=== PATIENT | female | born 1955 | race Caucasian/White ===

== ENCOUNTER → 2017-06-19 14:56 | Outpatient (CLI) | payer MEDICARE, SELFPAY ==
--- NOTE | 2017-06-19 15:16 | US_ITS ---
US thyroid HISTORY: Follow-up thyroid nodule. ITS.REASON: LEFT THYROIID NODULES ORDERING PHYSICIAN: Christiano Mendieta MD PATIENT AGE: 61 years COMPARISON: 05/06/2012, more recent studies have been performed at another institution not available for comparison FINDINGS: Right lobe: Status post right thyroidectomy Left lobe: 4.7 x 1.7 x 1.9 cm. Solid appearing isoechoic nodule upper pole 1.3 x 1.2 cm. Unchanged 5 mm area of calcification with posterior acoustical shadowing mid polar region 5 mm hypoechoic nodule mid polar region 10 x 6 mm isoechoic solid-appearing nodule lower pole probably unchanged given the difference in technique. IMPRESSION: 1. Right thyroidectomy. 2. Multiple left thyroid nodules overall not significantly changed
[2017-06-19 18:34] LABS: Thyroid Stimulating Hormone 0.72 uIU/ml (0.358-3.740)
[2017-06-20 14:37] LABS: Free T4 (Free Thyroxine) 1.44 ng/dl (0.76-1.46)
== END ==
PROVIDERS: Family Provider Family Medicine; PCP Family Medicine; Visit Provider Otolaryngology
DX: E03.0 Congenital hypothyroidism with diffuse goiter (principal)
CPT/HCPCS: 36415; 76536; 84439; 84443; 84481

== ENCOUNTER → 2017-09-12 08:34 | Outpatient (CLI) | payer MEDICARE, SELFPAY ==
--- NOTE | 2017-09-12 08:38 | MR_ITS ---
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 Neck pain. Tingling and numbness in left hand. Pain in rt hand. Symptoms x1 month ITS.REASON: neck pain ORDERING PHYSICIAN: Can Hays PATIENT AGE: 61 years COMPARISON: None TECHNIQUE: Standard multiplanar multiecho sequences are performed without contrast. 3-D MIP and myelographic images are also rendered and reviewed FINDINGS: There is normal alignment. There is exaggeration of the cervical lordosis. The craniocervical junction has an unremarkable appearance. C2-C3: Unremarkable. C3-C4: Mild right-sided uncovertebral and facet hypertrophy with mild right foraminal narrowing. C4-C5: Right-sided uncovertebral and facet hypertrophy with moderate right-sided foraminal narrowing C5-C6: Severe degenerative disc disease with endplate osteophytes bulging disc/osteophyte complex posteriorly with facet and uncovertebral hypertrophy with severe right-sided foraminal narrowing and mild left foraminal narrowing. There is canal stenosis with mild impingement upon the anterior aspect of the cord and minimal cord flattening. C6-C7: Moderate degenerative disc disease with bulging disc with bilateral uncovertebral hypertrophy and moderate to severe bilateral foraminal narrowing with canal stenosis of 9 mm. The cord does not appear flattened or imaged upon at this level. C7-T1: Degenerative disc disease. T1-T2: Degenerative disc disease with minimal central disc protrusion/bulging of the disc as seen on the sagittal images. IMPRESSION: 1. Abnormal MRI of the cervical spine with degenerative disc disease and bulging discs/disc osteophyte complexes along with facet and uncovertebral hypertrophy/arthritic change with multilevel cervical spondylosis as described above. Please see above for detailed description at each level. 2 .Severe degenerative disc disease at C5-C6 with endplate osteophytes bulging disc/osteophyte complex posteriorly with facet and uncovertebral hypertrophy with severe right-sided foraminal narrowing and mild left foraminal narrowing. There is canal stenosis with mild impingement upon the anterior aspect of the cord and minimal cord flattening. 3. C6-C7: Moderate degenerative disc disease with bulging disc with bilateral uncovertebral hypertrophy and moderate to severe bilateral foraminal narrowing with canal stenosis of 9 mm. The cord does not appear flattened or imaged upon at this level.
== END ==
PROVIDERS: Family Provider Family Medicine; PCP Family Medicine; Visit Provider Nurse Practitioner Family
DX: M54.2 Cervicalgia (principal); G62.9 Polyneuropathy, unspecified; M79.641 Pain in right hand; M79.642 Pain in left hand
CPT/HCPCS: 72141; 76376

== ENCOUNTER → 2017-10-01 10:00 | Outpatient (POV) | payer MEDICARE, SELFPAY ==
[2017-10-01 11:43] LABS: Basophils % 0.5 % (0.1-2.0); Eosinophils # 0.2 K/mm3 (0.0-0.4); Eosinophils % 2.3 % (0.1-12.0); Hematocrit 47.2 % (37.0-47.0); Hemoglobin 15.3 g/dL (12.2-16.2); Lymphocytes # 1.8 K/mm3 (0.7-4.5); Mean Corpuscular HGB Conc 32.4 g/dL (31.8-35.4); Mean Corpuscular Hemoglobin 28.4 pg (27.0-31.2); Mean Corpuscular Volume 87.4 fl (81-99); Monocytes # 0.3 K/mm3 (0.1-1.0); Neutrophils # 4.3 K/mm3 (1.8-7.8); Neutrophils % 65.2 % (37.0-80.0); Platelet Count 204 K/mm3 (142-424); Red Cell Distribution Width 12.8 % (11.5-17.5); White Blood Count 6.6 K/mm3 (4.8-10.8)
[2017-10-01 13:44] LABS: Alanine Aminotransferase 39 U/L (12-78); Albumin/Globulin Ratio 1.4 (1.1-1.8); Alkaline Phosphatase 65 U/L (46-116); Anion Gap 13.1 mEq/L (5-15); Aspartate Amino Transferase 20 U/L (15-37); Bilirubin,Total 0.3 mg/dL (0.2-1.0); Blood Urea Nitrogen 16 mg/dL (7-18); Carbon Dioxide 28 mmol/L (21.0-32.0); Chloride 105 mmol/L (98-107); Creatinine,Serum 0.91 mg/dL (0.55-1.02); Estimated Glomerular Filt Rate 63 ml/min (>60); GFR (African American) 76 ML/MIN (>60); Globulin 2.9 gm/dl (1.3-3.2); Glucose 126 mg/dL (74-106); Potassium 4.1 mmoL/L (3.5-5.1); Sodium 142 mmol/L (136-145); Total Protein,Serum 6.9 gm/dL (6.4-8.2)
[2017-10-03 06:43] LABS: Vitamin B12 363 pg/mL (232-1245); Vitamin D 25 Hydroxy 20.8 ng/mL (30.0-100.0)
== END ==
PROVIDERS: Nurse Practitioner Family; Family Provider Family Medicine; PCP Family Medicine; Visit Provider Specialist
DX: M54.2 Cervicalgia (principal); M79.641 Pain in right hand; M79.642 Pain in left hand; G62.9 Polyneuropathy, unspecified
CPT/HCPCS: 36415; 80053; 82607; 82652; 85025; 95886; 95909

== ENCOUNTER → 2017-11-01 14:13 | Outpatient (POV) | payer MEDICARE, SELFPAY | PROVIDERS: Family Provider Family Medicine; PCP Family Medicine; Visit Provider Neurological Surgery | DX: Z00.00 Encounter for general adult medical examination without abnormal findings (principal) ==

== ENCOUNTER 2017-11-02 11:00 | Outpatient (RCR) | payer MEDICARE, SELFPAY ==
--- NOTE | 2017-10-12 11:33 | HMH.PTOPEV ---
Rehab Outpatient Evaluation Rehab OP Evaluation Start: 10/12/17 11:22 Freq: Status: Active Protocol: Document 10/12/17 11:22 ED (Rec: 10/12/17 11:31 ALFONSOERNESTOSOWMYA [id number]) Electronically Signed By Kyree Randolph, PT 10/12/17 11:22 Outpatient Therapy Subjective History Subjective History Patient is a 61 year old female presenting to outpatient PT with reports of chronic neck pain. Most recent diagnostics indicate cervical spine DDD/OA. Hx of thoracolumbar scoliosis with Mendez rosalee placement approximately 22 years ago. She is currently being treated in OT for L CTS. No reports of RUE radiculopathy. Chief Complaint Pain Stiff Symptom Type Ache Sharp Symptoms Relieved By Rest/Positioning Symptoms Aggravated By Physical Activity Prior Functional Limitations None Current Functional Limitations Reaching Lifting Housework Dressing Driving Sleeping Recreation Activity Walking Symptom Description Constant but Variable Level of pain today (0-10) 3 Pain scale - at its best (0-10) 7 Pain scale - at its worst (0-10) 2 Cervical Eval Palpation Cervical Muscles R Cervical Paraspinal Flexibility Deficits Upper Trapezius Muscle Length (R) Moderate Tightness (L) Moderate Tightness Pectoralis Minor Muscle Length (R) Moderate Tightness (L) Moderate Tightness Passive Joint Mobility Cervical PIVM Dec: R OA L OA R AA L AA R C2/3 L C2/3 R C3/4 L C3/4 R C4/5 L C4/5 R C5/6 L C5/6 R C6/7 L C6/7 R C7/T1 L C7/T1 AROM Cervical Spine E
--- NOTE | 2017-10-12 11:57 | HMH.PTOPEV ---
Rehab Outpatient Evaluation Rehab OP Evaluation Start: 10/12/17 11:22 Freq: Status: Active Protocol: Document 10/12/17 11:28 RMARSHALL (Rec: 10/12/17 11:56 [id number] Electronically Signed By Gary Dunaway OT 10/12/17 11:28 Outpatient Therapy Subjective History Subjective History Pt is a 61 year old female who reports to therapy for initial evaluation to bilateral hands. Pt reports her pain in the left thumb started ~6-7 months ago and her right thumb just started hurting her as well. Pt had a nerve conduction test resulting in bilateral carpal tunnel. However, all of her pain is at bilateral thumb bases. She does not have any symptoms in the hand. Pt also test positive for Nilda test in both thumbs; indicative of de Quervains. Pt's AROM/Strength in bilateral wrist is WNL. Both thumbs are declined in AROM and strength. Devops Developer strength is affect as well. Right hand is dominant. Pt will continue to be seen in order to address these deficits. Chief Complaint Pain Stiff Swelling Weakness Decreased Devops Developer Strength Decreased Coordination Symptom Type Ache Throb Sharp Dull Stabbing Shooting Symptoms Relieved By Nothing Symptoms Aggravated By Physical Activity Twisting Lifting Prior Functional Limitations None Current Functional Limitations Reaching Lifting Housework Dressing Desk Work/Reading Driving Sleeping Recreation Activity Symptom Description Constant but Variab
== END 2017-11-02 11:01 | disposition home or self-care (01) ==
LOC: PT 11:00
PROVIDERS: Family Provider Family Medicine; PCP Family Medicine; Visit Provider Specialist
DX: M50.30 Other cervical disc degeneration, unspecified cervical region; G62.9 Polyneuropathy, unspecified; G56.01 Carpal tunnel syndrome, right upper limb; G56.02 Carpal tunnel syndrome, left upper limb
CPT/HCPCS: 97010; 97012; 97014; 97033; 97035; 97110; 97140; 97163; 97166; G0283

== ENCOUNTER 2018-05-24 14:30 | Outpatient (RCR) | payer MEDICARE, SELFPAY ==
--- NOTE | 2018-04-30 09:32 | HMH.PTOPEV ---
PT Outpatient Evaluation Rehab PT Outpatient Evaluation Start: 04/30/18 09:21 Freq: Status: Active Protocol: Document 04/30/18 09:22 TIBURCIO (Rec: 04/30/18 09:32 TIBURCIO [id number]) Electronically Signed By Shawn Rojas, PT 04/30/18 09:22 Outpatient Therapy Subjective History Subjective History Pt reports h/o chronic back pain for ~40 yrs. Pt reports multiple spine sx's, loyola rods for scoliosis, and fusions of all lumbar levels. Pt reports exacerbation of back pain over the last ~2 months, L sided lumbar mm pain and sacral area pain as well, insidious onset . Chief Complaint Pain Stiff Symptom Type Ache Sharp Dull Symptoms Relieved By Heat Ice Symptoms Aggravated By Sitting Standing Physical Activity Prior Functional Limitations Driving Standing Sitting Current Functional Limitations Driving Standing Sitting Symptom Description Constant but Variable Level of pain today (0-10) 8 Pain scale - at its best (0-10) 7 Pain scale - at its worst (0-10) 8 Lumbopelvic Eval Posture Thoracic Spine Posture Standing Position Flattened Lumbar Spine Posture Standing Position Flattened Assistive device Assistive Devices None / NA Gait Observation General Gait Pattern Observation Antalgic Gait Palapation tenderness left paraspinal tenderness Yes: 3/4 buttock tenderness Yes: 3/4 Lumbar/Sacral Palpation Findings Tenderness Accessory Movement L-spine Vertebrae Accessory Movements Left P/A Kerens that Elicit Symptoms S1 left bilateral Range of Motion Lumbar Spine Active Flexion Range of 0-50 Motion (degrees) Lumbar Spine Active Extension Range of 0-5 Motion (degrees) Left Lumbar Spine Lateral Flexion Active 0-10 Range of Motion (degrees) Right Lumbar Spine Lateral Flexion 0-10 Active Range of Motion (degrees) Lumbar Spine ROM Limitations Bony Restriction Pain Manual Muscle Test Bilateral Knee Extension Strength Grade 5 Normal Knee Flexion Strength Grade 5 Normal
== END 2018-05-24 14:35 | disposition home or self-care (01) ==
LOC: PT 14:30
PROVIDERS: Visit Provider Family Medicine
DX: M54.5 Low back pain (principal); M54.9 Dorsalgia, unspecified
CPT/HCPCS: 97010; 97014; 97035; 97110; 97163; G0283

== ENCOUNTER → 2018-06-19 12:59 | Outpatient (CLI) | payer MEDICARE, SELFPAY | PROVIDERS: PCP Family Medicine; Visit Provider Family Medicine | DX: M54.5 Low back pain (principal) ==

== ENCOUNTER → 2018-06-26 08:21 | Outpatient (CLI) | payer MEDICARE, SELFPAY | PROVIDERS: PCP Family Medicine; Visit Provider Family Medicine | DX: M54.42 Lumbago with sciatica, left side (principal); M54.41 Lumbago with sciatica, right side ==

== ENCOUNTER → 2018-08-14 09:58 | Outpatient (CLI) | payer MEDICARE, SELFPAY ==
--- NOTE | 2018-08-14 10:07 | MM_ITS ---
MM Dig screening mamm BI w/CAD CAD Screening COMPARISON: Digital mammograms with CAD 02/23/2011, INDICATION: There is a history of breast cancer in patient's mother diagnosed at age 50 TECHNIQUE: Standard CC and MLO images were obtained. R2 CAD reviewed. FINDINGS: Scattered fibroglandular densities are seen throughout both breast. There is an asymmetric density near the axillary tail of the left breast seen on the MLO view which was seen on the previous study and is actually slightly smaller than noted previously. This likely is a summation shadow as it is not definitely seen on the cc view and exaggerated cc views. There is no suspicious lesion and there are no suspicious microcalcifications. There are couple of benign-appearing microcalcifications right breast. IMPRESSION: Fibrofatty parenchyma no suspicious lesion seen BI-RADS Category: 2 Benign Finding(s) RECOMMENDED FOLLOW-UP: 1YR - 1 YEAR FOLLOW-UP (A letter has been sent to the patient regarding results of the study.)
--- NOTE | 2018-08-14 10:08 | XR_ITS ---
XR DEXA axial skeleton HISTORY: ITS.REASON: POST MENOPAUSAL ORDERING PHYSICIAN: Ghassan Johansen MD PATIENT AGE: 62 years COMPARISON: None FINDINGS: The BMD measured at the Left femoral neck is 1.084 g/cm squared with a T score of 0.3. This is considered Normal according to the World Health Organization criteria. Fracture risk is Low. IMPRESSION: Normal bone density with low fracture risk. Suggest follow-up exam July 2020
== END ==
PROVIDERS: PCP Family Medicine; Visit Provider Family Medicine
DX: Z12.31 Encounter for screening mammogram for malignant neoplasm of breast (principal); Z78.0 Asymptomatic menopausal state
CPT/HCPCS: 77067; 77080

== ENCOUNTER → 2018-09-05 14:34 | Outpatient (CLI) | payer MEDICARE, SELFPAY ==
--- NOTE | 2018-09-05 | CA_ITS ---
PROCEDURE: 2-D M-mode and color Doppler study INDICATIONS FOR THE TEST: Chest pain COPD Heart Murmur Tobacco Smoking Palpitations Fatigue Syncope Edema Hypertension+Diabetes Mellitus+ Rheumatic Fever SOB [place] Obesity Hyperlipidemia+ Family History HD Additional History PT STATES BAV ACCORDING TO HEART CATH PATIENT INFORMATION HEIGHT: 67 WEIGHT:197 GENDER: Female B/P:138/64 2-D/M-MODE INTERPRETATION: 2-D MEASUREMENTS OBSERVED VALUES IN CMS Right Ventricular Dimension (RVDd) 1.6 Interventricular Septum (Thickness)(IVsd) 1.3 Left Ventricular Internal Dimensions(LVIDd) 5.0 Left Ventricular Posterior Wall (Thickness)(LVPWd) 0.8 Aortic Root 2.9 Aortic Cusp Separation 1.7 Left Atrial Dimensions (LAD) 3.3 2D 1. Left atrium is mildly enlarged, left ventricle is normal size, mild concentric left ventricular hypertrophy, visually estimated ejection fraction of 55% with no regional wall motion abnormality. 2. The right atrium and right ventricle are normal size and contractility. 3. The aortic valve is trileaflet, its minimally thickened and calcified. 4. The mitral and tricuspid valvular grossly normal. 5. The pulmonic valve is poorly visualized. 6. No significant pericardial effusion noted. DOPPLER INTERROGATION: Doppler interrogation of the aortic, mitral and tricuspid valve reveals presence of moderate aortic, mild mitral and tricuspid regurgitation, tricuspid regurgitation jet velocity is inadequate for calculation of the right ventricular systolic pressure, grade 1 diastolic dysfunction seen with tissue Doppler evidence of raised left atrial pressure. Inferior vena cava is not well visualized CONCLUSION: 1. Mildly enlarged left atrium, normal left ventricular size, mild concentric left ventricular hypertrophy, visually estimated ejection fraction 55% with no regional wall motion abnormality, grade 1 diastolic dysfunction seen with tissue Doppler evidence of raised left atrial pressure. 2. Thickened and calcified aortic valve, aortic valve is trileaflet, there is no aortic stenosis, there is moderate aortic insufficiency. 3. Mild mitral and tricuspid regurgitation 4. No significant pericardial effusion noted.
== END ==
PROVIDERS: PCP Physician Assistant; Visit Provider Physician Assistant
DX: R01.1 Cardiac murmur, unspecified (principal)
CPT/HCPCS: 93306

== ENCOUNTER 2018-09-13 03:00 | Inpatient (IN) ==
[2018-09-13 03:40] LABS: Microscopic, Urine URINE MICROSCOPIC (MICROSCOPIC)
[2018-09-13 03:41] LABS: Basophils # 0.1 K/mm3 (0-0.2); Basophils % 0.5 % (0.1-2.0); Eosinophils # 0.1 K/mm3 (0.0-0.4); Eosinophils % 1.1 % (0.1-12.0); Hematocrit 46.4 % (37.0-47.0); Hemoglobin 15.5 g/dL (12.2-16.2); Lymphocytes # 2.7 K/mm3 (0.7-4.5); Lymphocytes % 22.3 % (10-50); Mean Corpuscular HGB Conc 33.5 g/dL (31.8-35.4); Mean Corpuscular Hemoglobin 28.2 pg (27.0-31.2); Mean Corpuscular Volume 84.1 fl (81-99); Mean Platelet Volume 7.7 fl (7.4-10.4); Monocytes # 0.7 K/mm3 (0.1-1.0); Monocytes % 6.1 % (1.7-9.3); Neutrophils # 8.3 K/mm3 (1.8-7.8); Neutrophils % 69.9 % (37.0-80.0); Platelet Count 258 K/mm3 (142-424); Red Blood Count 5.51 M/mm3 (4.20-5.40); Red Cell Distribution Width 13.3 % (11.5-17.5); White Blood Count 11.9 K/mm3 (4.8-10.8)
[2018-09-13 03:44] LABS: Appearance,Urine CLEAR (Clear); Bilirubin,Urine Negative (Negative); Blood, Urine Negative (Negative); Color,Urine YELLOW (Yellow); Glucose,Urine (UA) Negative (Negative); Ketones,Urine Negative (Negative); Leukocyte Esterase,Urine 1+ (Negative); Protein,Urine Negative (Negative)
[2018-09-13 03:54] LABS: Albumin Level 4.1 gm/dL (3.4-5.0); Albumin/Globulin Ratio 1.1 (1.1-1.8); Bilirubin,Total 0.5 mg/dL (0.2-1.0); C-Reactive Protein 1.7 mg/L (0.0-0.9); Calcium 9.8 mg/dL (8.5-10.1); Globulin 3.9 gm/dl (1.3-3.2)
[2018-09-13 03:57] LABS: Bacteria,Urine 1+ /lpf
[2018-09-13 04:27] LABS: Erythrocyte Sedimentation Rate 8 mm/hr (0-30)
--- NOTE | 2018-09-13 05:36 | Emergency Department Note ---
ED Disposition Clinical Impression: Diverticulitis, Renal insufficiency Disposition: Admitted As Inpatient Condition on Discharge: Good Referrals: Ghassan Johansen MD [Primary Care Provider] - - Critical Care Critical Care Time: No Attestation: On 09/13/18, the high probability of a clinically significant, sudden or life threatening deterioration of the following system(s) required my full and direct attention, intervention and personal management. The time I documented below is in addition to time spent performing reported procedures but includes the following listed in this critical care notation. Medical Decision Making - Medical Records Medical records reviewed: Yes: I reviewed the patient's medical records. - Bob Inquiry Pt receiving controlled substance: No Vital Signs: 09/13/18 03:01 Temperature 98.3 F Temperature Source Oral Pulse Rate [Right Radial] 77 Respiratory Rate 18 Blood Pressure [Right Arm] 155/71 H Blood Pressure Mean [Right Arm] 99 Blood Pressure Source [Right Arm] Automatic Cuff Blood Pressure Position [Right Arm] Sitting 02 Sat by Pulse Oximetry 91 L - Lab Data Lab results reviewed: Yes: I reviewed the patient's lab results. Lab Results 09/13/18 03:30: Urine Color Yellow, Urine Appearance Clear, Urine pH 6.0, Ur Specific Joes 1.020, Urine Protein Negative, Urine Glucose (UA) Negative, Urine Ketones Negative, Urine Blood Negative, Urine Nitrate Negative, Urine Bilirubin Negative, Urine Urobilinogen 1.0, Ur Leukocyte Esterase 1+ A, Urine WBC 5-10, Ur Squamous Epith Cells 3-5, Urine Bacteria 1+ 09/13/18 03:30: WBC 11.9 H, RBC 5.51 H, Hgb 15.5, Hct 46.4, MCV 84.1, MCH 28.2, MCHC 33.5, RDW 13.3, Plt Count 258, MPV 7.7, Neut % (Auto) 69.9, Lymph % (Auto) 22.3, Williamson % (Auto) 6.1, Eos % (Auto) 1.1, Baso % (Auto) 0.5, Neut # (Auto) 8.3 H, Lymph # (Auto) 2.7, Williamson # (Auto) 0.7, Eos # (Auto) 0.1, Baso # (Auto) 0.1, ESR 8 09/13/18 03:30: Sodium 139, Potassium 4.0, Chloride 99, Carbon Dioxide 30, Anion Gap 14.0, BUN 27 H, Creatinine 1.07 H, Estimated Creat Clear 78, Estimated GFR 52 L, Est GFR ( Amer) 63, Glucose 182 H, Calcium 9.8, Total Bilirubin 0.5, AST 17, ALT 35, Alkaline Phosphatase 81, C-Reactive Protein 1.7 H, Total Protein 8.0, Albumin 4.1, Globulin 3.9 H, Albumin/Globulin Ratio 1.1, Amylase 64, Lipase 456 H Result diagrams: 09/13/18 03:30 09/13/18 03:30 Orders (Tests/Meds): ED MEDICATIONS Generic Name Dose Route Start Last Admin Trade Name Freq PRN Reason Stop Dose Admin Sodium Chloride 1,000 mls @ 999 mls/hr 09/13/18 03:30 09/13/18 03:36 Sod Chlor 0.9% 1000ml Bag IV 09/13/18 04:30 999 mls/hr .Q1H1M RADHA Administration Discontinued Medications Generic Name Dose Route Start Last Admin Trade Name Freq PRN Reason Stop Dose Admin Hydromorphone HCl 0.5 mg 09/13/18 03:28 09/13/18 03:35 Dilaudid 2mg/Ml Syringe IV 09/13/18 03:29 0.5 mg ONCE ONE Administration Ioversol 75 ml 09/13/18 04:50 09/13/18 04:51 Rad-Optiray 350 100ml Vial IV 09/13/18 04:51 75 ml ONCE ONE Administration Protocol Ketorolac Tromethamine 30 mg 09/13/18 03:28 09/13/18 03:39 Toradol 30mg/Ml Vial IV 09/13/18 03:29 30 mg ONCE ONE Administration Ondansetron HCl 4 mg 09/13/18 03:28 09/13/18 03:39 Zofran 4mg/2ml Vial IV 09/13/18 03:29 4 mg ONCE ONE Administration Sodium Chloride 10 ml 09/13/18 04:50 09/13/18 04:51 Rad-Saline Flush 10ml Syringe IV 09/13/18 04:51 10 ml ONCE ONE Administration ORDERS Category Date Time Status Urine Culture Stat Micro 09/13/18 03:30 Received - CT Data CT Scan: Abdomen, Pelvis Time Received: 05:[address] Reviewed: Yes: I have viewed the radiologist's interpretation Preliminary Findings: Abnormal (diverticulitis) - Physician Consults Physician Consulted: mary grace Reason -: Admission Nausea/Vomiting/Diarrhea HPI - General Chief complaint: Abdominal Pain Stated complaint: pain in lft groin area Time Seen by Provider: 09/13/18 04:00 Mode of Arrival: Ambulatory Source of Information: Patient, Spouse, Medical Record Limitations: No Limitations Description of Symptoms (Recalled from ER Triage Doc. by RN): c/o lower lt to mid abd pain. started james. says she has an appointment with Mirta of in the am but couldnt stand it any longer. - History of Present Illness HPI Narrative: pt with 2 day hx of lt lower abd pain with nausea complaint: nausea, vomiting, abdominal pain Onset (ago): day(s) Associated Abdominal Pain: Yes Location of pain: LLQ Severity: moderate Associated symptoms: denies other symptoms - Related Data Home Medications Medication Instructions Recorded Confirmed duloxetine 60 mg capsule,delayed 60 mg PO DAILY 30 Days #30 09/05/17 09/13/18 release fenofibric acid (choline) 135 mg 135 mg PO DAILY 30 Days #30 09/05/17 09/13/18 capsule,delayed release levothyroxine 88 mcg tablet 88 mcg PO DAILY 90 Days #90 09/05/17 09/13/18 losartan 100 1 tab PO DAILY 90 Days #90 09/05/17 09/13/18 mg-hydrochlorothiazide 12.5 mg tablet sitagliptin 50 mg-metformin ER 1 tab PO DAILY 30 Days #60 09/05/17 09/13/18 1,000 mg tablet,extended release 24h mp Carvedilol [Carvedilol 6.25mg Tab] 6.25 mg PO BID 09/13/18 09/13/18 Furosemide [Furosemide 20mg Tab] 20 mg PO DAILY 09/13/18 09/13/18 Allergies Allergy/AdvReac Type Severity Reaction Status Date / Time morphine [MORPHINE] Allergy Unknown GI UPSET Verified 09/13/18 03:04 Sulfa (Sulfonamide Allergy Unknown SWELLING Verified 09/13/18 03:04 Antibiotics) [SULFA (SULFONAMIDE ANTIBIOTICS)] sulfamethoxazole Allergy Unknown SWELLING Verified 09/13/18 03:04 [From BACTRIM] trimethoprim [From BACTRIM] Allergy Unknown SWELLING Verified 09/13/18 03:04 [facility] History - Hepatitis A Screen Drug use history?: No High risk sexual behaviors?: No History of sexually transmitted infection?: No Currently employed?: No Childcare worker?: No Do you have indoor plumbing?: Yes Do you have electricity?: Yes Attestation statement:: This patient has been screened for Hepatitis A risk factors. I have reviewed the patient's past medical history: Yes Medical History: Reports:: Depression, Diabetes Mellitus Type 2, Hyperlipidemia, Hypertension, Kidney Stones Other Medical History: Reports: Arthritis, Thyroid Disease Laterality Cases: Bilateral: Tonsillectomy Other Surgeries: Yes: Cholecystectomy, Hysterectomy-Total, Thyroidectomy, Tubal Ligation, Other Comment: back - Social History Smoking Status: Never smoker Alcohol Intake: never Alcohol Intake Frequency:: other Substance Use Type: denies use Occupational Status: retired Housing: house Household Members: family - Psychiatric History Expresses thoughts of harming self/others: None Suicide Plan Description: No Plan Pschychiatric History:: Reports:: Depression Family Hx:: Cancer ROS Obtained: Yes All systems reviewed & no additional complaints - Constitutional Constitutional: Denies fever(s) - Eyes Eyes: Denies change in vision - ENT Ears, Nose, Mouth, and Throat: Denies sore throat - Cardiovascular Cardiovascular: Denies chest pain - Respiratory Respiratory: No cough - Gastrointestinal Gastrointestingal: Reports: abdominal pain, nausea, vomiting. Denies: diarrhea - Genitourinary Female Genitourinary: Denies hematuria - Musculoskeletal Musculoskeletal: Denies limited range of motion, Denies neck pain - Integumentary/Breasts Skin/Breast: Denies rash - Neurologic Neurologic: Denies seizure-like activity Physical Exam - General General appearance: alert - Head Head exam: normocephalic - Eye Eye exam: Present: PERRL, EOMI - ENT ENT exam: Present: mucous membranes moist - Neck Neck exam: Present: trachea midline - Respiratory Respiratory exam: Present: normal lung sounds bilaterally - Cardiovascular Cardiovascular exam: Present: regular rate, systolic murmur - Abdominal Exam Abdominal exam: Present: soft, tenderness Abdominal tenderness: Present: LLQ, moderate - Extremities Exam Extremities exam: Present: full ROM - Neurological Exam Neurological exam: Present: alert, oriented X3, CN II-XII intact - Psychiatric Psychiatric exam: Present: normal affect - Skin Skin exam: Absent: rash
--- NOTE | 2018-09-13 07:50 | Pharmacy Consult Notes ---
[facility] Pharmacy VTE Monitoring - Patient Demographics Admission date: 09/13/18 Report Date: 09/13/18 Time: 07:50 Allergies/Adverse Reactions: Patient Allergies morphine [MORPHINE] Allergy (Unknown, Verified 09/13/18 03:04) GI UPSET Sulfa (Sulfonamide Antibiotics) [SULFA (SULFONAMIDE ANTIBIOTICS)] Allergy (Unknown, Verified 09/13/18 03:04) SWELLING sulfamethoxazole [From BACTRIM] Allergy (Unknown, Verified 09/13/18 03:04) SWELLING trimethoprim [From BACTRIM] Allergy (Unknown, Verified 09/13/18 03:04) SWELLING Height: 1.7 m Weight: 92.164 kg Patient Problems: Current Active Problems Diverticulitis (Acute) Renal insufficiency (Acute) - VTE Risk Labs: VTE Related Lab Results Hgb 15.5 g/dL (12.2-16.2) 09/13/18 03:30 Hct 46.4 % (37.0-47.0) 09/13/18 03:30 Plt Count 258 K/mm3 (142-424) 09/13/18 03:30 BUN 27 mg/dL (7-18) H 09/13/18 03:30 Creatinine 1.07 mg/dL (0.55-1.02) H 09/13/18 03:30 Estimated Creat Clear 78 mL/min (50-200) 09/13/18 03:30 Was VTE Risk Assessment Performed: Yes VTE Score: 5 VTE Risk Level: Low Risk Clinical Trial Participant: No - Prophylaxis VTE Prophylaxis Ordered?: Yes Types of VTE Prophylaxis: TEDS Knee High
--- NOTE | 2018-09-13 08:32 | History & Physical Report ---
*Admission Date: 09/13/18 *Chief complaint: LLQ pain *History of present illness: Ms. Cano is a 62-year-old female with a history of diabetes, hypertension, hyperlipidemia, and history of diverticulosis with an episode of diverticulitis approximately 6 years ago. She states on Sunday she began having left lower quadrant pain and felt constipated. The pain continued to worsen, thus she presented to the emergency room for evaluation. She was found to have a diverticulitis on CT scan and was admitted for pain management and IV antibiotics. [facility] History Medical History: Reports:: Congestive Heart Failure, Depression, Diabetes Mellitus Type 2, Hyperlipidemia, Hypertension, Kidney Stones Denies:: Cancer, Diabetes Mellitus Type 1, MRSA *Have you ever received a pneumonia vaccine?: Yes *Have you received a flu vaccine this season?: No Other Medical History: Reports: Arthritis, Thyroid Disease, Other (Diverticulosis/Diverticulitis) Laterality Cases: Bilateral: Tonsillectomy Other Surgeries: Yes: Appendectomy, Cardiac Catheterization, Cholecystectomy, Colonoscopy, EGD, Hysterectomy-Total, Thyroidectomy, Tubal Ligation, Other (Back surgery) Amputation: No Fractures: No - *Social History Educational Level: Completed High School Smoking Status: Never smoker Alcohol Intake: never Alcohol Intake Frequency:: other Substance Use Type: denies use *Occupational Status:: retired Housing: house Household Members: spouse *Travel in the last 8 weeks: None - Psychiatric History Expresses thoughts of harming self/others: None Suicide Plan Description: No Plan Pschychiatric History:: Reports:: Depression Family Hx:: Cancer, Diabetes, Hyperlipidemia Review of Systems - Constitutional Denies chills, Denies fever(s), Denies weakness - Eyes Denies blurry vision, Denies double vision - ENT Denies nasal congestion, Denies sore throat - *Cardiovascular Denies chest pain, Denies rapid, pounding, or irregular heartbeat - *Respiratory Denies cough, Denies shortness of breath - *Gastrointestinal Reports abdominal pain (LLQ), Reports constipation, Denies loose stools, Denies nausea, Denies vomiting - *Genitourinary Denies difficulty urinating, Denies painful urination - *Musculoskeletal Reports back pain - *Neurologic Denies headache(s), Denies seizure-like activity, Denies dizziness, Denies weakness Meds Home Medications Medication Instructions Recorded Confirmed Type duloxetine 60 mg capsule,delayed 60 mg PO DAILY 30 Days #30 09/05/17 09/13/18 History release fenofibric acid (choline) 135 mg 135 mg PO DAILY 30 Days #30 09/05/17 09/13/18 History capsule,delayed release levothyroxine 88 mcg tablet 88 mcg PO DAILY 90 Days #90 09/05/17 09/13/18 History losartan 100 1 tab PO DAILY 90 Days #90 09/05/17 09/13/18 History mg-hydrochlorothiazide 12.5 mg tablet Carvedilol [Carvedilol 6.25mg Tab] 6.25 mg PO BID 09/13/18 09/13/18 History Furosemide [Furosemide 20mg Tab] 20 mg PO DAILY 09/13/18 09/13/18 History Gabapentin [Gabapentin 100mg Cap] 100 mg PO NEEDED PRN 09/13/18 09/13/18 History Metformin HCl 1,000 mg PO BID 09/13/18 09/13/18 History Montelukast Sodium [Montelukast 10 mg PO HS 09/13/18 09/13/18 History 10mg Tab] Allergies Allergy/AdvReac Type Severity Reaction Status Date / Time morphine [MORPHINE] Allergy Unknown GI UPSET Verified 09/13/18 03:04 Sulfa (Sulfonamide Allergy Unknown SWELLING Verified 09/13/18 03:04 Antibiotics) [SULFA (SULFONAMIDE ANTIBIOTICS)] sulfamethoxazole Allergy Unknown SWELLING Verified 09/13/18 03:04 [From BACTRIM] trimethoprim [From BACTRIM] Allergy Unknown SWELLING Verified 09/13/18 03:04 Exam Vital signs and Labs for Last 24 Hours: Temp Pulse Resp BP Pulse Ox 97 F L 60 24 136/55 L 94 L 09/13/18 06:32 09/13/18 06:32 09/13/18 06:32 09/13/18 06:32 09/13/18 06:32 Laboratory Results - last 24 hr 09/13/18 03:30: Urine Color Yellow, Urine Appearance Clear, Urine pH 6.0, Ur Specific [place] 1.020, Urine Protein Negative, Urine Glucose (UA) Negative, Urine Ketones Negative, Urine Blood Negative, Urine Nitrate Negative, Urine Bilirubin Negative, Urine Urobilinogen 1.0, Ur Leukocyte Esterase 1+ A, Urine WBC 5-10, Ur Squamous Epith Cells 3-5, Urine Bacteria 1+ 09/13/18 03:30: WBC 11.9 H, RBC 5.51 H, Hgb 15.5, Hct 46.4, MCV 84.1, MCH 28.2, MCHC 33.5, RDW 13.3, Plt Count 258, MPV 7.7, Neut % (Auto) 69.9, Lymph % (Auto) 22.3, [place] % (Auto) 6.1, Eos % (Auto) 1.1, Baso % (Auto) 0.5, Neut # (Auto) 8.3 H, Lymph # (Auto) 2.7, [place] # (Auto) 0.7, Eos # (Auto) 0.1, Baso # (Auto) 0.1, ESR 8 09/13/18 03:30: Sodium 139, Potassium 4.0, Chloride 99, Carbon Dioxide 30, Anion Gap 14.0, BUN 27 H, Creatinine 1.07 H, Estimated Creat Clear 78, Estimated GFR 52 L, Est GFR ( Amer) 63, Glucose 182 H, Calcium 9.8, Total Bilirubin 0.5, AST 17, ALT 35, Alkaline Phosphatase 81, C-Reactive Protein 1.7 H, Total Protein 8.0, Albumin 4.1, Globulin 3.9 H, Albumin/Globulin Ratio 1.1, Amylase 64, Lipase 456 H 09/13/18 06:32: POC Glucose 139 H I & O for Last 24 hours: Intake & Output 09/10/18 09/11/18 09/12/18 09/13/18 11:59 11:59 11:59 11:59 Intake Total 1100 / 1100 Balance 1100 / 1100 Weight 203 lb 3 oz - Constitutional no acute distress - *Routine HEENT Exam Head: Present: normocephalic Eye: Present: EOMI, PERRL ENT: Present: mucous membranes dry - *Routine Neck Exam Present: supple. Absent: lymphadenopathy - *Routine Respiratory Exam Present: CTA bilaterally - *Routine Cardiovascular Exam Present: RRR - *Routine Abdominal Exam Present: soft, normoactive bowel sounds, tenderness (LLQ) - *Routine Extremities Exam Absent: cyanosis, clubbing, edema - *Routine Skin Exam Present: warm. Absent: rash - *Routine Neurological Exam Present: alert, oriented X3 H&P: Result - Impressions Abd CT Colonic diverticulosis with focal thickening of the descending colon in the left lower quadrant and mild stranding of the pericolic fat consistent with diverticulitis. No abscess or perforation. Recommend follow-up to confirm resolution as neoplasm could have a similar appearance Assessment and Plan (1) Diverticulitis Current visit: Yes Status: Acute Category: Medical Code(s): K57.92 - Diverticulitis of intestine, part unspecified, without perforation or abscess without bleeding (2) Renal insufficiency Current visit: Yes Status: Acute Category: Medical Code(s): N28.9 - Disorder of kidney and ureter, unspecified (3) Elevated lipase Current visit: Yes Status: Acute Category: Medical Code(s): R74.8 - Abnormal levels of other serum enzymes (4) Type 2 diabetes mellitus Current visit: Yes Status: Chronic Category: Medical Code(s): E11.9 - Type 2 diabetes mellitus without complications (5) Hypertension Current visit: Yes Status: Chronic Category: Medical Code(s): I10 - Essential (primary) hypertension - Assessment and plan all Dx Assessment and Plan for all problems:: Patient has been started on some of her home medications along with Levaquin and Flagyl. Will continue antibiotics, IV fluids, and pain management. Patient states she is thirsty this morning so we will start on a clear liquid diet. Will repeat labs tomorrow.
[2018-09-14 05:56] LABS: Basophils % 0.6 % (0.1-2.0); Eosinophils # 0.1 K/mm3 (0.0-0.4); Eosinophils % 2.4 % (0.1-12.0); Hematocrit 36.8 % (37.0-47.0); Hemoglobin 12.1 g/dL (12.2-16.2); Lymphocytes # 1.5 K/mm3 (0.7-4.5); Lymphocytes % 33.9 % (10-50); Mean Corpuscular HGB Conc 32.9 g/dL (31.8-35.4); Mean Corpuscular Hemoglobin 28.2 pg (27.0-31.2); Mean Corpuscular Volume 85.7 fl (81-99); Mean Platelet Volume 7.9 fl (7.4-10.4); Monocytes # 0.4 K/mm3 (0.1-1.0); Monocytes % 8.5 % (1.7-9.3); Neutrophils # 2.4 K/mm3 (1.8-7.8); Neutrophils % 54.5 % (37.0-80.0); Platelet Count 175 K/mm3 (142-424); Red Cell Distribution Width 13.1 % (11.5-17.5); White Blood Count 4.4 K/mm3 (4.8-10.8)
[2018-09-14 06:10] LABS: Albumin Level 3.2 gm/dL (3.4-5.0); Albumin/Globulin Ratio 1.1 (1.1-1.8); Anion Gap 12.1 mEq/L (5-15); Bilirubin,Total 0.4 mg/dL (0.2-1.0); Globulin 2.9 gm/dl (1.3-3.2); Potassium 4.1 mmoL/L (3.5-5.1); Total Protein,Serum 6.1 gm/dL (6.4-8.2)
[2018-09-14 06:14] LABS: Calcium 8.6 mg/dL (8.5-10.1)
--- NOTE | 2018-09-14 09:09 | Progress Note ---
Internal Medicine - PN: Subj *Date: 09/14/18 *Time: 09:07 Interval history: The patient still has some left lower quadrant discomfort. Otherwise she is stable. Her white blood cell count has decreased. She is afebrile. She wants to eat. She is on clear liquids. I will advance her to full liquids. Exam Vital signs and Labs for Last 24 Hours: Temp Pulse Resp BP Pulse Ox 98.0 F 82 17 162/66 H 93 L 09/14/18 08:00 09/14/18 08:00 09/14/18 08:00 09/14/18 08:00 09/14/18 08:00 Laboratory Results - last 24 hr 09/13/18 03:30: Urine Color Yellow, Urine Appearance Clear, Urine pH 6.0, Ur Specific [place] 1.020, Urine Protein Negative, Urine Glucose (UA) Negative, Urine Ketones Negative, Urine Blood Negative, Urine Nitrate Negative, Urine Bilirubin Negative, Urine Urobilinogen 1.0, Ur Leukocyte Esterase 1+ A, Urine WBC 5-10, Ur Squamous Epith Cells 3-5, Urine Bacteria 1+ 09/13/18 11:00: POC Glucose 212 H 09/13/18 16:33: POC Glucose 109 09/13/18 20:22: POC Glucose 129 H 09/14/18 05:35: WBC 4.4 L D, RBC 4.30, Hgb 12.1 L, Hct 36.8 L, MCV 85.7, MCH 28.2, MCHC 32.9, RDW 13.1, Plt Count 175 D, MPV 7.9, Neut % (Auto) 54.5, Lymph % (Auto) 33.9, [place] % (Auto) 8.5, Eos % (Auto) 2.4, Baso % (Auto) 0.6, Neut # (Auto) 2.4, Lymph # (Auto) 1.5, [place] # (Auto) 0.4, Eos # (Auto) 0.1, Baso # (Auto) 0.0 09/14/18 05:35: Sodium 142, Potassium 4.1, Chloride 107, Carbon Dioxide 27, Anion Gap 12.1, BUN 16 D, Creatinine 0.94, Estimated Creat Clear 85, Estimated GFR 60, Est GFR ( Amer) 73, Glucose 138 H, Calcium 8.6 D, Total Bilirubin 0.4, AST 16, ALT 31, Alkaline Phosphatase 53, Total Protein 6.1 L, Albumin 3.2 L D, Globulin 2.9, Albumin/Globulin Ratio 1.1, Amylase 43, Lipase 169 I & O for Last 24 hours: Intake & Output 09/11/18 09/12/18 09/13/18 09/14/18 11:59 11:59 11:59 11:59 Intake Total 1100 / 1100 5586 / 5586 Balance 1100 / 1100 5586 / 5586 Weight 203 lb 3 oz 203 lb 2.989 oz Microbiology Reports for the Last 24 Hours: Microbiology 09/13/18 03:30 Urine,Clean Catch Urine Culture - Preliminary Gram Negative Rods - Constitutional no acute distress - *Routine HEENT Exam Head: Present: normocephalic Eye: Present: PERRL ENT: Present: mucous membranes moist - *Routine Respiratory Exam Present: CTA bilaterally - *Routine Cardiovascular Exam Present: RRR - *Routine Abdominal Exam Present: soft, tenderness (LLQ) - *Routine Extremities Exam Comments: MAXIMUS's - *Routine Neurological Exam Present: alert, oriented X3 Assessment and Plan (1) Diverticulitis Current visit: Yes Status: Acute Category: Medical Code(s): K57.92 - Diverticulitis of intestine, part unspecified, without perforation or abscess without bleeding (2) Renal insufficiency Current visit: Yes Status: Acute Category: Medical Code(s): N28.9 - Disorder of kidney and ureter, unspecified (3) Elevated lipase Current visit: Yes Status: Acute Category: Medical Code(s): R74.8 - Abnormal levels of other serum enzymes (4) Type 2 diabetes mellitus Current visit: Yes Status: Chronic Category: Medical Code(s): E11.9 - Type 2 diabetes mellitus without complications (5) Hypertension Current visit: Yes Status: Chronic Category: Medical Code(s): I10 - Essential (primary) hypertension - Assessment and plan all Dx Assessment and Plan for all problems:: Decrease IV fluids. Full liquid diet.
[2018-09-15 05:51] LABS: Basophils % 0.5 % (0.1-2.0); Eosinophils # 0.1 K/mm3 (0.0-0.4); Eosinophils % 1.9 % (0.1-12.0); Hematocrit 40.2 % (37.0-47.0); Lymphocytes # 1.7 K/mm3 (0.7-4.5); Lymphocytes % 30.2 % (10-50); Mean Corpuscular HGB Conc 32.4 g/dL (31.8-35.4); Mean Corpuscular Hemoglobin 27.2 pg (27.0-31.2); Mean Platelet Volume 7.9 fl (7.4-10.4); Monocytes # 0.4 K/mm3 (0.1-1.0); Monocytes % 6.6 % (1.7-9.3); Neutrophils # 3.4 K/mm3 (1.8-7.8); Neutrophils % 60.8 % (37.0-80.0); Platelet Count 203 K/mm3 (142-424); Red Blood Count 4.79 M/mm3 (4.20-5.40); Red Cell Distribution Width 13.1 % (11.5-17.5); White Blood Count 5.6 K/mm3 (4.8-10.8)
[2018-09-15 06:04] LABS: Anion Gap 12.8 mEq/L (5-15); Calcium 9.1 mg/dL (8.5-10.1); Potassium 3.8 mmoL/L (3.5-5.1)
--- NOTE | 2018-09-15 12:34 | Progress Note ---
Internal Medicine - PN: Subj *Date: 09/15/18 *Time: 12:32 Interval history: She is feeling much better. She is hungry. She is still on full liquids. She still has some tenderness of the left lower quadrant. She has been up in the chair. Her vital signs are normal. Her labs are good. Exam Vital signs and Labs for Last 24 Hours: Temp Pulse Resp BP Pulse Ox 97.7 F 62 18 169/78 H 94 L 09/15/18 08:00 09/15/18 08:00 09/15/18 08:00 09/15/18 08:00 09/15/18 08:00 Laboratory Results - last 24 hr 09/14/18 06:15: POC Glucose 138 H 09/14/18 11:44: POC Glucose 144 H 09/14/18 16:19: POC Glucose 120 H 09/14/18 20:01: POC Glucose 152 H 09/15/18 05:25: WBC 5.6 D, RBC 4.79, Hgb 13.0, Hct 40.2, MCV 84.0, MCH 27.2, MCHC 32.4, RDW 13.1, Plt Count 203, MPV 7.9, Neut % (Auto) 60.8, Lymph % (Auto) 30.2, [place] % (Auto) 6.6, Eos % (Auto) 1.9, Baso % (Auto) 0.5, Neut # (Auto) 3.4, Lymph # (Auto) 1.7, [place] # (Auto) 0.4, Eos # (Auto) 0.1, Baso # (Auto) 0.0 09/15/18 05:25: Sodium 144, Potassium 3.8, Chloride 107, Carbon Dioxide 28, Anion Gap 12.8, BUN 8 D, Creatinine 0.93, Estimated Creat Clear 84, Estimated GFR 61, Est GFR ( Amer) 74, Glucose 174 H D, Calcium 9.1 09/15/18 05:41: POC Glucose 150 H 09/15/18 11:26: POC Glucose 130 H I & O for Last 24 hours: Intake & Output 09/13/18 09/14/18 09/15/18 09/16/18 11:59 11:59 11:59 11:59 Intake Total 1100 / 1100 5786 / 5786 3942 / 3942 Output Total 3400 / 3400 Balance 1100 / 1100 5786 / 5786 542 / 542 Weight 203 lb 3 oz 210 lb 4 oz 200 lb 5 oz Microbiology Reports for the Last 24 Hours: Microbiology 09/13/18 03:30 Urine,Clean Catch Urine Culture - Final Klebsiella pneumoniae - Constitutional no acute distress - *Routine HEENT Exam Head: Present: normocephalic ENT: Present: mucous membranes moist - *Routine Neck Exam Present: supple - *Routine Respiratory Exam Present: CTA bilaterally - *Routine Cardiovascular Exam Present: RRR - *Routine Abdominal Exam Present: soft, tenderness (Slight tenderness left lower quadrant). Absent: mass - *Routine Extremities Exam Comments: MAXIMUS stockings - *Routine Neurological Exam Present: alert, oriented X3 - Routine Psychiatric Exam Present: normal affect Comments: Pleasant Assessment and Plan (1) Diverticulitis Current visit: Yes Status: Acute Category: Medical Code(s): K57.92 - Diverticulitis of intestine, part unspecified, without perforation or abscess without bleeding (2) Renal insufficiency Current visit: Yes Status: Acute Category: Medical Code(s): N28.9 - Disorder of kidney and ureter, unspecified (3) Elevated lipase Current visit: Yes Status: Acute Category: Medical Code(s): R74.8 - Abnormal levels of other serum enzymes (4) Type 2 diabetes mellitus Current visit: Yes Status: Chronic Category: Medical Code(s): E11.9 - Type 2 diabetes mellitus without complications (5) Hypertension Current visit: Yes Status: Chronic Category: Medical Code(s): I10 - Essential (primary) hypertension - Assessment and plan all Dx Assessment and Plan for all problems:: Saline lock. Advance diet. Anticipate discharge tomorrow.
[2018-09-16 07:46] VITALS: BP 170/76
--- NOTE | 2018-09-16 07:49 | Progress Note ---
Internal Medicine - PN: Subj *Date: 09/16/18 *Time: 07:48 Exam Vital signs and Labs for Last 24 Hours: Temp Pulse Resp BP Pulse Ox 97.9 F 55 L 18 170/76 H 95 09/16/18 07:45 09/16/18 07:45 09/16/18 07:45 09/16/18 07:45 09/16/18 07:45 Laboratory Results - last 24 hr 09/15/18 11:26: POC Glucose 130 H 09/15/18 17:10: POC Glucose 120 H 09/15/18 21:06: POC Glucose 134 H 09/16/18 06:19: POC Glucose 136 H I & O for Last 24 hours: Intake & Output 09/13/18 09/14/18 09/15/18 09/16/18 23:59 23:59 23:59 23:59 Intake Total 3745 / 3745 5201 / 5201 2966 / 2966 820 / 820 Output Total 3700 / 3700 Balance 3745 / 3745 5201 / 5201 -734 / -734 820 / 820 Weight 92.164 kg 95.368 kg 90.86 kg 92.136 kg Microbiology Reports for the Last 24 Hours: Microbiology 09/13/18 03:30 Urine,Clean Catch Urine Culture - Final Klebsiella pneumoniae Assessment and Plan (1) Diverticulitis Current visit: Yes Status: Acute Category: Medical Code(s): K57.92 - Diver ticulitis of intestine, part unspecified, without perforation or abscess without bleeding (2) Renal insufficiency Current visit: Yes Status: Acute Category: Medical Code(s): N28.9 - Disorder of kidney and ureter, unspecified (3) Elevated lipase Current visit: Yes Status: Acute Category: Medical Code(s): R74.8 - Abnormal levels of other serum enzymes (4) Type 2 diabetes mellitus Current visit: Yes Status: Chronic Category: Medical Code(s): E11.9 - Type 2 diabetes mellitus without complications (5) Hypertension Current visit: Yes Status: Chronic Category: Medical Code(s): I10 - Essential (primary) hypertension The patient's infection will respond to the chosen ABx?: Yes Is the patient receiving the right drug, dose, and route?: Yes Could a more targeted ABx be ordered?: No (KLEBSIELLA SENSITIVE TO LEVAQUIN)
--- NOTE | 2018-09-16 08:05 | Progress Note ---
Internal Medicine - PN: Subj *Date: 09/16/18 *Time: 08:02 Interval history: Patient is ready to go home. She feels so much better. She has some mild left lower quadrant discomfort at times. Bowels moved normally yesterday. She ate food yesterday and this morning without problems. She is voiding QS. Patient is concerned about her blood pressure. She will continue to monitor at home. Reviewed low salt, 2000 mg, diet with her. Urine culture positive with Klebsiella pneumoniae sensitive to the Levaquin which patient is on Exam Vital signs and Labs for Last 24 Hours: Temp Pulse Resp BP Pulse Ox 97.9 F 55 L 18 170/76 H 95 09/16/18 07:45 09/16/18 07:45 09/16/18 07:45 09/16/18 07:45 09/16/18 07:45 Laboratory Results - last 24 hr 09/15/18 11:26: POC Glucose 130 H 09/15/18 17:10: POC Glucose 120 H 09/15/18 21:06: POC Glucose 134 H 09/16/18 06:19: POC Glucose 136 H I & O for Last 24 hours: Intake & Output 09/13/18 09/14/18 09/15/18 09/16/18 11:59 11:59 11:59 11:59 Intake Total 1100 / 1100 5786 / 5786 4042 / 4042 1804 / 1804 Output Total 3400 / 3400 300 / 300 Balance 1100 / 1100 5786 / 5786 642 / 642 1504 / 1504 Weight 203 lb 3 oz 210 lb 4 oz 200 lb 5 oz 203 lb 2 oz Microbiology Reports for the Last 24 Hours: Microbiology 09/13/18 03:30 Urine,Clean Catch Urine Culture - Final Klebsiella pneumoniae - Constitutional no acute distress Comments: Sitting up in the bed and appears comfortable - *Routine Respiratory Exam Present: CTA bilaterally (Anteriorly and posteriorly) - *Routine Cardiovascular Exam Present: RRR - *Routine Abdominal Exam Present: soft, normoactive bowel sounds Comments: Mild tenderness in left lower quadrant - *Routine Extremities Exam Absent: edema, calf tenderness - *Routine Neurological Exam Present: alert, oriented X3 Assessment and Plan (1) Diverticulitis Current visit: Yes Status: Acute Category: Medical Code(s): K57.92 - Diverticulitis of intestine, part unspecified, without perforation or abscess without bleeding (2) Renal insufficiency Current visit: Yes Status: Acute Category: Medical Code(s): N28.9 - Disorder of kidney and ureter, unspecified (3) Elevated lipase Current visit: Yes Status: Acute Category: Medical Code(s): R74.8 - Abnormal levels of other serum enzymes (4) Type 2 diabetes mellitus Current visit: Yes Status: Chronic Category: Medical Code(s): E11.9 - Type 2 diabetes mellitus without complications (5) Hypertension Current visit: Yes Status: Chronic Category: Medical Code(s): I10 - Essential (primary) hypertension (6) Urinary tract infection due to Klebsiella species Current visit: Yes Status: Acute Category: Medical Code(s): N39.0 - Urinary tract infection, site not specified; B96.1 - Klebsiella pneumoniae [K. pneumoniae] as the cause of diseases classified elsewhere - Assessment and plan all Dx Assessment and Plan for all problems:: Patient will go home today on metronidazole and Levaquin with follow-up in [facility]. Instructed on low-sodium diet. She will continue to monitor blood pressure at home and also continue with home blood pressure medicines.
--- NOTE | 2018-09-17 12:55 | Discharge Summary ---
General - General Admission date:: 09/13/18 Discharge date: 09/16/18 HPI HPI: Ms. Cano is a 62-year-old female with a history of diabetes, hypertension, hyperlipidemia, and history of diverticulosis with an episode of diverticulitis approximately 6 years ago. She states on Sunday she began having left lower quadrant pain and felt constipated. The pain continued to worsen, thus she presented to the emergency room for evaluation. She was found to have a diverticulitis on CT scan and was admitted for pain management and IV antibiotics. Hospital Course Hospital Course: The patient's CT showed thickening of the descending colon consistent with diverticulitis. She was started on Levaquin and Flagyl along with IV fluids and pain management. She was started on a liquid diet and tolerated this, therefore it was advanced. Of note she had an EGD and colonoscopy [place] [address] Whitfield. The patient's abdominal pain improved and her bowels began moving. Her WBC normalized. Her blood pressure was elevated, therefore her carvedilol was increased to 2 pills in the morning and 1 at night. She was encouraged to remain on a low-sodium diet. Her urine culture was positive for Klebsiella pneumonia which was sensitive to the Levaquin she was already taking. She was stable to be discharged home on Flagyl and Levaquin and will follow-up in the office of [facility]. Objective Vital signs: Temp Pulse Resp BP Pulse Ox 97.9 F 55 L 18 170/76 H 95 09/16/18 07:45 09/16/18 07:45 09/16/18 07:45 09/16/18 07:45 09/16/18 07:45 Narrative: - Constitutional no acute distress - *Routine HEENT Exam Head: Present: normocephalic Eye: Present: EOMI, PERRL ENT: Present: mucous membranes dry - *Routine Neck Exam Present: supple. Absent: lymphadenopathy - *Routine Respiratory Exam Present: CTA bilaterally - *Routine Cardiovascular Exam Present: RRR - *Routine Abdominal Exam Present: soft, normoactive bowel sounds, tenderness (LLQ) - *Routine Extremities Exam Absent: cyanosis, clubbing, edema - *Routine Skin Exam Present: warm. Absent: rash - *Routine Neurological Exam Present: alert, oriented X3 DS: Diagnosis - Discharge Diagnosis (1) Diverticulitis Status: Acute (2) Renal insufficiency Status: Acute (3) Elevated lipase Status: Acute (4) Type 2 diabetes mellitus Status: Chronic (5) Hypertension Status: Chronic (6) Urinary tract infection due to Klebsiella species Status: Acute Discharge Plan - Patient Discharge Instructions ACTIVITY: Continue current activity DIET: continue same diet Additional Instructions: 2 carvedilol in morning and 1 in the evening. follow up with md eat low sodium foods avoid foods that trigger diverticulitis Patient Instructions: Kidney Failure, Diverticulitis, Low-Fiber/Low-Residue Diet, DI for Diverticulitis, DI for Urinary Tract Infection (UTI) - Follow up Plan Disposition: Home, Self-Jail Medications: Home Medications Medication Instructions Recorded Confirmed Type duloxetine 60 mg capsule,delayed 60 mg PO DAILY 30 Days #30 09/05/17 09/13/18 History release fenofibric acid (choline) 135 mg 135 mg PO DAILY 30 Days #30 09/05/17 09/13/18 History capsule,delayed release levothyroxine 88 mcg tablet 88 mcg PO DAILY 90 Days #90 09/05/17 09/13/18 History losartan 100 1 tab PO DAILY 90 Days #90 09/05/17 09/13/18 History mg-hydrochlorothiazide 12.5 mg tablet Furosemide [Furosemide 20mg Tab] 20 mg PO DAILY 09/13/18 09/13/18 History Gabapentin [Gabapentin 100mg Cap] 100 mg PO NEEDED PRN 09/13/18 09/13/18 His tory Metformin HCl 1,000 mg PO BID 09/13/18 09/13/18 History Montelukast Sodium [Montelukast 10 mg PO HS 09/13/18 09/13/18 History 10mg Tab] Carvedilol [Carvedilol 6.25mg Tab] 6.25 mg PO TID #90 tablet 09/16/18 Rx levoFLOXacin [Levaquin 500mg 500 mg PO DAILY #5 tablet 09/16/18 Rx tab] metroNIDAZOLE [metroNIDAZOLE 500mg 500 mg PO TID #15 tab 09/16/18 Rx Tablet] Prescriptions/Medication Reconciliation: New metroNIDAZOLE [metroNIDAZOLE 500mg Tablet] 500 mg PO TID #15 tab levoFLOXacin [Levaquin 500mg tab] 500 mg PO DAILY #5 tablet Continue duloxetine 60 mg capsule,delayed release 60 mg PO DAILY 30 Days #30 losartan 100 mg-hydrochlorothiazide 12.5 mg tablet 1 tab PO DAILY 90 Days #90 levothyroxine 88 mcg tablet 88 mcg PO DAILY 90 Days #90 fenofibric acid (choline) 135 mg capsule,delayed release 135 mg PO DAILY 30 Days #30 Furosemide [Furosemide 20mg Tab] 20 mg PO DAILY Montelukast Sodium [Montelukast 10mg Tab] 10 mg PO HS Metformin HCl 1,000 mg PO BID Gabapentin [Gabapentin 100mg Cap] 100 mg PO NEEDED PRN PRN Reason: BACK PAIN Changed Carvedilol [Carvedilol 6.25mg Tab] 6.25 mg PO TID #90 tablet
== END 2018-09-16 11:12 | disposition home or self-care (01) | DRG 392 ==
LOC: ER 03:00 → 2ND 05:46
PROVIDERS: ADMIT Emergency Medicine; ATTEND Family Medicine
CPT/HCPCS: 36415; 74177; 80048; 80053; 81001; 82150; 82962; 83690; 85025; 85651; 86140; 87086; 87088; 87186; 96365; 96367; 96375; 99284; J1956; J2405; Q9967

== ENCOUNTER → 2018-09-27 10:35 | Outpatient (CLI) | payer MEDICARE, SELFPAY ==
--- NOTE | 2018-09-27 10:41 | US_ITS ---
US thyroid HISTORY: Follow-up thyroid nodule ITS.REASON: THYROID NODULE ORDERING PHYSICIAN: Christiano Mendieta MD PATIENT AGE: 62 years Comparison: 06/19/2017 FINDINGS: Right lobe: Status post surgical removal Left lobe: The left lobe measures 1.8 x 1.9 x 1.7 cm. There is an ill-defined isoechoic nodular area with medial cystic component in the mid polar region at 15 x 15 mm. This is probably unchanged given differences in scanning technique. The nodule may not actually be this large. Calcification present in the mid polar region at 4 mm unchanged. IMPRESSION: Overall no change in the ill-defined isoechoic area in the mid polar region on the left area no new nodules evident.
[2018-09-27 13:22] LABS: Free T4 (Free Thyroxine) 1.33 ng/dl (0.76-1.46)
== END ==
PROVIDERS: PCP Family Medicine; Visit Provider Otolaryngology
DX: E03.0 Congenital hypothyroidism with diffuse goiter (principal); D34 Benign neoplasm of thyroid gland
CPT/HCPCS: 36415; 76536; 84439; 84443

== ENCOUNTER → 2018-10-23 10:05 | Outpatient (CLI) | payer MEDICARE, SELFPAY ==
[2018-10-23 10:50] VITALS: PULSE 59; PULSE 62
== END ==
PROVIDERS: PCP Physician Assistant; Visit Provider Physician Assistant
DX: R06.02 Shortness of breath (principal)
CPT/HCPCS: 94060; 94640; 94726; 94729

== ENCOUNTER 2018-12-02 11:59 | Observation (INO) ==
[2018-12-02 13:11] LABS: Basophils # 0.1 K/mm3 (0-0.2); Basophils % 0.6 % (0.1-2.0); Eosinophils # 0.1 K/mm3 (0.0-0.4); Eosinophils % 1.5 % (0.1-12.0); Hematocrit 43.7 % (37.0-47.0); Hemoglobin 14.1 g/dL (12.2-16.2); Lymphocytes # 1.8 K/mm3 (0.7-4.5); Lymphocytes % 25.2 % (10-50); Mean Corpuscular HGB Conc 32.2 g/dL (31.8-35.4); Mean Corpuscular Volume 83.6 fl (81-99); Mean Platelet Volume 8.3 fl (7.4-10.4); Monocytes # 0.5 K/mm3 (0.1-1.0); Monocytes % 6.9 % (1.7-9.3); Neutrophils # 4.6 K/mm3 (1.8-7.8); Neutrophils % 65.8 % (37.0-80.0); Platelet Count 206 K/mm3 (142-424); Red Blood Count 5.24 M/mm3 (4.20-5.40); Red Cell Distribution Width 13.1 % (11.5-17.5)
[2018-12-02 13:15] LABS: Albumin/Globulin Ratio 1.1 (1.1-1.8); Anion Gap 12.4 mEq/L (5-15); Bilirubin,Total 0.6 mg/dL (0.2-1.0); Calcium 9.3 mg/dL (8.5-10.1); Globulin 3.5 gm/dl (1.3-3.2); Total Protein,Serum 7.5 gm/dL (6.4-8.2)
--- NOTE | 2018-12-02 13:21 | Pharmacy Consult Notes ---
[facility] Pharmacy VTE Monitoring - Patient Demographics Admission date: 12/02/18 Report Date: 12/02/18 Time: 13:21 Allergies/Adverse Reactions: Patient Allergies morphine [MORPHINE] Allergy (Unknown, Verified 09/13/18 03:04) GI UPSET Sulfa (Sulfonamide Antibiotics) [SULFA (SULFONAMIDE ANTIBIOTICS)] Allergy (Unknown, Verified 09/13/18 03:04) SWELLING sulfamethoxazole [From BACTRIM] Allergy (Unknown, Verified 09/13/18 03:04) SWELLING trimethoprim [From BACTRIM] Allergy (Unknown, Verified 09/13/18 03:04) SWELLING Height: 1.7 m Weight: 88.904 kg - VTE Risk Labs: VTE Related Lab Results Hgb 14.1 g/dL (12.2-16.2) 12/02/18 12:55 Hct 43.7 % (37.0-47.0) 12/02/18 12:55 Plt Count 206 K/mm3 (142-424) 12/02/18 12:55 BUN 17 mg/dL (7-18) 12/02/18 12:55 Creatinine 0.90 mg/dL (0.55-1.02) 12/02/18 12:55 Estimated Creat Clear 81 mL/min (50-200) 12/02/18 12:55 Was VTE Risk Assessment Performed: No VTE Score: 2 VTE Risk Level: Very Low Risk - Prophylaxis VTE Prophylaxis Ordered?: Yes Types of VTE Prophylaxis: TEDS Knee High Location of Applied Device: Bilateral Lower Extremeties - VTE Diagnosis Confirmed Treatment or plan recommended: Continue Current Treatment
[2018-12-02 14:48] LABS: Microscopic, Urine URINE MICROSCOPIC (MICROSCOPIC)
[2018-12-02 14:50] LABS: Appearance,Urine CLEAR (Clear); Bilirubin,Urine Negative (Negative); Blood, Urine Negative (Negative); Color,Urine YELLOW (Yellow); Glucose,Urine (UA) Negative (Negative); Ketones,Urine Negative (Negative); Leukocyte Esterase,Urine 1+ (Negative); Protein,Urine Negative (Negative); Specific Gravity, Urine <= 1.005 (1.005-1.030); Urobilinogen,Urine 0.2 EU/dl (0.2)
--- NOTE | 2018-12-02 14:54 | History & Physical Report ---
*Admission Date: 12/02/18 *Chief complaint: Acute abdominal pain *History of present illness: Ms. Cano is a 63-year-old female with a history of diabetes mellitus, hypertension, migraine headaches, scoliosis, bicuspid aortic valve, diverticulosis who presented to the office [facility] after expe riencing worsening severe left lower quadrant abdominal pain radiating into the groin associated with nausea with and without food, abdominal distention, belching and constipation. She states the pain has been unbearable. She has not vomited as yet. She has been able to retain food and fluids. She denies fever and upper respiratory signs and symptoms. She has had this in the past and was hospitalized in August of this year with the same. With exam in the office the patient was extremely tender in her left mid and lower quadrants. She was also seen by Dr. Johansen and the decision was made to admit her to [facility] for further evaluation and treatment with CT of the abdomen, pain and nausea management and IV abx. She will be started on Flagyl and Levaquin for probable diverticulitis. UA was positive and will be repeated while hospitalized. [facility] History Medical History: Reports:: Congestive Heart Failure, Depression, Diabetes Mellitus Type 2, Hyperlipidemia, Hypertension, Kidney Stones Denies:: Cancer, Diabetes Mellitus Type 1, MRSA *Have you ever received a pneumonia vaccine?: Yes *Have you received a flu vaccine this season?: No Other Medical History: Reports: Arthritis, Thyroid Disease, Other (Diverticulosis/Diverticulitis) Laterality Cases: Bilateral: Tonsillectomy Other Surgeries: Yes: Appendectomy, Cardiac Catheterization, Cholecystectomy, Colonoscopy, EGD, Hernia Repair, Hysterectomy-Total, Thyroidectomy, Tubal Ligation, Other (Back surgery) Amputation: No Fractures: No - *Social History Smoking Status: Never smoker Alcohol Intake: never Alcohol Intake Frequency:: other Substance Use Type: denies use *Occupational Status:: retired Housing: house Household Members: spouse *Travel in the last 8 weeks: None - Psychiatric History Expresses thoughts of harming self/others: None Suicide Plan Description: No Plan Pschychiatric History:: Reports:: Depression Family Hx:: Cancer, Diabetes, Hyperlipidemia Review of Systems - Constitutional Denies fever(s), Denies headache(s) - Eyes Denies change in vision - ENT Denies ear pain, Denies sore throat - *Cardiovascular Reports leg swelling, Denies chest pain, Denies shortness of breath - *Respiratory Denies chest congestion, Denies cough, Denies shortness of breath - *Gastrointestinal Reports abdominal pain, Reports belching, Reports bloating, Reports change in bowel habits, Reports constipation, Reports heartburn, Reports nausea, Denies vomiting blood, Denies bright, red blood in stools, Denies black, tarry stools, Denies vomiting - *Genitourinary Denies difficulty urinating, Denies painful urination, Denies blood in urine - *Musculoskeletal Reports back pain - *Neurologic Denies abnormal walking, Denies confusion, Denies frequent falls, Denies headache(s) Meds Home Medications Medication Instructions Recorded Confirmed Type duloxetine 60 mg capsule,delayed 60 mg PO DAILY 30 Days #30 09/05/17 12/02/18 History release fenofibric acid (choline) 135 mg 135 mg PO DAILY 30 Days #30 09/05/17 12/02/18 History capsule,delayed release levothyroxine 88 mcg tablet 88 mcg PO DAILY 90 Days #90 09/05/17 12/02/18 History losartan 100 1 tab PO DAILY 90 Days #90 09/05/17 12/02/18 History mg-hydrochlorothiazide 12.5 mg tablet Furosemide [Furosemide 20mg Tab] 20 mg PO DAILY 09/13/18 12/02/18 History Gabapentin [Gabapentin 100mg Cap] 100 mg PO NEEDED PRN 09/13/18 12/02/18 History Metformin HCl 1,000 mg PO BID 09/13/18 12/02/18 History Montelukast Sodium [Montelukast 10 mg PO HS 09/13/18 12/02/18 History 10mg Tab] Carvedilol [Carvedilol 6.25mg Tab] 6.25 mg PO BID 12/02/18 12/02/18 History Allergies Allergy/AdvReac Type Severity Reaction Status Date / Time morphine [MORPHINE] Allergy Unknown GI UPSET Verified 09/13/18 03:04 Sulfa (Sulfonamide Allergy Unknown SWELLING Verified 09/13/18 03:04 Antibiotics) [SULFA (SULFONAMIDE ANTIBIOTICS)] sulfamethoxazole Allergy Unknown SWELLING Verified 09/13/18 03:04 [From BACTRIM] trimethoprim [From BACTRIM] Allergy Unknown SWELLING Verified 09/13/18 03:04 Exam Vital signs and Labs for Last 24 Hours: Temp Pulse Resp BP Pulse Ox 97.9 F 54 L 18 140/57 L 93 L 12/02/18 12:13 12/02/18 12:13 12/02/18 12:13 12/02/18 12:13 12/02/18 13:46 Laboratory Results - last 24 hr 12/02/18 12:55: WBC 7.0, RBC 5.24, Hgb 14.1, Hct 43.7, MCV 83.6, MCH 26.9 L, MCHC 32.2, RDW 13.1, Plt Count 206, MPV 8.3, Neut % (Auto) 65.8, Lymph % (Auto) 25.2, [place] % (Auto) 6.9, Eos % (Auto) 1.5, Baso % (Auto) 0.6, Neut # (Auto) 4.6, Lymph # (Auto) 1.8, [place] # (Auto) 0.5, Eos # (Auto) 0.1, Baso # (Auto) 0.1 12/02/18 12:55: Sodium 141, Potassium 3.4 L, Chloride 104, Carbon Dioxide 28, Anion Gap 12.4, BUN 17, Creatinine 0.90, Estimated Creat Clear 81, Estimated GFR 63, Est GFR ( Amer) 77, Glucose 131 H, Calcium 9.3, Total Bilirubin 0.6, AST 16, ALT 31, Alkaline Phosphatase 66, Total Protein 7.5, Albumin 4.0, Globulin 3.5 H, Albumin/Globulin Ratio 1.1 12/02/18 14:45: Urine Color Yellow, Urine Appearance Clear, Urine pH 7.0, Ur Specific [place] <= 1.005, Urine Protein Negative, Urine Glucose (UA) Negative, Urine Ketones Negative, Urine Blood Negative, Urine Nitrate Negative, Urine Bilirubin Negative, Urine Urobilinogen 0.2, Ur Leukocyte Esterase 1+ A I & O for Last 24 hours: Intake & Output 11/30/18 12/01/18 12/02/18 12/03/18 11:59 11:59 11:59 11:59 Intake Total 105 / 105 Balance 105 / 105 Weight 196 lb - Constitutional no acute distress Comments: She appears to be uncomfortable - *Routine HEENT Exam Head: Present: normocephalic, atraumatic Eye: Present: PERRL. Absent: conjunctival icterus, scleral injection ENT: Present: mucous membranes moist, oropharynx clear - *Routine Neck Exam Present: supple, thyromegaly. Absent: carotid bruit, lymphadenopathy - *Routine Respiratory Exam Comments: Few bibasilar crackles - *Routine Cardiovascular Exam Present: RRR - *Routine Abdominal Exam Present: normoactive bowel sounds, tenderness (In all lower quadrants in mid left quadrant. Some referred tenderness.), distended, guarding - *Routine Extremities Exam Absent: edema, calf tenderness - Routine Back/Spine/Pelvis Exam Back/Spine: Present: scoliosis - *Routine Neurological Exam Present: alert, oriented X3 Assessment and Plan (1) Acute abdominal pain Current visit: Yes Status: Acute Category: Medical Code(s): R10.9 - Unspecified abdominal pain (2) Urinary tract infection Current visit: Yes Status: Acute Category: Medical Code(s): N39.0 - Urinary tract infection, site not specified (3) Diverticulitis Current visit: No Status: Acute Category: Medical Code(s): K57.92 - Diverticulitis of intestine, part unspecified, without perforation or abscess without bleeding (4) Type 2 diabetes mellitus Current visit: No Status: Chronic Category: Medical Code(s): E11.9 - Type 2 diabetes mellitus without complications (5) Urinary tract infection Current visit: Yes Status: Acute Category: Medical Code(s): N39.0 - Urinary tract infection, site not specified - Assessment and plan all Dx Assessment and Plan for all problems:: GI rest with clear liquids; IV fluids; antibiotics; pain and nausea management
[2018-12-02 14:59] LABS: Bacteria,Urine 2+ /lpf; Squamous Epithelial Cell,Urine Occasional #/hpf (0-5)
--- NOTE | 2018-12-02 15:56 | Procedure Note ---
[facility] Procedure Note Procedure Note:: Gastroenterology Consultation Date of Service-December 02, 2018 History of Present Illness: Mrs. Cano is a 63-year-old female who is here for recurrent presumptive diverticulitis with left lower quadrant abdominal pain that began yesterday. The patient had a bout of diverticulitis in August 2018. Prior to this it had been several years. The patient did have a colonoscopy with me in 2016 (report not presently available). On admission, the patient had no fever (temperature 97.9) and normal white blood cell count (7.0). The patient does state that she is compliant with dietary measures and fiber bowel regimen (MiraLAX plus Citrucel taken daily). Sometimes she will take the fiber regimen every other day so that she will not get diarrhea. She does state that since starting her new blood pressure medication and Lasix, she has had more constipation and has increased the fiber bowel regimen to daily. The patient was admitted today and CAT scan is pending. Past Medical History: 1. Type 2 diabetes mellitus 2. Hypertension 3. Hypothyroidism 4. Osteoarthritis Past Surgical History: 1. Thyroidectomy 2. Multiple back surgeries 3. Laparoscopic cholecystectomy 4. Total abdominal hysterectomy and bilateral salpingo-oophorectomy 5. Appendectomy 6. Tonsillectomy and adenoidectomy Medications: 1. Carvedilol 2. Losartan 3. Lasix 4. Metformin 5. Synthroid 6. Gabapentin 7. Duloxetine 8. Choline 9. Montelukast ALLERGIES: Sulfa drugs. Morphine sulfate results in nausea Social History: The patient is and lives in [facility]. She reports no alcohol or tobacco. She has 1 child Family History: Noncontributory Review of Systems: See chart Physical Exam: Physical Examination: Gen.: The patient is a well-developed well-nourished individual in no acute distress HEENT: Normocephalic/atraumatic extraocular movements are intact anicteric Neck: Supple no lymphadenopathy Chest: Clear to auscultation Cardiovascular: Regular rate and rhythm Abdomen: Normoactive bowel sounds tenderness in the left lower quadrant without rebound or guarding, nondistended, no hepatosplenomegaly Extremities: No edema Labs: White blood cell count 7.0 Hemoglobin 14.1 Hematocrit 43.7 AST 16 ALT 31 Alkaline phosphatase 66 Radiology: CT scan pending Impression/Plan: 1. Recurrent acute diverticulitis. This appears to be uncomplicated diverticulitis. I would recommend medical therapy with IV antibiotics (Levaquin and Flagyl) converted to oral medicine within the next day or 2. I would recommend low residue diet. As long as there is no evidence of abscess, microperforation or any ascites on CAT scan, this will remain uncomplicated diverticulitis and not require surgery. I would increase the fiber bowel regimen (MiraLAX plus Citrucel) to daily or even twice daily. I have reiterated dietary measures. If the patient has another bout of recurrent acute diverticulitis within the next 6 to 12 months, then we may need to consider surgical evaluation based upon the frequent recurrences. I will review her CAT scan.
[2018-12-03 07:56] LABS: Anion Gap 14.8 mEq/L (5-15); Calcium 8.7 mg/dL (8.5-10.1)
[2018-12-03 08:33] LABS: Basophils % 0.6 % (0.1-2.0); Eosinophils # 0.1 K/mm3 (0.0-0.4); Eosinophils % 2.9 % (0.1-12.0); Hematocrit 39.4 % (37.0-47.0); Lymphocytes # 1.5 K/mm3 (0.7-4.5); Lymphocytes % 30.8 % (10-50); Mean Corpuscular HGB Conc 31.6 g/dL (31.8-35.4); Mean Corpuscular Volume 82.6 fl (81-99); Monocytes # 0.4 K/mm3 (0.1-1.0); Monocytes % 7.9 % (1.7-9.3); Neutrophils # 2.9 K/mm3 (1.8-7.8); Neutrophils % 57.9 % (37.0-80.0); Platelet Count 186 K/mm3 (142-424); Red Blood Count 4.77 M/mm3 (4.20-5.40)
--- NOTE | 2018-12-03 08:41 | Progress Note ---
Internal Medicine - PN: Subj *Date: 12/03/18 *Time: 08:38 Interval history: Better today. No nausea and she is hungry. She describes a large stool during the night. She ambulates independently. She denies chest pain or shortness of breath. Continues with left abdominal discomfort. Is only required pain medicine x1. Blood pressure has been elevated Exam Vital signs and Labs for Last 24 Hours: Temp Pulse Resp BP Pulse Ox 97.9 F 54 L 16 155/64 H 95 12/03/18 08:00 12/03/18 08:00 12/03/18 08:00 12/03/18 08:00 12/03/18 08:00 Laboratory Results - last 24 hr 12/02/18 12:55: WBC 7.0, RBC 5.24, Hgb 14.1, Hct 43.7, MCV 83.6, MCH 26.9 L, MCHC 32.2, RDW 13.1, Plt Count 206, MPV 8.3, Neut % (Auto) 65.8, Lymph % (Auto) 25.2, [place] % (Auto) 6.9, Eos % (Auto) 1.5, Baso % (Auto) 0.6, Neut # (Auto) 4.6, Lymph # (Auto) 1.8, [place] # (Auto) 0.5, Eos # (Auto) 0.1, Baso # (Auto) 0.1 12/02/18 12:55: Sodium 141, Potassium 3.4 L, Chloride 104, Carbon Dioxide 28, Anion Gap 12.4, BUN 17, Creatinine 0.90, Estimated Creat Clear 81, Estimated GFR 63, Est GFR ( Amer) 77, Glucose 131 H, Calcium 9.3, Total Bilirubin 0.6, AST 16, ALT 31, Alkaline Phosphatase 66, Total Protein 7.5, Albumin 4.0, Globulin 3.5 H, Albumin/Globulin Ratio 1.1 12/02/18 14:45: Urine Color Yellow, Urine Appearance Clear, Urine pH 7.0, Ur Specific [place] <= 1.005, Urine Protein Negative, Urine Glucose (UA) Negative, Urine Ketones Negative, Urine Blood Negative, Urine Nitrate Negative, Urine Bilirubin Negative, Urine Urobilinogen 0.2, Ur Leukocyte Esterase 1+ A, Urine WBC 3-5, Ur Squamous Epith Cells Occasional, Urine Bacteria 2+ 12/02/18 16:25: POC Glucose 85 12/02/18 21:46: POC Glucose 105 12/03/18 05:07: POC Glucose 117 H 12/03/18 07:34: Sodium 142, Potassium 3.8, Chloride 108 H, Carbon Dioxide 23, Anion Gap 14.8, BUN 15, Creatinine 0.80, Estimated Creat Clear 81, Estimated GFR 72, Est GFR ( Amer) 88, Glucose 124 H, Calcium 8.7 I & O for Last 24 hours: Intake & Output 11/30/18 12/01/18 12/02/18 12/03/18 11:59 11:59 11:59 11:59 Intake Total 1671 / 1671 Balance 1671 / 1671 Weight 195 lb 15.996 oz Radiology Reports for the Last 24 Hours: 12/02/2018 CT of abdomen and pelvis IMPRESSION: 1. Possible neuritis. 2. Constipation. 3. Colonic diverticulosis. No evidence of diverticulitis. 4. Left nephrolithiasis - Constitutional no acute distress - *Routine Respiratory Exam Present: CTA bilaterally (Anteriorly and posteriorly) - *Routine Cardiovascular Exam Present: RRR - *Routine Abdominal Exam Present: soft, normoactive bowel sounds, tenderness (Left quadrants). Absent: firm - *Routine Extremities Exam Absent: edema, calf tenderness - *Routine Neurological Exam Present: alert, oriented X3 Assessment and Plan (1) Acute abdominal pain Current visit: Yes Status: Acute Category: Medical Code(s): R10.9 - Unspecified abdominal pain (2) Urinary tract infection Current visit: Yes Status: Acute Category: Medical Code(s): N39.0 - Urinary tract infection, site not specified (3) Diverticulitis Current visit: No Status: Acute Category: Medical Code(s): K57.92 - Diverticulitis of intestine, part unspecified, without perforation or abscess without bleeding (4) Type 2 diabetes mellitus Current visit: No Status: Chronic Category: Medical Code(s): E11.9 - Type 2 diabetes mellitus without complications (5) Urinary tract infection Current visit: Yes Status: Acute Category: Medical Code(s): N39.0 - Ur inary tract infection, site not specified (6) Hypertension Current visit: No Status: Chronic Category: Medical Code(s): I10 - Essential (primary) hypertension - Assessment and plan all Dx Assessment and Plan for all problems:: Saline lock. Will order diabetic diet.
[2018-12-03 09:12] LABS: Hemoglobin 12.6 g/dL (12.2-16.2)
[2018-12-04 07:06] LABS: Basophils % 0.8 % (0.1-2.0); Eosinophils # 0.1 K/mm3 (0.0-0.4); Eosinophils % 2.3 % (0.1-12.0); Hemoglobin 12.6 g/dL (12.2-16.2); Lymphocytes # 1.9 K/mm3 (0.7-4.5); Mean Corpuscular HGB Conc 31.6 g/dL (31.8-35.4); Mean Corpuscular Volume 82.5 fl (81-99); Monocytes # 0.5 K/mm3 (0.1-1.0); Monocytes % 8.2 % (1.7-9.3); Neutrophils # 3.2 K/mm3 (1.8-7.8); Neutrophils % 55.6 % (37.0-80.0); Platelet Count 189 K/mm3 (142-424); Red Blood Count 4.85 M/mm3 (4.20-5.40); Red Cell Distribution Width 13.1 % (11.5-17.5); White Blood Count 5.7 K/mm3 (4.8-10.8)
[2018-12-04 07:13] LABS: Anion Gap 11.9 mEq/L (5-15); Calcium 9.1 mg/dL (8.5-10.1)
--- NOTE | 2018-12-04 08:12 | Progress Note ---
Internal Medicine - PN: Subj *Date: 12/04/18 *Time: 08:08 Interval history: Patient has a headache this morning. She states her blood pressure remains elevated. She is eating and drinking without difficulty. She still has some left lower quadrant soreness. Bowels have moved. She is voiding QS and denies urinary symptoms. Ambulating without difficulty Urinalysis culture reveals Klebsiella pneumoniae resistant to the Levaquin. [place] count is 80-90,000. Exam Vital signs and Labs for Last 24 Hours: Temp Pulse Resp BP Pulse Ox 98.5 F 50 L 15 169/59 H 95 12/04/18 07:36 12/04/18 07:36 12/04/18 07:36 12/04/18 07:36 12/04/18 07:36 Laboratory Results - last 24 hr 12/02/18 14:45: Urine Color Yellow, Urine Appearance Clear, Urine pH 7.0, Ur Specific [place] <= 1.005, Urine Protein Negative, Urine Glucose (UA) Negative, Urine Ketones Negative, Urine Blood Negative, Urine Nitrate Negative, Urine Bilirubin Negative, Urine Urobilinogen 0.2, Ur Leukocyte Esterase 1+ A, Urine WBC 3-5, Ur Squamous Epith Cells Occasional, Urine Bacteria 2+ 12/03/18 07:34: WBC 5.0 D, RBC 4.77, Hgb 12.6 D, Hct 39.4, MCV 82.6, MCH 26.1 L, MCHC 31.6 L, RDW 13.0, Plt Count 186, MPV 8.0, Neut % (Auto) 57.9, Lymph % (Auto) 30.8, [place] % (Auto) 7.9, Eos % (Auto) 2.9, Baso % (Auto) 0.6, Neut # (Auto) 2.9, Lymph # (Auto) 1.5, [place] # (Auto) 0.4, Eos # (Auto) 0.1, Baso # (Auto) 0.0 12/03/18 07:34: Sodium 142, Potassium 3.8, Chloride 108 H, Carbon Dioxide 23, Anion Gap 14.8, BUN 15, Creatinine 0.80, Estimated Creat Clear 81, Estimated GFR 72, Est GFR ( Amer) 88, Glucose 124 H, Calcium 8.7 12/03/18 10:59: POC Glucose 164 H 12/03/18 16:09: POC Glucose 118 H 12/03/18 20:38: POC Glucose 178 H 12/04/18 06:34: POC Glucose 125 H 12/04/18 06:40: WBC 5.7, RBC 4.85, Hgb 12.6, Hct 40.0, MCV 82.5, MCH 26.1 L, MCHC 31.6 L, RDW 13.1, Plt Count 189, MPV 8.0, Neut % (Auto) 55.6, Lymph % (Auto) 33.0, [place] % (Auto) 8.2, Eos % (Auto) 2.3, Baso % (Auto) 0.8, Neut # (Auto) 3.2, Lymph # (Auto) 1.9, [place] # (Auto) 0.5, Eos # (Auto) 0.1, Baso # (Auto) 0.0 12/04/18 06:40: Sodium 141, Potassium 3.9, Chloride 108 H, Carbon Dioxide 25, Anion Gap 11.9, BUN 17, Creatinine 0.89, Estimated Creat Clear 80, Estimated GFR 64, Est GFR ( Amer) 78, Glucose 134 H, Calcium 9.1 I & O for Last 24 hours: Intake & Output 12/01/18 12/02/18 12/03/18 12/04/18 11:59 11:59 11:59 11:59 Intake Total 1920 920 / 920 Balance 1920 920 / 920 Weight 195 lb 15.996 oz 193 lb 4 oz Microbiology Reports for the Last 24 Hours: Microbiology 12/02/18 14:45 Urine,Clean Catch Urine Culture - Final Klebsiella pneumoniae - Constitutional no acute distress - *Routine Respiratory Exam Comments: Occasional wheeze and otherwise clear to auscultation bilaterally A&P - *Routine Cardiovascular Exam Present: RRR, murmur - *Routine Abdominal Exam Present: soft, normoactive bowel sounds, tenderness (Left lower quadrant) - *Routine Extremities Exam Absent: edema, calf tenderness - *Routine Neurological Exam Present: alert, oriented X3 Assessment and Plan (1) Acute abdominal pain Current visit: Yes Status: Acute Category: Medical Code(s): R10.9 - Unspecified abdominal pain (2) Urinary tract infection Current visit: Yes Status: Acute Category: Medical Code(s): N39.0 - Urinary tract infection, site not specified (3) Diverticulitis Current visit: No Status: Acute Category: Medical Code(s): K57.92 - Diverticulitis of intestine, part unspecified, without perforation or abscess without bleeding (4) Type 2 diabetes mellitus Current visit: No Status: Chronic Category: Medical Code(s): E11.9 - Type 2 diabetes mellitus without complications (5) Urinary tract infection Current visit: Yes Status: Acute Category: Medical Code(s): N39.0 - Urinary tract infection, site not specified (6) Hypertension Current visit: No Status: Chronic Category: Medical Code(s): I10 - Essential (primary) hypertension (7) UTI due to Klebsiella species Current visit: Yes Status: Acute Category: Medical Code(s): N39.0 - Urinary tract infection, site not specified; B96.1 - Klebsiella pneumoniae [K. pneumoniae] as the cause of diseases classified elsewhere - Assessment and plan all Dx Assessment and Plan for all problems:: We will give dose of IV Rocephin now. Will restart losartan. Stable to be discharged home on oral antibiotics..
--- NOTE | 2018-12-04 15:52 | Discharge Summary ---
General - General Admission date:: 12/02/18 Discharge date: 12/04/18 HPI HPI: Ms. Cano is a 63-year-old female with a history of diabetes mellitus, hypertension, migraine headaches, scoliosis, bicuspid aortic valve, and diverticulosis who presented to the office of [facility] after experiencing worsening severe left lower quadrant abdominal pain radiating into the groin associated with nausea with and without food, abdominal distention, belching and constipation. She states the pain has been unbearable. She has not vomited as yet. She has been able to retain food and fluids. She denies fever and upper respiratory signs and symptoms. She has had this in the past and was hospitalized in August of this year with the same. With exam in the office the patient was extremely tender in her left mid and lower quadrants. She was also seen by Dr. Johansen and the decision was made to admit her to [facility] for further evaluation and treatment with CT of the abdomen, pain and nausea management and IV abx. She will be started on Flagyl and Levaquin for probable diverticulitis. UA was positive and will be repeated while hospitalized. Hospital Course Hospital Course: The patient's abdominal CT showed possible enteritis, constipation, colonic diverticulosis with no evidence of diverticulitis, and left nephrolithiasis. She was started on GI rest with clear liquids and IV fluids. She was also started on antibiotics, pain medication, and antiemetics. Dr. Whitfield was consulted due to frequent episodes of diverticulitis. He felt she had uncomplicated diverticulitis and recommended medical therapy with IV antibiotics and a low residue diet. He wanted to increase her fiber bowel regimen of MiraLAX and Citrucel to daily or even twice a day. He felt if she had another bout of recurrent acute diverticulitis within the next 6 to 12 months, she may need to consider surgical evaluation. The patient's symptoms did improve. She continued with some minimal left abdominal discomfort but was requiring less pain medication. Her blood pressure was elevated. Her carvedilol was increased to 12.5 mg twice daily and Maxide was added once daily. Her urine culture re vealed Klebsiella pneumonia which was resistant to the Levaquin she had been taking. She was therefore started on Rocephin. Her blood pressure continued to remain elevated, therefore her losartan was restarted and a renal ultrasound was ordered. It showed no hydronephrosis and a 10 mm left renal cyst. She was felt to be stable to be discharged home on cefdinir for her UTI as well as 7 more day s of Flagyl. Her Lasix will be discontinued and she will be started on losartan 100 mg daily along with Maxide daily. She will follow-up in the office of [facility] in a week. Objective Vital signs: Temp Pulse Resp BP Pulse Ox 97.9 F 52 L 17 136/58 L 95 12/04/18 15:31 12/04/18 15:31 12/04/18 15:31 12/04/18 15:31 12/04/18 15:31 Narrative: - Constitutional no acute distress Comments: She appears to be uncomfortable - *Routine HEENT Exam Head: Present: normocephalic, atraumatic Eye: Present: PERRL. Absent: conjunctival icterus, scleral injection ENT: Present: mucous membranes moist, oropharynx clear - *Routine Neck Exam Present: supple, thyromegaly. Absent: carotid bruit, lymphadenopathy - *Routine Respiratory Exam Comments: Few bibasilar crackles - *Routine Cardiovascular Exam Present: RRR - *Routine Abdominal Exam Present: normoactive bowel sounds, tenderness (In all lower quadrants in mid left quadrant. Some referred tenderness.), distended, guarding - *Routine Extremities Exam Absent: edema, calf tenderness - Routine Back/Spine/Pelvis Exam Back/Spine: Present: scoliosis - *Routine Neurological Exam Present: alert, oriented X3 Results Labs on day of discharge: Labs from last 24 hours 12/04/18 12/04/18 12/04/18 11:17 06:40 06:40 WBC 5.7 RBC 4.85 Hgb 12.6 Hct 40.0 MCV 82.5 MCH 26.1 L MCHC 31.6 L RDW 13.1 Plt Count 189 MPV 8.0 Neut % (Auto) 55.6 Lymph % (Auto) 33.0 Irion % (Auto) 8.2 Eos % (Auto) 2.3 Baso % (Auto) 0.8 Neut # (Auto) 3.2 Lymph # (Auto) 1.9 Irion # (Auto) 0.5 Eos # (Auto) 0.1 Baso # (Auto) 0.0 Sodium 141 Potassium 3.9 Chloride 108 H Carbon Dioxide 25 Anion Gap 11.9 BUN 17 Creatinine 0.89 Estimated Creat Clear 80 Estimated GFR 64 Est GFR ( Amer) 78 Glucose 134 H POC Glucose 119 H Calcium 9.1 12/04/18 12/03/18 12/03/18 06:34 20:38 16:09 WBC RBC Hgb Hct MCV MCH MCHC RDW Plt Count MPV Neut % (Auto) Lymph % (Auto) Irion % (Auto) Eos % (Auto) Baso % (Auto) Neut # (Auto) Lymph # (Auto) Irion # (Auto) Eos # (Auto) Baso # (Auto) Sodium Potassium Chloride Carbon Dioxide Anion Gap BUN Creatinine Estimated Creat Clear Estimated GFR Est GFR ( Amer) Glucose POC Glucose 125 H 178 H 118 H Calcium DS: Diagnosis - Discharge Diagnosis (1) Acute abdominal pain Status: Acute (2) Urinary tract infection Status: Acute (3) Diverticulitis Status: Acute (4) Type 2 diabetes mellitus Status: Chronic (5) Urinary tract infection Status: Acute (6) Hypertension Status: Chronic (7) UTI due to Klebsiella species Status: Acute Discharge Plan - Patient Discharge Instructions ACTIVITY: Continue current activity DIET: continue same diet Patient Instructions: DI for Urinary Tract Infection (UTI), DI for Diverticulosis - Follow up Plan Follow up with: Edelmira Kirby PA [Physician [employer]] - 12/11/18 2:30 pm Disposition: Home, Self-Half-Way Medications: Home Medications Medication Instructions Recorded Confirmed Type duloxetine 60 mg capsule,delayed 60 mg PO DAILY 30 Days #30 09/05/17 12/02/18 History release fenofibric acid (choline) 135 mg 135 mg PO DAILY 30 Days #30 09/05/17 12/02/18 History capsule,delayed release levothyroxine 88 mcg tablet 88 mcg PO DAILY 90 Days #90 09/05/17 12/02/18 History Gabapentin [Gabapentin 100mg Cap] 100 mg PO NEEDED PRN 09/13/18 12/02/18 History Metformin HCl 1,000 mg PO BID 09/13/18 12/02/18 History Montelukast Sodium [Montelukast 10 mg PO HS 09/13/18 12/02/18 History 10mg Tab] Carvedilol [Carvedilol 6.25mg Tab] 12.5 mg PO DAILY 12/02/18 12/03/18 History Cefdinir [Omnicef 300mg Capsule] 300 mg PO BID #14 cap 12/04/18 Rx Losartan Potassium 100 mg PO DAILY 30 Days #30 tab 12/04/18 Rx Triamterene/Hydrochlorothiazid 1 each PO DAILY 30 Days #30 tab 12/04/18 Rx [Maxzide 37.5 mg-25 mg Tablet] metroNIDAZOLE [Flagyl 500mg 500 mg PO Q8H 7 Days #21 tab 12/04/18 Rx Tablet] Prescriptions/Medication Reconciliation: New Triamterene/Hydrochlorothiazid [Maxzide 37.5 mg-25 mg Tablet] 1 each PO DAILY 30 Days #30 tab Cefdinir [Omnicef 300mg Capsule] 300 mg PO BID #14 cap metroNIDAZOLE [Flagyl 500mg Tablet] 500 mg PO Q8H 7 Days #21 tab Losartan Potassium 100 mg PO DAILY 30 Days #30 tab Continued duloxetine 60 mg capsule,delayed release 60 mg PO DAILY 30 Days #30 levothyroxine 88 mcg tablet 88 mcg PO DAILY 90 Days #90 fenofibric acid (choline) 135 mg capsule,delayed release 135 mg PO DAILY 30 Days #30 Montelukast Sodium [Montelukast 10mg Tab] 10 mg PO HS Metformin HCl 1,000 mg PO BID Gabapentin [Gabapentin 100mg Cap] 100 mg PO NEEDED PRN PRN Reason: BACK PAIN Carvedilol [Carvedilol 6.25mg Tab] 12.5 mg PO DAILY Discontinued losartan 100 mg-hydrochlorothiazide 12.5 mg tablet 1 tab PO DAILY 90 Days #90 Furosemide [Furosemide 20mg Tab] 20 mg PO DAILY Carvedilol [Carvedilol 6.25mg Tab] 6.25 mg PO HS
== END 2018-12-04 16:34 | disposition home or self-care (01) ==
LOC: ICU → 2ND 12:07
PROVIDERS: ADMIT Family Medicine; ATTEND Family Medicine
DX: I10 Essential (primary) hypertension; E03.9 Hypothyroidism, unspecified; G43.909 Migraine, unspecified, not intractable, without status migrainosus; Z88.1 Allergy status to other antibiotic agents; Z79.84 Long term (current) use of oral hypoglycemic drugs; Z88.6 Allergy status to analgesic agent; Z16.23 Resistance to quinolones and fluoroquinolones; N39.0 Urinary tract infection, site not specified; K57.92 Diverticulitis of intestine, part unspecified, without perforation or abscess without bleeding; Z79.899 Other long term (current) drug therapy; E11.9 Type 2 diabetes mellitus without complications; M19.90 Unspecified osteoarthritis, unspecified site; Z16.11 Resistance to penicillins; B96.1 Klebsiella pneumoniae [K. pneumoniae] as the cause of diseases classified elsewhere; Z88.2 Allergy status to sulfonamides
CPT/HCPCS: 36415; 74178; 76770; 80048; 80053; 81001; 82962; 85025; 87086; 87088; 87186; G0378; J1956; Q9967

== ENCOUNTER → 2019-07-17 13:49 | Outpatient (CLI) | payer MEDICARE, SELFPAY | PROVIDERS: Visit Provider Urology | DX: B96.1 Klebsiella pneumoniae [K. pneumoniae] as the cause of diseases classified elsewhere (principal); N39.0 Urinary tract infection, site not specified | CPT/HCPCS: 87086; 87088; 87186 ==

== ENCOUNTER → 2019-09-03 11:19 | Outpatient (CLI) | payer MEDICARE, SELFPAY ==
--- NOTE | 2019-09-03 11:24 | XR_ITS ---
PROCEDURE: XR CHEST 2V CLINICAL HISTORY: COUGH,CONGESTION Cough and congestion COMPARISON: No exams were available for comparison FINDINGS: The cardiomediastinal silhouette and pulmonary vascularity are within normal limits. The lungs are clear without infiltrates, suspicious nodules, or pleural effusions. Calcified granuloma is present in the left upper lobe. Mendez rods are present stabilizing a midthoracic scoliosis convex right. IMPRESSION: No acute findings. Dictated by: Nuno Patten MD 09/03/2019 18:58 Electronically signed by Nuno Patten MD in [place] 09/03/2019 18:58
== END ==
PROVIDERS: PCP Family Medicine; Visit Provider Family Medicine
DX: J98.8 Other specified respiratory disorders (principal)
CPT/HCPCS: 71046

== ENCOUNTER → 2019-10-07 16:19 | Outpatient (CLI) | payer MEDICARE, SELFPAY ==
[2019-10-07 16:56] LABS: Microscopic, Urine URINE MICROSCOPIC (MICROSCOPIC)
[2019-10-07 16:57] LABS: Appearance,Urine CLEAR (Clear); Bilirubin,Urine Negative (Negative); Blood, Urine Negative (Negative); Color,Urine YELLOW (Yellow); Glucose,Urine (UA) Negative (Negative); Ketones,Urine Negative (Negative); Leukocyte Esterase,Urine TRACE (Negative); Nitrate,Urine POSITIVE (Negative); Protein,Urine Negative (Negative)
[2019-10-07 18:23] LABS: Bacteria,Urine 1+ /lpf; Squamous Epithelial Cell,Urine Occasional #/hpf (0-5)
== END ==
PROVIDERS: Visit Provider Urology
DX: N39.9 Disorder of urinary system, unspecified (principal)
CPT/HCPCS: 81001

== ENCOUNTER → 2019-10-09 10:14 | Outpatient (CLI) | payer MEDICARE, SELFPAY | PROVIDERS: Visit Provider Urology | DX: B96.1 Klebsiella pneumoniae [K. pneumoniae] as the cause of diseases classified elsewhere (principal); N39.0 Urinary tract infection, site not specified | CPT/HCPCS: 87086; 87088; 87186 ==

== ENCOUNTER → 2019-11-14 09:05 | Outpatient (CLI) | payer MEDICARE, SELFPAY ==
[2019-11-14 11:04] LABS: Coronavirus 19 IgG Antibody Negative (Negative); Coronavirus 19 IgM Antibody Negative (Negative)
== END ==
PROVIDERS: Visit Provider Internal Medicine Gastroenterology
DX: Z01.818 Encounter for other preprocedural examination (principal); Z12.11 Encounter for screening for malignant neoplasm of colon
CPT/HCPCS: 36415; 86328

== ENCOUNTER 2019-11-17 06:34 | Day surgery (SDC) | payer MEDICARE, SELFPAY ==
--- NOTE | 2019-11-13 09:51 | SUR.PREOP ---
11/13/2019 @ 1959--PHONE CALL MADE TO PATIENT. PATIENT UNDERSTANDS THAT LAB WORK AND COVID TESTING NEEDS TO BE COMPLETED @ 0900 ON 11/14/2019. PATIENT UNDERSTANDS IF LAB WORK AND COVID-19 TESTS ARE NOT COMPLETED BY 12PM ON THAT DATE, THE SURGERY SCHEDULED WILL BE CANCELLED AND RESCHEDULED FOR ANOTHER TIME.
[2019-11-13 12:30] VITALS: BMI 29.6
[2019-11-17] VITALS (7 sets, daily range): BP systolic 97–158; BP diastolic 48–87; PULSE 51–63; RESP 16–18; TEMP 36.1–36.6; O2SAT 93–97
[2019-11-17 07:11] LABS: POC Glucose,Bedside 155 (70-110)
--- NOTE | 2019-11-17 07:18 | P.PN_ITS ---
[facility] Anesthesia Checklist - Patient Identification Patient Identification: Arm Band, Verbal (Name & ) - Structural Data Admitted From: Home Planned Operative Procedure/s: EGD/Colonoscopy Consent for Planned Operative Procedure(s) Verified: Yes Verified Documents: Surgical Consent, History and Physical - NPO Status Verified Time NPO: 00:00 - Chart Verification Results Verified: None (serology) - Additional verifications Anesthesia Reactions: Yes (PONV) - Airway Assessment C-Spine Mobility Assessed: Yes (Full neck ROM, MP II, TMD 3) TMJ Mobility Assessed: Yes Dentition: Good Dentition (missing tooth) - Neurological Assessment Level of Consciousness: Awake, Alert, Appropriate, Follows Commands Hx Seizures: No Numbness or tingling in extremities: No - Anesthesia Plan Anesthesia Risk discussed: Yes Anesthesia Plan: Verified ASA Class: III Anesthesia Type: MAC [facility] History I have reviewed the patient's past medical history: Yes Medical History: Reports:: Congestive Heart Failure, Depression, Diabetes Mellitus Type 2, Gastroesophageal Reflux Disease(GERD), Hyperlipidemia, Hypertension, Kidney Stones Denies:: Cancer, Diabetes Mellitus Type 1, Internal Pacemaker, MRSA, Seizures *Have you ever received a pneumonia vaccine?: Yes *Have you received a flu vaccine this season?: No Other Medical History: Reports: Arthritis, Hypothyroidism, Other Comment:: Chronic LBP Anesthesia experience/problems:: PONV Laterality Cases: Bilateral: Tonsillectomy Other Surgeries: Yes: Appendectomy, Cardiac Catheterization, Cholecystectomy, Colonoscopy, EGD, Hernia Repair, Hysterectomy-Total, Thyroidectomy, Tubal Ligation, Other. No: Pacemaker Amputation: No Fractures: Yes (rt arm) Comment: Lumbar fusion - *Social History Educational Level: Completed High School Smoking Status: Never smoker Alcohol Intake: never Alcohol Intake Frequency:: other Substance Use Type: denies use *Occupational Status:: employed Housing: house Household Members: spouse *Travel in the last 8 weeks: None - Psychiatric History Pschychiatric History:: Reports:: Depression Family Hx:: Cancer, Diabetes, Hypertension
--- NOTE | 2019-11-17 07:46 | P.PCN_ITS ---
[facility] Procedure Note Procedure Note:: Upper Endoscopy Procedure Report: Esophagogastroduodenoscopy with cold biopsies and TTS balloon dilation Endoscopost: Scott Whitfield II, MD Referring Physician: JULIENNE Aguillon Date of Procedure: November 17, 2019 Equipment: Olympus GIF 180 standard upper endoscope Sedation: MAC sedation Indications: Mrs. Cano is a 64-year-old female with epigastric abdominal pain/dyspepsia that began around 3 months ago. This does occur primarily postprandially. She does get some reflux. The patient has been on omeprazole 40 mg by mouth daily. She has occasional nausea in the mornings and sometimes will regurgitate food content from a meal the previous evening. The patient does state that she had a gastric emptying study a few years ago that showed delayed gastric emptying. She does have type 2 diabetes mellitus. The patient does report bloating. She does have occasional dysphagia which she attributes to her cervical neck curvature and possibly prior partial thyroidectomy. She does get some occasional left lower quadrant discomfort and has a prior history of sigmoid diverticulitis. She does have a moderate amount of stress. She reports no melena or weight loss. She has no early satiety or belching. She reports no hematochezia. She has regular bowel function. The patient's recent hemoglobin and hematocrit were 14.8 and 45.4 (normal). Procedure: Prior to the procedure, a history and physical exam was performed, and patient's medications and allergies were reviewed. The risks, benefits and alternatives of the sedation and procedure were discussed with the patient. All questions were answered and informed consent was obtained. The patient was brought to the procedure room. Patient identification and proposed procedure were verified by the physician and the nurse. The patient was placed in a left lateral decubitus position and the scope was passed under direct vision. Throughout the procedure, the patient's blood pressure, pulse, and oxygen saturations were monitored continuously. The upper GI endoscopy was accomplished without difficulty. The patient tolerated the procedure well. Findings: The scope was passed directly into the upper esophagus and advanced to the third portion of the duodenum. The post bulbar duodenum and duodenal bulb were normal with normal mucosa and conniventes. The scope was withdrawn through a normal duodenal bulb and pylorus into the stomach. There was moderate linear reactive gastropathy of the antrum and body of the stomach with some bile reflux. There was no retained food content. The remainder of the antrum, body and fundus of the stomach were grossly normal. Upon retroflexion there was no hiatal hernia. 2 biopsies were taken in the antrum and along the lesser curvature for histology to rule out gastritis and/or H pylori. The scope was then withdrawn into the esophagus. There was no evidence of reflux esophagitis or Solano's. There was no Schatzki's ring. There were tertiary contractions and evidence of moderate esophageal dysmotility. The entire esophagus was dilated to 60 Maori/20 mm with a TTS hydrostatic balloon. There was mild resistance at the cricopharyngeus. The remainder of the esophageal mucosa was normal. Impression: 1. Nonerosive GERD with moderate esophageal dysmotility and cricopharyngeal spasm status post dilation to 20 mm 2. Moderate linear reactive gastropathy with bile reflux Plan: I will follow-up the biopsies. The patient has functional dyspepsia with visceral sensitivity. We will discuss dietary measures and treatment options. I will proceed with diagnostic colonoscopy.
--- NOTE | 2019-11-17 08:22 | HMH.PROC ---
[facility] Procedure Note Procedure Note:: Colonoscopy Procedure Report: Colonoscopy with cold snare polypectomy Endoscopist: Scott Whitfield II, MD Referring physician: JULIENNE Aguillon Date of Procedure: November 17, 2019 Equipment: Olympus 180 variable stiffness pediatric colonoscope Sedation: MAC sedation Indication: Mrs. Cano is a 64-year-old female with dyspepsia. She reports epigastric abdominal pain and discomfort. She also has some chronic left lower quadrant abdominal discomfort. She has had prior diverticulitis. She has not had any recent bouts of diverticulitis. She did have a CAT scan in January 2019 that showed evidence of obstipation and colonic diverticulosis without diverticulitis. The patient did have an EGD with pr in February 2017. She had a colonoscopy with Dr. Wm Leung in October 2014 and had no colonic polyps. She reports no rectal bleeding, weight loss or change in bowel habits. She reports no family history of colon cancer. Procedure: Prior to the procedure, a history and physical exam was performed, and patient's medications and allergies were reviewed. The risks, benefits and alternatives of the sedation and procedure were discussed with the patient. All questions were answered and informed consent was obtained. The patient was brought to the procedure room. Patient identification and proposed procedure were verified by the physician and the nurse. The patient was placed in a left lateral decubitus position and the scope was passed under direct vision. Throughout the procedure, the patient's blood pressure, pulse, and oxygen saturations were monitored continuously. The colonoscopy was accomplished without difficulty. The patient tolerated the procedure well. Findings: On digital rectal examination there was normal rectal tone. There were no external hemorrhoids. The colonoscope was introduced through the anal canal to the rectum and advanced to the cecum. The ileocecal valve and appendiceal orifice were identified. The scope was advanced a short distance into the ileum which appeared grossly normal. The scope was then withdrawn into the colon. There were scattered diverticuli throughout the colon but more predominantly in the descending and sigmoid colon (LEFT colon). The remaining cecum, ascending colon were normal. There was a 3 to 4 mm polyp in the transverse colon removed via cold snare polypectomy. The descending colon was normal. There was pericolonic adhesions in the sigmoid and some mild chronic sigmoid diverticulitis. The rectum itself was normal. Upon retroflexion within the rectum there were grade 1 internal hemorrhoids. The preparation was excellent throughout with Garrett Preparation Score of 9. The cecal time was 13 minutes. Impression: 1. Diminutive transverse colon polyp 2. Pandiverticulosis with evidence of chronic sigmoid diverticulitis with some sigmoid pericolonic adhesions 3. Grade 1 internal hemorrhoids Plan: I will follow-up the polyp histology and recommend repeat screening/surveillance colonoscopy in 7 to 10 years. I would encourage a fiber bowel regimen on a long-term daily maintenance basis. We will also discuss dietary measures to follow.
== END 2019-11-17 09:25 | disposition home or self-care (01) ==
LOC: OUTP 06:35
PROVIDERS: PCP Family Medicine; Visit Provider Internal Medicine Gastroenterology
PROC: 0DJ08ZZ Inspection of Upper Intestinal Tract, Via Natural or Artificial Opening Endoscopic (ICD-10-PCS; CPT 43235; principal; 2019-11-17 08:00)
DX: K63.5 Polyp of colon (principal); K64.0 First degree hemorrhoids; K57.30 Diverticulosis of large intestine without perforation or abscess without bleeding; K57.32 Diverticulitis of large intestine without perforation or abscess without bleeding; K66.0 Peritoneal adhesions (postprocedural) (postinfection); E11.9 Type 2 diabetes mellitus without complications; K21.9 Gastro-esophageal reflux disease without esophagitis; J39.2 Other diseases of pharynx; K22.4 Dyskinesia of esophagus; K31.9 Disease of stomach and duodenum, unspecified; E78.5 Hyperlipidemia, unspecified; I10 Essential (primary) hypertension; Z87.19 Personal history of other diseases of the digestive system; Z88.5 Allergy status to narcotic agent; Z88.2 Allergy status to sulfonamides
CPT/HCPCS: 43239; 43249; 45385; 82962; 88305; C1726; J2704

== ENCOUNTER → 2019-11-18 13:42 | Outpatient (CLI) | payer MEDICARE, SELFPAY ==
--- NOTE | 2019-11-18 13:46 | US_ITS ---
PROCEDURE: US THYROID CLINICAL INDICATION: THYROID NODULE Follow-up thyroid nodule COMPARISON: THY US thyroid from 09/27/2018 FINDINGS: Right lobe: The right lobe is been removed Left lobe: 4.4 x 2 x 1.8 cm. 1 cm cystic lesion in the mid polar area. Previously this was mostly solid. 4 mm nodule is present in the mid polar region which is partially calcified unchanged. 15 x 9 mm hypoechoic nodule lower pole unchanged IMPRESSION: Prior right thyroidectomy. No new thyroid nodules are evident on the left. Previously noted predominantly solid nodule is now mostly cystic in the mid pole. The remaining nodules are unchanged. Dictated by: Nuno Patten MD 11/18/2019 16:02 Electronically signed by Nuno Patten MD in [place] 11/18/2019 16:02
--- NOTE | 2019-11-18 13:47 | MM_ITS ---
PROCEDURE: MM DIG SCREENING MAMM BI W/CAD Digital Breast Tomosynthesis Included CLINICAL INDICATION: SCREENING There is a history of breast cancer patient's mother diagnosed at age 50. COMPARISON: [facility] DIGITAL MAMM-SCREEN BILATERAL from 02/14/2010 [facility] DIGITAL MAMM-SCREEN BILATERAL from 02/23/2011 [facility] MM Dig screening mamm BI w/CAD from 08/14/2018 TECHNIQUE: Standard CC and MLO images and 3D Tomosynthesis was obtained. R2 CAD reviewed. FINDINGS: Scattered fibroglandular densities are seen throughout both breasts. There is an asymmetric density upper-outer quadrant left breast which has been seen previously and appears to be essentially stable on studies dating back to January 2010. However on the CC view and with julio images this lesion is better seen and may have increased slightly in size. Recommend the patient return for spot compression views and ultrasound for additional evaluation. There are no suspicious microcalcifications. IMPRESSION: Fibrofatty parenchyma with asymmetric density left breast which may have shown a slight interval increase in size from previous studies BI-RAD Category: 0 additional imaging recommended FOLLOW-UP: IMM Immediate Follow-up Recommended (A letter has been sent to the patient regarding results of the study.) Dictated by: Dr. Lloyd Chavez MD 11/20/2019 09:[address] Lloyd Chavez MD in [place] 11/20/2019 09:24
[2019-11-18 16:12] LABS: Free T4 (Free Thyroxine) 1.72 ng/dl (0.78-2.19)
[2019-11-18 16:26] LABS: Thyroid Stimulating Hormone 0.67 uIU/mL (0.465-4.68)
== END ==
PROVIDERS: PCP Family Medicine; Visit Provider Otolaryngology
DX: Z12.31 Encounter for screening mammogram for malignant neoplasm of breast (principal); E03.0 Congenital hypothyroidism with diffuse goiter; D34 Benign neoplasm of thyroid gland
CPT/HCPCS: 36415; 76536; 77063; 77067; 84439; 84443

== ENCOUNTER → 2019-11-24 11:41 | Outpatient (CLI) | payer MEDICARE, SELFPAY ==
--- NOTE | 2019-11-24 12:03 | ECG_ITS ---
APPROVED REPORT Exam: Resting ECG HR:55 bpm ECG Measurements Heart Rate 55 AXES SC 162 P 61 QRSd 78 QRS 63 QT 468 T 83 QTc 447 <Conclusion> Sinus bradycardia Poor R Wave Progression Abnormal ECG Electronically signed by : Eagle Edward, 11/24/2019 12:13:37
== END ==
PROVIDERS: PCP Family Medicine; Visit Provider Nurse Practitioner Family
DX: R42 Dizziness and giddiness (principal)
CPT/HCPCS: 93005; 93225; 93226

== ENCOUNTER → 2019-11-27 09:13 | Outpatient (CLI) | payer MEDICARE, SELFPAY ==
--- NOTE | 2019-11-27 | CA_ITS ---
APPROVED REPORT [facility]: CT Laterality: Bilateral Study Quality: GoodAdequate Indications: bruit Risk Factors Hypertension: Hyperlipidemia CAD, Doppler Spectral Velocity Analysis ECA (R) 97.70/6.00 cm/s ECA (L) 164.00/12.80 cm/s dICA (R) 101.10/24.10 cm/s dICA (L) 80.90/27.00 cm/s Sylvia (R) 116.50/29.90 cm/s Sylvia (L) 45.30/9.00 cm/s pICA (R) 78.10/23.50 cm/s pICA (L) 41.50/15.00 cm/s dCCA (R) 57.10/14.60 cm/s dCCA (L) 52.40/9.10 cm/s pCCA (R) 63.40/12.90 cm/s pCCA (L) 81.90/8.70 cm/s Vert (R) 42.50/10.20 cm/s Vert (L) 41.70/10.90 cm/s ICA/CCA 1.80 ICA/CCA 1.00 Findings Duplex evaluation demonstrates stenosis of the right proximal internal carotid artery <20% with PSV <140 cm/sec, EDV <100 cm/sec, and IC/CC Ratio <4.0. Duplex evaluation demonstrates stenosis of the left proximal internal carotid artery <20% with PSV <140 cm/sec, EDV <100 cm/sec, and IC/CC Ratio <4.0. Left ECA >60%. Left thyroid cyst Conclusion No increased velocities to suggest hemodynamically significant stenosis in either internal carotid artery. Electronically signed by : Nuno Patten MD 11/27/2019 18:36:19
== END ==
PROVIDERS: PCP Family Medicine; Visit Provider Nurse Practitioner Family
DX: R09.89 Other specified symptoms and signs involving the circulatory and respiratory systems (principal)
CPT/HCPCS: 93880

== ENCOUNTER → 2019-12-12 12:37 | Outpatient (CLI) | payer MEDICARE, SELFPAY ==
--- NOTE | 2019-12-12 12:42 | MM_ITS ---
PROCEDURE: MM DIG MAMM DX UNILAT LT CAD Digital Breast Tomosynthesis Included CLINICAL INDICATION: ABNORMAL MAMM COMPARISON: [facility] DIGITAL MAMM-SCREEN BILATERAL from 02/23/2011 [facility] MM Dig screening mamm BI w/CAD from 08/14/2018 MM DIG SCREENING MAMM BI W/CAD from 11/18/2019 US BREAST LT COMPLETE from 12/12/2019 TECHNIQUE: Standard CC and MLO images and 3D Tomosynthesis was obtained. R2 CAD reviewed. FINDINGS: The previously noted lobulated lesion upper outer quadrant at approximately the 2 o'clock position does not press out on spot compression views. Ultrasound performed the same date showed no definite ultrasound correlation for this lesion. There is no significant interval changes size of this lesion when compared to previous studies dating back through 02/23/2011. There is a small notch like irregularity of the border and this could be an intramammary node. I feel no additional evaluation is indicated at this time. IMPRESSION: Benign-appearing slightly lobulated lesion as described likely intramammary node or possibly fibroadenoma BI-RAD Category: 2 Benign Finding(s) FOLLOW-UP: 1YR 1 Year Follow-up (A letter has been sent to the patient regarding results of the study.) Dictated by: Dr. Lloyd Chavez MD 12/19/2019 10:[address] Lloyd Chavez MD in [place] 12/19/2019 10:35
--- NOTE | 2019-12-12 12:43 | US_ITS ---
PROCEDURE: US BREAST LT COMPLETE CLINICAL INDICATION: ABN MAMM COMPARISON: No exams were available for comparison FINDINGS: There is a small hypoechoic lesion 12 o'clock position near the nipple measuring 0.9 x 0.4 by 0.4 cm with minimal internal debris the appearance suggesting a small complex cyst. There is no definite ultrasound correlation for the slightly lobulated lesion seen upper outer quadrant at approximately the 2 o'clock position. There is a normal appearing node in the axilla. IMPRESSION: Probable small complex cyst, no definite ultrasound correlation for the lobulated lesion seen on the mammogram and see mammogram report Dictated by: Dr. Lloyd Chavez MD 12/19/2019 10:[address] Lloyd Chavez MD in [place] 12/19/2019 10:51
== END ==
PROVIDERS: PCP Family Medicine; Visit Provider Nurse Practitioner Family
DX: R92.8 Other abnormal and inconclusive findings on diagnostic imaging of breast (principal)
CPT/HCPCS: 76641; 77061; 77065; G0279

== ENCOUNTER → 2020-02-20 12:53 | Outpatient (CLI) | payer MEDICARE, SELFPAY ==
--- NOTE | 2020-02-20 13:14 | XR_ITS ---
PROCEDURE: XR CHEST PORTABLE CLINICAL HISTORY: COVID OUT PATIENT COMPARISON: CR XR CHEST 2V from 09/03/2019 FINDINGS: The lung berumen are well expanded and appear clear of infiltrate. Cardiac size is normal and vascularity is normal. The Mendez rods are again noted stabilizing the mild dextroscoliotic curvature thoracic spine. There is no pleural fluid. IMPRESSION: No acute findings. Dictated by: Dr. Lloyd Chavez MD 02/20/2020 13:36 Dr. Lloyd Chavez MD in [place] 02/20/2020 13:36
[2020-02-20 14:34] LABS: Basophils # 0.1 K/mm3 (0-0.2); Basophils % 0.8 % (0.1-2.0); Eosinophils # 0.1 K/mm3 (0.0-0.4); Eosinophils % 1.7 % (0.1-12.0); Hematocrit 40.9 % (37.0-47.0); Hemoglobin 13.4 g/dL (12.2-16.2); Lymphocytes # 1.5 K/mm3 (0.7-4.5); Lymphocytes % 23.8 % (10-50); Mean Corpuscular HGB Conc 32.8 g/dL (31.8-35.4); Mean Corpuscular Hemoglobin 28.4 pg (27.0-31.2); Mean Corpuscular Volume 86.7 fl (81-99); Mean Platelet Volume 8.1 fl (7.4-10.4); Monocytes # 0.3 K/mm3 (0.1-1.0); Monocytes % 5.1 % (1.7-9.3); Neutrophils # 4.4 K/mm3 (1.8-7.8); Neutrophils % 68.5 % (37.0-80.0); Platelet Count 187 K/mm3 (142-424); Red Blood Count 4.72 M/mm3 (4.20-5.40); Red Cell Distribution Width 13.2 % (11.5-17.5); White Blood Count 6.5 K/mm3 (4.8-10.8)
[2020-02-22 17:44] LABS: Covid-19 Nasal PCR Sendout Lex Not Detected
== END ==
PROVIDERS: PCP Family Medicine; Visit Provider Physician Assistant
DX: Z03.818 Encounter for observation for suspected exposure to other biological agents ruled out (principal)
CPT/HCPCS: 71045; 85025; U0004

== ENCOUNTER → 2020-03-26 13:16 | Outpatient (CLI) | payer MEDICARE, SELFPAY ==
--- NOTE | 2020-03-26 13:20 | CT_ITS ---
PROCEDURE: CT MASTOID W/O CLINICAL HISTORY: LT MASTOID PAIN COMPARISON: No exams were available for comparison TECHNIQUE: Axial images obtained with sagittal and coronal reformats. All CT scans at the facility use one or more dose reduction, viz: automated exposure control, ma/kV adjustment per patient size (including targeted exams where dose is matched to indication, i.e. head), or iterative reconstruction technique. FINDINGS: Scattered fluid is present in the left mastoid air cells. No obvious bony destructive process. The middle ear is pneumatized in eyes. There is no evidence of scutal erosion. No antral soft tissue thickening or mass. Acoustic foramen does not appear widened. No mucosal thickening evident of paranasal sinuses. No air-fluid levels. Incidental note is made of osteoarthritic changes of the TMJs slightly worse on the right compared to the left. IMPRESSION: 1. Left mastoid effusion suggesting underlying inflammatory changes. 2. Bilateral TMJ arthropathy Dictated by: Nuno Patten MD 03/27/2020 07:09 Nuno Patten MD in [place] 03/27/2020 07:09
== END ==
PROVIDERS: PCP Family Medicine; Visit Provider Otolaryngology
DX: H70.12 Chronic mastoiditis, left ear (principal)
CPT/HCPCS: 70486

== ENCOUNTER → 2020-07-13 14:31 | Outpatient (CLI) | payer MEDICARE, SELFPAY ==
--- NOTE | 2020-07-13 | CA_ITS ---
APPROVED REPORT EXAM: Comprehensive 2D, Doppler, and color-flow Echocardiogram [employer] Pastry Baker: Ashley Mccullough [facility], RVS Ht: 5 ft 7 in Wt: 195lbs BSA: 2.00 BP: 160/72 mmHg Indications: hx-Bicuspid Aortic valve per cath, increasing SOA, HTN, DM, HLD 2D Dimensions IVSd 0.86 cm LVEF (Visual) 69.80 % PWd 0.95 cm LVDd 4.94 cm LVDs 2.99 cm LVOT 1.57 cm (M/F) 1.5-2.5 Ascending Aorta 2.65 cm M-Mode Dimensions LA Diam 3.26 cm (1.9-4.0) Ao Diam 2.93 cm (2.0-3.7) EPSs 0.57 cm LV Diastology E Decel Time 237.00 (160-240 msec) E/A Ratio 0.75 MED E' 6.80 (< 7 cm/sec) MED A' 10.30 cm/s E'/MED E' Ratio 12.24 (>14) LAT E' 8.90 (<10 cm/sec) LAT A' 10.80 cm/s E/LAT E' Ratio 9.35 (>14) Aortic Valve AI PHT 600.00 ms AO Peak GR. 9.30 mmHg Mitral Valve MV E Max Venu. 83.00 (40-130 cm/s) MV A Velocity 110.00 (40-130 cm/s) E/A Ratio 0.75 MV Decel. Time 237.00 (160-240 ms) MV PHT 69.00 ms Pulmonary Valve PV Peak Velocity 141.00 (50-150 cm/s) Tricuspid Valve TR P. Velocity 190.00 cm/s RAP Estimate 10.00 mmHg RVSP 24.40 mmHg Left Ventricle Left atrium is mildly enlarged, left ventricle is normal size, mild concentric left ventricular hypertrophy, visually estimated ejection fraction 55% with no regional wall motion abnormality, grade 1 diastolic dysfunction seen without tissue Doppler evidence of raise left atrial pressure. Right Ventricle Right atrium and right ventricle are normal size and contractility. Aortic Valve Aortic valve leaflets are not well visualized, it appears to be trileaflet, there is no aortic stenosis, there is mild aortic insufficiency. Mitral Valve Mitral valve is grossly normal, there is mild mitral regurgitation. Tricuspid Valve Tricuspid valve is grossly normal, there is trace tricuspid regurgitation, tricuspid regurgitation jet velocity is inadequate for calculation of the right ventricular systolic pressure. Pulmonic Valve Pulmonic valve is poorly visualized. Great Vessels Aortic root is normal size. Pericardium No significant pericardial effusion noted. Conclusion 1. Mildly enlarged left atrium, normal left ventricular size, mild concentric left ventricular hypertrophy, visually estimated ejection fraction 55% with no regional wall motion abnormality, grade 1 diastolic dysfunction seen without tissue Doppler evidence of raise left atrial pressure. 2. Thickened and calcified aortic valve leaflets not well visualized, appears to be trileaflet, there is mild aortic insufficiency. 3. Trace mitral and tricuspid regurgitation. 4. No significant pericardial effusion noted. Electronically signed by : Colt Santoyo, 07/13/2020 20:35:03
== END ==
PROVIDERS: PCP Family Medicine; Visit Provider Physician Assistant
DX: R06.02 Shortness of breath (principal); R01.1 Cardiac murmur, unspecified; Q23.1 Congenital insufficiency of aortic valve
CPT/HCPCS: 93306

== ENCOUNTER → 2020-07-27 06:20 | Outpatient (CLI) | payer SELFPAY ==
--- NOTE | 2020-07-27 06:20 | CT_ITS ---
PROCEDURE: CT HEART W CALCIUM SCORE CLINICAL HISTORY: DM COMPARISON: No exams were available for comparison TECHNIQUE: Axial images obtained with sagittal and coronal reformats. All CT scans at the facility use one or more dose reduction, viz: automated exposure control, ma/kV adjustment per patient size (including targeted exams where dose is matched to indication, i.e. head), or iterative reconstruction technique. FINDINGS: Total coronary artery calcium score is 0. No identifiable calcific atherosclerotic plaque with very low cardiovascular disease risk there is some calcification noted along the inferior aspect of the left atrium and left ventricle junction nonspecific. There is a small hiatal hernia. Atelectatic or fibrotic changes are present in the left lower lobe. Artifact is present from postsurgical changes in the thoracic spine IMPRESSION: No identifiable calcific atherosclerotic plaque with very low cardiovascular disease risk Dictated by: Nuno Patten MD 07/27/2020 15:06 Nuno Patten MD in [place] 07/27/2020 15:06
== END ==
PROVIDERS: PCP Family Medicine; Visit Provider Internal Medicine Cardiovascular Disease
DX: Z13.6 Encounter for screening for cardiovascular disorders (principal)
CPT/HCPCS: 75571

== ENCOUNTER → 2020-07-27 06:21 | Outpatient (CLI) | payer MEDICARE, SELFPAY ==
--- NOTE | 2020-07-27 06:22 | NM_ITS ---
APPROVED REPORT Exam: Nuclear Stress Test Indication: SOB, HTN, DM, High cholesterol, Family history Patient Location: Outpatient Stress Tech: Gris Palma NM Tech:Jeanette Becerra, ARRT, RT (R)(N) Ht: 5 ft 7 in Wt: 195 lbs Bra Size: 38B HR: 56 bpm BP: 175/54 mmHg BSA: 2.00 m2 BMI: 30.5 History: SOB, HTN, DM, High cholesterol, Family history Procedure: Patient received a 0.4 mg of intravenous Lexiscan, resting heart rate 56 bpm, resting blood pressure 175/54 mmHg, with Lexiscan maximum heart rate achived was 90 bpm which is Less than 85 % of the maximum predicted heart rate and blood pressure was 163/66 mmHg. With Lexiscan, patient denied any complaint of chest pain. Electrocardiogram Resting electrocardiogram showed sinus rhythm, with Lexiscan there is less than 1.[address] segment depression noted from the baseline EKG. The EKG portion of the Lexiscan is nondiagnostic. Cardiac Stress and Resting SPECT Images: Cardiac Stress and Resting SPECT images were obtained using technetium 99m Myoview 32.6 mCi stress and 10.04 mCi at rest. Gated SPECT for analysis of segmental wall motion and calculation of the ejection fraction also done. Prone images were not obtained due to patient factors. Cardiac stress and rest SPECT images show decreases activity in the lateral wall which improves on the resting images suggestive of reversible ischemia, computer derived ejection fraction is 60% with no regional wall motion abnormality, right ventricle is normal size and contractility. Conclusion: 1. The EKG portion of the Lexiscan is nondiagnostic. 2. Scintigraphic evidence of reversible ischemia involving the lateral wall,, computer derived ejection fraction is 60% with no regional wall motion abnormality, right ventricle is normal size and contractility. 3. Abnormal Lexiscan Myoview study. Electronically signed by : Colt Santoyo, 07/27/2020 21:47:29
--- NOTE | 2020-07-27 06:22 | CA_ITS ---
APPROVED REPORT Exam: Pharmacologic Technologist: Gris Palma Ht: 5 ft 8 in Wt: 197 lbs BSA: 2.03 m2 HR: 56 bpm BP: 175/54 mmHg Indications: Shortness of Breath Medical History Medications: Omeprazole,,,,, Levothyroxine,,,,, Furosemide (LASIX),,,,, Gabapentin,,,,, Losartan,,,,, Carvedilol,,,,, Buspirone,,,,, DulOXETINE,,,,, FeNOfibric Acid,,,,, Sitagliptin-Metformin,,,,, Stress Test Details Test: LEXISCAN HR Resting HR: 65 bpm Max Heart Rate (APMHR): 156 bpm Max HR Achieved: 93 bpm Target HR (85% APMHR): 132 bpm % of APMHR: 59 Recovery HR: 72 bpm BP Resting BP: 175.0/54.0 mmHg Max BP: 175.0/54.0 mmHg Recovery BP: 159.0/60.0 mmHg ECG Resting ECG: Sinus bradycardia, LVH, Right axis deviation, ST abnormalities inferiorly, PVC Clinical Exercise duration: 04:00 min Highest Stage Achieved: Stress ECG Conclusion Symptoms: Shortness of air, malaise, mild nausea, headache. No chest pain. Arrhythmias/Ectopy: None ST-T Changes: Exaggeration of baseline ST abnormalities inferiorly. Conclusion: Non-diagnostic Lexiscan stress. Myoview images reported separately. Electronically signed by : Colt Santoyo, 07/27/2020 21:26:19
--- NOTE | 2020-07-27 09:57 | HMH.ITSHM ---
Current Home Medications as stated by this patient Tatyana Cano or guest service representative. []SITAGLIPTIN OMEPRAZOLE LOSARTAN LEVOTHYROXINE GABAPENTIN FUROSEMIDE EZETIMIBE DULOXETINE CARVEDILOL BUSPIRONE ASA AMLODIPINE
== END ==
PROVIDERS: PCP Family Medicine; Visit Provider Internal Medicine Cardiovascular Disease
DX: R06.00 Dyspnea, unspecified
CPT/HCPCS: 78452; 93017; A9502; J2785

== ENCOUNTER → 2020-08-13 13:52 | Outpatient (CLI) | payer MEDICARE, SELFPAY ==
[2020-08-13 15:32] LABS: Chloride 103 mmol/L (98-107); Sodium 140 mmol/L (136-145)
[2020-08-13 15:33] LABS: Potassium 4.4 mmoL/L (3.5-5.1)
[2020-08-13 15:35] LABS: Anion Gap 11.4 mEq/L (5-15); Blood Urea Nitrogen 30 mg/dl (7-17); Carbon Dioxide 30 mmol/L (22.0-30.0); Estimated Glomerular Filt Rate 45 ml/min (>60); GFR (African American) 55 ML/MIN (>60)
[2020-08-13 15:36] LABS: Calcium 10.1 mg/dl (8.4-10.2); Glucose 122 mg/dl (74-100)
[2020-08-13 15:45] LABS: NT Pro Brain Natriuretic Pep. 34.1 pg/mL (0-125)
== END ==
PROVIDERS: Visit Provider Internal Medicine Cardiovascular Disease
DX: E78.5 Hyperlipidemia, unspecified (principal); I10 Essential (primary) hypertension; I35.1 Nonrheumatic aortic (valve) insufficiency; R06.02 Shortness of breath
CPT/HCPCS: 36415; 80048; 83880

== ENCOUNTER → 2020-08-23 11:26 | Outpatient (CLI) | payer MEDICARE, SELFPAY | PROVIDERS: PCP Family Medicine; Visit Provider Family Medicine | DX: Z01.818 Encounter for other preprocedural examination (principal); Z11.52 Encounter for screening for COVID-19; M19.049 Primary osteoarthritis, unspecified hand | CPT/HCPCS: U0003 ==

== ENCOUNTER → 2021-01-27 13:43 | Outpatient (CLI) | payer MEDICARE, SELFPAY ==
--- NOTE | 2021-01-27 14:18 | US_ITS ---
PROCEDURE: US THYROID CLINICAL INDICATION: NEOPLASM THYROID COMPARISON: US THY US thyroid from 09/27/2018 US US THYROID from 11/18/2019 FINDINGS: Status post right thyroidectomy. The left lobe is 4.5 x 1.8 x 1.8 cm. The upper pole there is an ill-defined hypoechoic nodule 11 x 8 mm. Previously this was a mixed cystic and solid nodule now having a more solid appearance. A partially calcified nodules present in the mid polar region at 5 mm unchanged. In the lower pole there is an ill-defined 2 x 0.7 cm nodule not significantly changed. This is wider than tall without calcifications and is isodense slightly hypoechoic. TR level four less than 2.5 cm and stable. IMPRESSION: Overall no change in the left-sided thyroid nodule status post right thyroidectomy. Continued annual follow-up suggested. Dictated by: Nuno Patten MD 01/27/2021 16:31 Nuno Patten MD in [place] 01/27/2021 16:31
[2021-01-29 08:13] LABS: Hepatitis C Antibody <0.1 s/co ratio (0.0-0.9)
== END ==
PROVIDERS: Nurse Practitioner Family; PCP Family Medicine; Visit Provider Otolaryngology
DX: D34 Benign neoplasm of thyroid gland (principal); Z01.84 Encounter for antibody response examination
CPT/HCPCS: 36415; 76536; 87380

== ENCOUNTER → 2021-02-08 13:29 | Outpatient (CLI) | payer MEDICARE, SELFPAY ==
[2021-02-08 15:21] LABS: Thyroid Stimulating Hormone 0.52 uIU/mL (0.465-4.68)
[2021-02-10 08:30] LABS: Triiodothyronine (T3) Total 84 ng/dL (71-180)
== END ==
PROVIDERS: Visit Provider Otolaryngology
DX: D34 Benign neoplasm of thyroid gland (principal)
CPT/HCPCS: 36415; 84439; 84443; 84480

== ENCOUNTER → 2021-05-27 11:24 | Outpatient (CLI) | payer MEDICARE, SELFPAY ==
[2021-05-27 12:50] LABS: Chloride 106 mmol/L (98-107); Sodium 142 mmol/L (136-145)
[2021-05-27 12:51] LABS: Potassium 4.3 mmoL/L (3.5-5.1)
[2021-05-27 12:53] LABS: Blood Urea Nitrogen 22 mg/dl (7-17); Estimated Glomerular Filt Rate 63 ml/min (>60); GFR (African American) 76 ML/MIN (>60)
[2021-05-27 12:54] LABS: Anion Gap 14.3 mEq/L (5-15); Calcium 9.4 mg/dl (8.4-10.2); Carbon Dioxide 26 mmol/L (22.0-30.0); Glucose 105 mg/dl (74-100)
[2021-05-27 13:07] LABS: NT Pro Brain Natriuretic Pep. 80.3 pg/mL (0-125)
== END ==
PROVIDERS: Visit Provider Internal Medicine Cardiovascular Disease
DX: E78.5 Hyperlipidemia, unspecified (principal); I10 Essential (primary) hypertension; I35.1 Nonrheumatic aortic (valve) insufficiency; I51.89 Other ill-defined heart diseases; R06.02 Shortness of breath; R07.9 Chest pain, unspecified
CPT/HCPCS: 36415; 80048; 83880

== ENCOUNTER → 2021-05-27 11:32 | Outpatient (CLI) | payer MEDICARE, SELFPAY | PROVIDERS: PCP Family Medicine; Visit Provider Internal Medicine Cardiovascular Disease | DX: G47.30 Sleep apnea, unspecified (principal); R40.0 Somnolence; R06.02 Shortness of breath | CPT/HCPCS: G0399 ==

== ENCOUNTER → 2021-09-01 20:52 | Outpatient (CLI) | payer MEDICARE, SELFPAY | PROVIDERS: PCP Physician Assistant; Visit Provider Nurse Practitioner Family | DX: G47.30 Sleep apnea, unspecified (principal); G47.36 Sleep related hypoventilation in conditions classified elsewhere | CPT/HCPCS: 95810 ==

== ENCOUNTER → 2021-09-02 10:21 | Outpatient (CLI) | payer MEDICARE, SELFPAY ==
--- NOTE | 2021-09-02 10:23 | MM_ITS ---
PROCEDURE INFORMATION: Exam: MG Bilateral Screening 3D Mammography Exam date and time: 09/02/2021 10:29 AM Age: 65 years old Clinical indication: Encounter for screening mammogram for malignant neoplasm of breast TECHNIQUE: Imaging protocol: Bilateral Screening tomosynthesis and 2D mammography including computer-aided detection (CAD) when performed. COMPARISON: 1. MG MM DIG MAMM DX UNILAT LT CAD 12/12/2019 1:07 PM 2. MG MM DIG SCREENING MAMM BI W/CAD 11/18/2019 1:59 PM FINDINGS: MAMMOGRAPHY: Breast composition: The breast tissue is composed of scattered areas of fibroglandular density. Mass: None. Architectural distortion: None. Calcifications: No suspicious calcifications. Asymmetric density: None. Skin thickening: None. Axillary adenopathy: None. IMPRESSION: No mammographic evidence of malignancy. Annual screening is recommended unless otherwise clinically indicated. ASSESSMENT: BI-RADS Category 1: Negative
== END ==
PROVIDERS: PCP Family Medicine; Visit Provider Physician Assistant
DX: Z12.31 Encounter for screening mammogram for malignant neoplasm of breast (principal)
CPT/HCPCS: 77063; 77067

== ENCOUNTER → 2021-09-07 14:46 | Outpatient (CLI) | payer MEDICARE, SELFPAY ==
--- NOTE | 2021-09-07 14:51 | XR_ITS ---
FINAL REPORT TECHNIQUE: Chest PA & Lateral CLINICAL HISTORY: nocturnal hypoxemia COMPARISON: February 20, 2020 FINDINGS: 2 views of the chest were performed. The heart size is normal. The mediastinum is within normal limits. There is no acute cardiopulmonary process. There are no pleural effusions. There is no pneumothorax. Posterior fusion rods are securing the thoracic spine. There is thoracic scoliosis measuring 20 degrees convex to the right. IMPRESSION: No acute cardiopulmonary process. Reviewed, Interpreted and Dictated by Ravi Hogan MD Transcribed by Mary Conway Authenticated by Ravi Hogan MD on 09/07/2021 04:51:42 PM [facility]
== END ==
PROVIDERS: PCP Physician Assistant; Visit Provider Nurse Practitioner Family
DX: G47.34 Idiopathic sleep related nonobstructive alveolar hypoventilation (principal); I10 Essential (primary) hypertension; R53.83 Other fatigue
CPT/HCPCS: 71046

== ENCOUNTER → 2021-09-12 08:53 | Outpatient (CLI) | payer MEDICARE, SELFPAY ==
--- NOTE | 2021-09-12 08:55 | XR_ITS ---
FINAL REPORT TECHNIQUE: Bone densitometry calculations of the left forearm and each hip were obtained. CLINICAL HISTORY: . post menopausal screening FINDINGS: Using the left hip, the bone mineral density of the femoral neck is 0.948 g/cm2, corresponding to a T-score of 0.0. Using the right hip, the bone mineral density of the femoral neck is 0.935 g/cm2, corresponding to a T-score of 0.8. Using the left forearm, the bone mineral density of the distal 1/3 is 0.675 g/cm2, corresponding to a T-score of -0.3. NOTE: T-score: Standard deviation compared with peak bone mass of young adult mean. *Following the recommendations of the International Society of Bone densitometry, classification of hip BMD is based on the lower of two T-scores; total hip or femoral neck. IMPRESSION: Normal bone mineral density of the hips and left forearm. Reviewed, Interpreted and Dictated by Wm Paz III, MD Transcribed by Mary Conway Authenticated by Wm Paz III, MD on 09/12/2021 11:17:21 AM [facility]
== END ==
PROVIDERS: PCP Physician Assistant; Visit Provider Physician Assistant
DX: Z78.0 Asymptomatic menopausal state (principal)
CPT/HCPCS: 77080

== ENCOUNTER → 2021-09-14 09:48 | Outpatient (CLI) | payer MEDICARE, SELFPAY ==
[2021-09-14 10:50] VITALS: PULSE 69; PULSE 75
== END ==
PROVIDERS: PCP Physician Assistant; Visit Provider Nurse Practitioner Family
DX: R06.00 Dyspnea, unspecified (principal); G47.34 Idiopathic sleep related nonobstructive alveolar hypoventilation
CPT/HCPCS: 94060; 94618; 94640; 94727; 94729

== ENCOUNTER → 2021-12-30 13:19 | Outpatient (CLI) | payer MEDICARE, SELFPAY | PROVIDERS: PCP Family Medicine; Visit Provider Internal Medicine Pulmonary Disease | DX: R09.02 Hypoxemia (principal) | CPT/HCPCS: 94762 ==

== ENCOUNTER → 2022-07-21 09:28 | Outpatient (POV) | payer MEDICARE, SELFPAY ==
[2022-07-21 09:50] VITALS: BP 161/103; PULSE 62; RESP 18; O2SAT 99; BMI 31.1
--- NOTE | 2022-07-21 12:05 | EXP.PAIN.OV ---
HPI Data of Consult Patient: new to practice Consult date: 07/21/22 Requesting Physician: Samra Waterman APRN Primary Care Provider: Nikos Shepard Consult Narrative Reason for consult: Lumbar back pain. Bilateral hip and leg radicular symptoms History of present illness: Ms. Cano is a 66 year old female who comes our clinic today for initial evaluation regarding low back pain that she describes as constant, dull, aching. Patient also complains of bilateral hip radicular symptoms at times. She rates her pain today 8/10. Patient was in care with a pain physician in [place] with a total work-up regarding her low back pain. They began to talk treatment which was recommended medial branch blocks/facet injections lumbar L4-5, L5-S1 bilaterally. With subsequent radiofrequency ablation. However, it was discovered the pain physician's office no longer excepted her health insurance. She is here today to establish care and for treatment. Patient scoliosis correction surgery in 1977. Subsequent revision in 1997 and 1999. She is doing quite well regarding her scoliosis pain. However, she complains of low midline back pain that she says can be 10/10 at times. CC: Samra Waterman APRN [facility] Disclaimer: The information contained in this section may have been updated after the patient was seen, as this information can be updated by other users. Medical History (Updated 07/21/22 @ 12:09 by Doni Malone CRNA) Allergic rhinitis, unspecified Aortic insufficiency Dyspnea Dyspnea on exertion HLD (hyperlipidemia) Mild intermittent asthma Surgical History History of tonsillectomy Social History (Updated 07/21/22 @ 09:52 by Rachael Jones RN) Smoking Status: Never smoker second hand exposure: No alcohol intake: never counseling provided: none substance use type: denies use current occupational status: retired Travel in the last 8 weeks: None household members: spouse housing: house current occupation: [employer] current occupational exposures/hazards: No caffeine: No Review of Systems Review of Systems Review of systems (narrative): Patient is awake alert [place] x3. In no acute distress. Flexion-extension lumbar spine very guarded secondary to pain. Deep tendon reflexes upper lower extremities normal. Motor strength upper and lower extremities normal. There is no gross sensory deficit. Gait is normal. Patient does require a cane for stability. Meds Home Medications and Allergies Home Medications Medication Instructions Recorded Confirmed Type duloxetine 60 mg capsule,delayed 60 mg PO DAILY MOOD 30 days ##30 09/05/17 07/21/22 History release gabapentin 100 mg capsule 200 mg PO BID PRN BACK PAIN 07/15/20 07/21/22 History sitagliptin phos 50 mg-metformin 1 tab PO BID Diabetes 07/15/20 07/21/22 History ER 1,000 mg tablet,extend rel 24h mp trazodone 50 mg tablet 50 mg PO HS PRN Sleep 08/06/20 07/21/22 History levothyroxine 88 mcg tablet 88 mcg PO DAILY THYROID 90 days 03/17/21 07/21/22 Rx #90 tabs meloxicam 15 mg tablet 15 mg PO DAILY Pain 05/20/21 07/21/22 History aripiprazole 2 mg tablet 2 mg PO DAILY MOOD 09/07/21 07/21/22 History amlodipine 10 mg tablet See Rx Instructions .Route 07/21/22 07/21/22 History .COMPLEX BLOOD PRESSURE azelastine 137 mcg (0.1 %) nasal 1 spray intranasal BID N/A 07/21/22 07/21/22 History spray aerosol bisoprolol fumarate 5 mg tablet 5 mg PO BID BLOOD PRESSURE 07/21/22 07/21/22 History fluticasone propionate 50 2 spray intranasal DAILY ALLERGIES 07/21/22 07/21/22 History mcg/actuation nasal spray,suspension furosemide 20 mg tablet (Lasix) 20 mg PO DAILY Fluid 07/21/22 07/21/22 History losartan 100 mg tablet See Rx Instructions .Route 07/21/22 07/21/22 History .COMPLEX BLOOD PRESSURE New Prescriptions to Start Prescriptions: Allergies Allergy/AdvReac Type Sev
== END ==
PROVIDERS: PCP Family Medicine; Visit Provider Nurse Practitioner Family
DX: M96.1 Postlaminectomy syndrome, not elsewhere classified (principal); M47.816 Spondylosis without myelopathy or radiculopathy, lumbar region; M54.16 Radiculopathy, lumbar region
CPT/HCPCS: 99202; G0463

== ENCOUNTER 2022-07-25 09:36 | Day surgery (SDC) | payer MEDICARE, SELFPAY ==
[2022-07-25 09:54] VITALS: BP 163/83; PULSE 62; RESP 18; TEMP 36.8; O2SAT 97; BMI 31.1
[2022-07-25 10:04] VITALS: BP 191/94; PULSE 62; RESP 18; O2SAT 97
[2022-07-25 10:10] VITALS: BP 172/61; PULSE 51; RESP 18; O2SAT 97
--- NOTE | 2022-07-25 10:53 | P.PCN_ITS ---
Procedure Date: 07/25/22 Time: 10:15 Anesthesiologist:: Doni Malone CRNA Complications:: None Pre-procedure Diagnosis:: Degenerative disc disease lumbar spine multiple levels. Lumbar radiculopathy. Lumbar postlaminectomy syndrome. Multilevel lumbar spondylosis. Multi lumbar facet arthropathy Post-procedure Diagnosis:: Same. Indications for Procedure:: Patient is a very pleasant 66-year-old female that comes our clinic today for medial branch blocks/facet block L4-5, L5-S1 bilaterally. Patient describes her low back pain is constant, dull, aching. She rates the pain 8/10. Procedure Details:: Informed consent was obtained and the risk and benefits of the procedure was explained to the patient. Patient was taken to the procedure room where noninvasive monitors were placed, including noninvasive blood pressure cuff as well as pulse oximeter. The area over the lumbar spine was cleansed using chlorhexidine as a cleansing solution. I anesthetized the skin and subcutaneous tissues with 1% Lidocaine. I placed 22-gauge spinal needles into the facet joint/ medial branches of L4-L5, and L5-S1] bilaterally. Needle placement was confirmed with fluoroscopy. After confirmation of needle placement, each site was injected with 1 mL of 1% lidocaine and 0.25 % Marcaine and 10 mg of Depo- Medrol. A total of 80 mg of depo medrol was used for bilateral medial branch blocks of L4-L5, and L5-S1] bilaterally. Patient tolerated the procedure without difficulty. There were no complications. Plan and Disposition:: Patient was discharged without incident.
== END 2022-07-25 10:10 | disposition home or self-care (01) ==
PROVIDERS: PCP Family Medicine; Visit Provider Nurse Anesthetist, Certified Registered
DX: M51.16 Intervertebral disc disorders with radiculopathy, lumbar region (principal); M96.1 Postlaminectomy syndrome, not elsewhere classified; M47.896 Other spondylosis, lumbar region
CPT/HCPCS: 64493; 64494; J1040

== ENCOUNTER → 2022-08-10 09:54 | Outpatient (POV) | payer MEDICARE, SELFPAY ==
--- NOTE | 2022-08-10 10:18 | A.OFFVIS_ITS ---
[facility] Pain Management SOAP Note Subjective:: Patient is a pleasant 66-year-old female who presents today for follow-up of bilateral lumbar medial branch block L4-L5 and L5-S1 on 07/25/2022. We are currently treating the patient for degenerative disc disease of lumbar spine with lumbar radiculopathy symptoms, lumbar spondylosis, lumbar postlaminectomy syndrome. Today she rates her pain a 5 out of 10. Patient states that her back is 100% better and is still continuing to get relief. Patient states that she recently stepped into a hole which caused left knee pain. Patient denies any significant injury or trauma and states that it is just sore. Patient states she has been able to increase her activity and move around with decreased pain symptoms following these injections. Patient is not currently on any scheduled medications. Her Bob is [phone]. Its been reviewed and appropriate. Review of Systems: General: No recent weight changes, no fever, no sleep disturbances Respiratory: No cough, no shortness of air, no recurring pulmonary infections Cardiovascular/peripheral vascular: No chest pain, no palpitations, no edema, no shortness of breath Gastrointestinal: No new onset incontinence, normal bowel movements reported Genitourinary: No new onset incontinence Musculoskeletal: Low back pain, left knee pain Psychiatric: [Normal mood/affect] Neurological: [Denies weakness in extremities], [denies balance issues] Objective:: Physical Exam: General: Alert and oriented x3, no acute distress, pleasant and cooperative Lungs: Respirations even and unlabored, symmetrical chest expansion Eyes: PERRL Musculoskeletal: Flexion and extension of lumbar [spine] somewhat guarded secondary to pain, [antalgic gait noted] Neurological: Speech clear, no gross sensory deficit Assessment:: Degenerative disc disease of lumbar spine with lumbar radiculopathy symptoms, lumbar spondylosis, lumbar postlaminectomy syndrome, left knee pain Plan:: Patient has had significant pain improvement following her bilateral medial branch blocks of her lumbar spine and does not require any other additional injective therapy at this time. I will order the patient a compounding cream at today's visit. Patient will return to clinic in 1 month for reevaluation of symptoms and plan of care. Patient has been instructed to contact the clinic with any concerns before the next appointment. Dr. Schafer has reviewed this note and agrees with this plan of care. This note was dictated using voice recognition software and make contain errors or omissions. [facility] Disclaimer: The information contained in this section may have been updated after the patient was seen, as this information can be updated by other users. Medical History Allergic rhinitis, unspecified Aortic insufficiency Dyspnea Dyspnea on exertion HLD (hyperlipidemia) Mild intermittent asthma Surgical History History of tonsillectomy Social History Smoking Status: Never smoker second hand exposure: No alcohol intake: never counseling provided: none substance use type: denies use current occupational status: retired Travel in the last 8 weeks: None household members: spouse housing: house current occupation: [employer] current occupational exposures/hazards: No caffeine: No
[2022-08-10 10:36] VITALS: BP 159/81; PULSE 59; RESP 18; O2SAT 97; BMI 31.1
== END ==
PROVIDERS: PCP Family Medicine; Visit Provider Nurse Practitioner Family
DX: M51.16 Intervertebral disc disorders with radiculopathy, lumbar region (principal); M47.26 Other spondylosis with radiculopathy, lumbar region; M96.1 Postlaminectomy syndrome, not elsewhere classified; M25.562 Pain in left knee; Z79.899 Other long term (current) drug therapy
CPT/HCPCS: 99212; G0463

== ENCOUNTER → 2022-09-07 10:05 | Outpatient (POV) | payer MEDICARE, SELFPAY ==
[2022-09-07 10:52] VITALS: BP 139/71; PULSE 67; RESP 18; O2SAT 98; BMI 30.4
--- NOTE | 2022-09-07 11:05 | EXP.PAIN.SOA ---
[facility] Pain Management SOAP Note Subjective:: Patient is a pleasant 66-year-old female who presents today for 1 month follow-up. We are currently treating the patient for degenerative disc disease of lumbar spine with lumbar radiculopathy symptoms, lumbar spondylosis, lumbar postlaminectomy syndrome. Today she rates her pain a 6 out of 10. Patient denies any new trauma or injury. Patient denies any change location or type of pain she experiences. Patient previously had a lumbar medial branch block bilaterally of L4-L5 and L5-S1 on 07/25/2022. This injection did provide 100% relief lasting approximately a little over 2 months. Patient does state that she is starting to notice her back pain more predominantly on a regular basis. She does state this is an aching, throbbing sensation that is worse with increased activity. She states by the end of the day her pain is upwards of 8 or 9. Patient does state the pain interferes with her ability to perform activities of daily living such as cooking and cleaning and that her pain symptoms are aggravated with certain movements such as bending, lifting, twisting. Patient is currently managed with compounding cream. She does use [id number] medications as needed for additional pain relief. Her Bob is [phone]. Its been reviewed and appropriate. Review of Systems: General: No recent weight changes, no fever, no sleep disturbances Respiratory: No cough, no shortness of air, no recurring pulmonary infections Cardiovascular/peripheral vascular: No chest pain, no palpitations, no edema, no shortness of breath Gastrointestinal: No new onset incontinence, normal bowel movements reported Genitourinary: No new onset incontinence Musculoskeletal: Low back pain Psychiatric: [Normal mood/affect] Neurological: [Denies weakness in extremities], [denies balance issues] Objective:: Physical Exam: General: Alert and oriented x3, no acute distress, pleasant and cooperative Lungs: Respirations even and unlabored, symmetrical chest expansion Eyes: PERRL Musculoskeletal: Flexion and extension of lumbar [spine] somewhat guarded secondary to pain, [antalgic gait noted] positive Kemps test Neurological: Speech clear, no gross sensory deficit Assessment:: Degenerative disc disease of lumbar spine with lumbar radiculopathy symptoms, lumbar spondylosis, lumbar facet arthropathy, lumbar postlaminectomy syndrome Plan:: Patient is experiencing worsening pain symptoms in her low back with limited range of motion. I have discussed with the patient that she may benefit from a repeat medial branch block of her lumbar spine. Risk and benefits were discussed with the patient and she would like to proceed forward with this plan of care. Patient had 100% relief on her first injection lasting over 2 months. I have also discussed with the patient that in the future if she does well with the second block we will plan to do the lumbar ablation in the future. We will schedule the patient for a medial branch block of her lumbar spine bilaterally at L4-L5 and L5-S1. Patient is not on any blood thinners. Patient has been instructed to contact the clinic with any concerns before the next appointment. Dr. Schafer has reviewed this note and agrees with this plan of care. This note was dictated using voice recognition software and make contain errors or omissions. [facility] Disclaimer: The information contained in this section may have been updated after the patient was seen, as this information can be updated by other users. Medical History (Updated 08/22/22 @ 13:40 by Savage Thurman MD) Allergic rhinitis, unspecified Aortic insufficiency Asthma Dyspnea Dyspnea on exertion HLD (hyperlipidemia) Mild intermittent asthma Restrictive lung disease due to kyphoscoliosis Sleep-related breathing disorder Surgical History (Updated 08/22/22 @ 09:20 by RT Jacquelyn) History of lumbar fusion History of tonsillectomy Family History (Update
== END ==
PROVIDERS: PCP Family Medicine; Visit Provider Nurse Practitioner Family
DX: M51.16 Intervertebral disc disorders with radiculopathy, lumbar region (principal); M47.26 Other spondylosis with radiculopathy, lumbar region; M96.1 Postlaminectomy syndrome, not elsewhere classified
CPT/HCPCS: 99212; G0463

== ENCOUNTER 2022-09-19 08:51 | Day surgery (SDC) | payer MEDICARE, SELFPAY ==
[2022-09-19 09:09] VITALS: BP 194/68; PULSE 55; RESP 18; TEMP 36.4; O2SAT 98; BMI 30.4
[2022-09-19 09:21] VITALS: BP 144/60; PULSE 57; RESP 18; O2SAT 97
[2022-09-19 09:22] VITALS: BP 144/60; PULSE 57; RESP 18; O2SAT 97
--- NOTE | 2022-09-19 09:24 | P.PCN_ITS ---
Procedure Date: 09/19/22 Time: 09:22 Anesthesiologist:: Doni Malone CRNA Complications:: None Pre-procedure Diagnosis:: Degenerative disc disease lumbar spine multilevels. Lumbar radiculopathy. Lumbar postlaminectomy syndrome. Lumbar post fusion syndrome. Post-procedure Diagnosis:: Same. Indications for Procedure:: Patient is a very pleasant 66-year-old female that comes our clinic today for a repeat lumbar L4-5, L5-S1 bilateral medial branch block/facet block. Patient states moderate to significant improvement following her previous round of medial branch blocks. She complains of low back pain as well as bilateral hip pain. Patient does complain of some radicular symptoms into the legs at times. She rates her pain 7/10. Patient has had 4 separate lumbar spine surgeries. Procedure Details:: Informed consent was obtained and the risk and benefits of the procedure was explained to the patient. Patient was taken to the procedure room where noninvasive monitors were placed, including noninvasive blood pressure cuff as well as pulse oximeter. The area over the lumbar spine was cleansed using chlorhexidine as a cleansing solution. I anesthetized the skin and subcutaneous tissues with 1% Lidocaine. I placed 22-gauge spinal needles into the facet joint/ medial branches of L4-L5, and L5-S1] bilaterally. Needle placement was confirmed with fluoroscopy. After confirmation of needle placement, each site was injected with 1 mL of 1% lidocaine and 0.25 % Marcaine and 10 mg of Depo- Medrol. A total of 80 mg of depo medrol was used for bilateral medial branch blocks of L4-L5, and L5-S1] bilaterally. Patient tolerated the procedure without difficulty. There were no complications. Plan and Disposition:: Patient was discharged without incident.
[2022-09-19 09:25] VITALS: BP 155/67; PULSE 53; RESP 18; TEMP 36.4; O2SAT 98
== END 2022-09-19 09:26 | disposition home or self-care (01) ==
PROVIDERS: PCP Family Medicine; Visit Provider Nurse Anesthetist, Certified Registered
DX: M51.16 Intervertebral disc disorders with radiculopathy, lumbar region (principal); M96.1 Postlaminectomy syndrome, not elsewhere classified; M47.896 Other spondylosis, lumbar region
CPT/HCPCS: 64493; 64494; J1040

== ENCOUNTER → 2022-10-06 09:00 | Outpatient (POV) | payer MEDICARE, SELFPAY ==
[2022-10-06 09:16] VITALS: BP 139/71; PULSE 64; RESP 18; O2SAT 97; BMI 30.4
--- NOTE | 2022-10-06 09:23 | EXP.PAIN.SOA ---
[facility] Pain Management SOAP Note Subjective:: This patient is a pleasant six 6-year-old female comes our clinic today for follow-up visit after receiving lumbar medial branch blocks/facet injections at the L4-5 and L5-S1 level bilaterally. Patient reports 80% improvement in her low back pain in regards to flexion, extension, left and right rotation. Patient able to ambulate through a store without the need to sit down. This procedure was done on 09/19/2022. She had a previous first round lumbar medial branch block L4-5, L5-S1 bilaterally which she reports 4 to 5 weeks of very similar relief. She rates her pain 2/10 today. Objective:: Patient is awake alert [place] x3. In no acute distress. Flexion-extension lumbar spine somewhat guarded secondary to pain. Deep tendon reflexes upper lower extremities normal. Motor strength upper and lower extremities normal. There is no gross sensory deficit. Gait is normal Assessment:: Degenerative disc disease lumbar spine multilevels. Lumbar radiculopathy. Multilevel lumbar facet arthropathy. Lumbar spondylosis. Plan:: Discussed in detail with the patient regarding radiofrequency ablation at the L4-5 and L5-S1 levels bilaterally. She wishes to proceed. I answered her questions. I discussed risk versus benefits. [facility] Disclaimer: The information contained in this section may have been updated after the patient was seen, as this information can be updated by other users. Medical History Allergic rhinitis, unspecified Aortic insufficiency Asthma Dyspnea Dyspnea on exertion HLD (hyperlipidemia) Mild intermittent asthma Restrictive lung disease due to kyphoscoliosis Sleep-related breathing disorder Surgical History History of lumbar fusion History of tonsillectomy Family History Other Coronary artery disease Diabetes Hyperlipidemia Hypertension Social History (Updated 09/19/22 @ 09:10 by Corina Howard RN) Smoking Status: Never smoker second hand exposure: No alcohol intake: never counseling provided: none substance use type: denies use current occupational status: retired Travel in the last 8 weeks: None household members: spouse housing: house current occupation: [employer] current occupational exposures/hazards: No caffeine: No
== END ==
PROVIDERS: PCP Family Medicine; Visit Provider Nurse Anesthetist, Certified Registered
DX: M51.16 Intervertebral disc disorders with radiculopathy, lumbar region (principal); M47.26 Other spondylosis with radiculopathy, lumbar region
CPT/HCPCS: 99212; G0463

== ENCOUNTER 2022-10-24 10:55 | Day surgery (SDC) | payer MEDICARE, SELFPAY ==
[2022-10-24 11:06] VITALS: BP 160/78; PULSE 66; RESP 18; TEMP 36.3; O2SAT 95; BMI 30.4
[2022-10-24 11:23] VITALS: BP 157/84; PULSE 60; RESP 18; O2SAT 98
[2022-10-24 11:24] VITALS: BP 157/84; PULSE 60; RESP 18; O2SAT 98
[2022-10-24 11:28] VITALS: BP 179/60; PULSE 52; RESP 18; O2SAT 95
--- NOTE | 2022-10-24 11:46 | P.PCN_ITS ---
Procedure Date: 10/24/22 Time: 11:10 Anesthesiologist:: Doni Malone CRNA Complications:: None Pre-procedure Diagnosis:: Degenerative disc disease lumbar spine multilevels. Lumbar radiculopathy. Lumbar postlaminectomy syndrome. Lumbar spondylosis. Multilevel lumbar facet arthropathy. Post-procedure Diagnosis:: Same. Indications for Procedure:: Patient is a very pleasant 66-year-old female comes our clinic today for bilateral lumbar L4-5, L5-S1 radiofrequency ablation. Patient had greater than 50% improvement in terms of her overall low back pain as well as bilateral hip and leg pain with medial branch blocks/facet blocks at the same levels. Procedure Details:: Informed consent was obtained and the risk and benefits of the procedure was explained to the patient. Patient was taken to the procedure room where noninvasive monitors were placed, including noninvasive blood pressure cuff as well as pulse oximeter. The area over the lumbar spine was cleansed using chlorhexidine as a cleansing solution. I anesthetized the skin and subcutaneous tissues with 1% Lidocaine. I placed 22-gauge spinal needles into the facet joint/ medial branches of L4-L5, and L5-S1] bilaterally. Needle placement was confirmed with fluoroscopy. After confirmation of needle placement, each site was injected with 1 mL of 1% lidocaine and 0.25 % Marcaine and 10 mg of Depo- Medrol. A total of 80 mg of depo medrol was used for bilateral medial branch blocks of L4-L5, and L5-S1] bilaterally. Patient tolerated the procedure without difficulty. There were no complications. Plan and Disposition:: Patient was discharged without incident.
== END 2022-10-24 11:28 | disposition home or self-care (01) ==
LOC: SC.PAINP 10:55
PROVIDERS: PCP Family Medicine; Visit Provider Nurse Anesthetist, Certified Registered
DX: M51.16 Intervertebral disc disorders with radiculopathy, lumbar region (principal); M47.896 Other spondylosis, lumbar region; M96.1 Postlaminectomy syndrome, not elsewhere classified
CPT/HCPCS: 64635; 64636; J1040

== ENCOUNTER → 2022-11-09 10:22 | Outpatient (POV) | payer MEDICARE, SELFPAY ==
--- NOTE | 2022-11-09 10:24 | EXP.PAIN.SOA ---
[facility] Pain Management SOAP Note Subjective:: Patient is a pleasant 66-year-old female who presents today for follow-up of lumbar RFA L4-L5 and L5-S1. We are currently treating the patient for degenerative disc disease of lumbar spine with lumbar radiculopathy symptoms, lumbar spondylosis, lumbar postlaminectomy syndrome.? Today she rates her pain a 1 out of 10. She states she has had at least 90 to 95% improvement following this injections. Patient denies any new trauma or injury.? Patient denies any change location or type of pain she experiences.? She states she has been able to increase her activity following this injection and has been actually complaining thomas and doing things around her newly built house. She states she is fixing to have her final inspection and then will be moving in. Patient does state that her pain is much better and that she is sleeping better at night as well. Patient is currently managed with compounding cream.? She is not on any other scheduled medications. Her Bob is [id number].? Its been reviewed and appropriate. Review of Systems: General: No recent weight changes, no fever, no sleep disturbances Respiratory: No cough, no shortness of air, no recurring pulmonary infections Cardiovascular/peripheral vascular: No chest pain, no palpitations,? no edema, no shortness of breath Gastrointestinal: No new onset incontinence, normal bowel movements reported Genitourinary: No new onset incontinence Musculoskeletal: Low back pain Psychiatric: [Normal mood/affect] Neurological: [Denies weakness in extremities], [denies balance issues] Objective:: Physical Exam: General: Alert and oriented x3, no acute distress, pleasant and cooperative Lungs: Respirations even and unlabored, symmetrical chest expansion Eyes: PERRL Musculoskeletal: Flexion and extension of lumbar [spine] somewhat guarded secondary to pain, [antalgic gait noted] Neurological: Speech clear, no gross sensory deficit Assessment:: Degenerative disc disease of lumbar spine with lumbar radiculopathy symptoms, lumbar spondylosis, lumbar postlaminectomy syndrome Plan:: Patient has had significant improvement following her lumbar RFA and does not require any additional injective therapy. Patient will return to clinic in 1 month for reevaluation of symptoms and plan of care. Patient has been instructed to contact the clinic with any concerns before the next appointment. Dr. Schafer has reviewed this note and agrees with this plan of care. This note was dictated using voice recognition software and make contain errors or omissions. [facility] Disclaimer: The information contained in this section may have been updated after the patient was seen, as this information can be updated by other users. Medical History Allergic rhinitis, unspecified Aortic insufficiency Asthma Dyspnea Dyspnea on exertion HLD (hyperlipidemia) Mild intermittent asthma Restrictive lung disease due to kyphoscoliosis Sleep-related breathing disorder Surgical History History of lumbar fusion History of tonsillectomy Family History Other Coronary artery disease Diabetes Hyperlipidemia Hypertension Social History Smoking Status: Never smoker second hand exposure: No alcohol intake: never counseling provided: none substance use type: denies use current occupational status: retired Travel in the last 8 weeks: None household members: spouse housing: house current occupation: [employer] current occupational exposures/hazards: No caffeine: No
[2022-11-09 10:30] VITALS: BP 173/67; PULSE 57; RESP 20; BMI 30.4
== END ==
PROVIDERS: PCP Family Medicine; Visit Provider Nurse Practitioner Family
DX: M51.16 Intervertebral disc disorders with radiculopathy, lumbar region (principal); M47.26 Other spondylosis with radiculopathy, lumbar region; M96.1 Postlaminectomy syndrome, not elsewhere classified
CPT/HCPCS: 99212; G0463

== ENCOUNTER → 2022-12-07 10:35 | Outpatient (POV) | payer MEDICARE, SELFPAY ==
[2022-12-07 10:41] VITALS: BP 169/56; PULSE 54; RESP 18; O2SAT 97; BMI 30.4
--- NOTE | 2022-12-07 10:46 | A.OFFVIS_ITS ---
[facility] Pain Management SOAP Note Subjective:: Patient is a pleasant 67-year-old female who presents today for 1 month follow- up. We are currently treating the patient for degenerative disc disease of the lumbar spine with lumbar radiculopathy symptoms, lumbar postlaminectomy syndrome, lumbar spondylosis, lumbar facet arthropathy. Today she rates her pain a 1 out of 10. Patient states she continues to get significant relief from her previous lumbar ablation back at the beginning of October. Patient states she has been able to increase her activity and do things that she really enjoys again such as cooking and working in her garden. Patient is not on any scheduled medications currently. She has had compounding cream in the past. Eli Rojas is [id number]. Its been reviewed and appropriate. Review of Systems: General: No recent weight changes, no fever, no sleep disturbances Respiratory: No cough, no shortness of air, no recurring pulmonary infections Cardiovascular/peripheral vascular: No chest pain, no palpitations, no edema, no shortness of breath Gastrointestinal: No new onset incontinence, normal bowel movements reported Genitourinary: No new onset incontinence Musculoskeletal: Low back pain Psychiatric: [Normal mood/affect] Neurological: [Denies weakness in extremities], [denies balance issues] Objective:: Physical Exam: General: Alert and oriented x3, no acute distress, pleasant and cooperative Lungs: Respirations even and unlabored, symmetrical chest expansion Eyes: PERRL Musculoskeletal: Flexion and extension of lumbar [spine] somewhat guarded secondary to pain, [antalgic gait noted] Neurological: Speech clear, no gross sensory deficit Assessment:: Degenerative disc disease of lumbar spine with lumbar radiculopathy symptoms, lumbar postlaminectomy syndrome, lumbar spondylosis, lumbar facet arthropathy Plan:: Patient continues to experience significant pain relief following her lumbar ablation and does not require any additional injective therapy. Patient will return to clinic in 3 months for reevaluation of symptoms and plan of care. Patient has been instructed to contact the clinic with any concerns before the next appointment. Dr. Schafer has reviewed this note and agrees with this plan of care. This note was dictated using voice recognition software and make contain errors or omissions. [facility] Disclaimer: The information contained in this section may have been updated after the patient was seen, as this information can be updated by other users. Medical History Allergic rhinitis, unspecified Aortic insufficiency Asthma Dyspnea Dyspnea on exertion HLD (hyperlipidemia) Mild intermittent asthma Restrictive lung disease due to kyphoscoliosis Sleep-related breathing disorder Surgical History History of lumbar fusion History of tonsillectomy Family History Other Coronary artery disease Diabetes Hyperlipidemia Hypertension Social History Smoking Status: Never smoker second hand exposure: No alcohol intake: never counseling provided: none substance use type: denies use current occupational status: retired Travel in the last 8 weeks: None household members: spouse housing: house current occupation: [employer] current occupational exposures/hazards: No caffeine: No
== END ==
PROVIDERS: PCP Family Medicine; Visit Provider Nurse Practitioner Family
DX: M51.16 Intervertebral disc disorders with radiculopathy, lumbar region (principal); M96.1 Postlaminectomy syndrome, not elsewhere classified; M47.26 Other spondylosis with radiculopathy, lumbar region
CPT/HCPCS: 99212; G0463

== ENCOUNTER → 2023-05-14 10:24 | Outpatient (POV) | payer MEDICARE, SELFPAY ==
--- NOTE | 2023-05-14 11:11 | EXP.PAIN.SOA ---
[facility] Pain Management SOAP Note Subjective:: Patient is a pleasant 67-year-old female who presents today for follow-up. We are currently treating the patient for degenerative disc disease of lumbar spine with lumbar radiculopathy symptoms, lumbar facet arthropathy, lumbar spondylosis. Today she rates her pain a 7 out of 10. Patient denies any new trauma or injury. Patient does state that she is having worsening low back pain that is worse with certain movements such as bending, twisting or lifting. Patient does state that over the last couple of weeks it is progressively worsened. It does interfere with her ability perform activities of daily living such as cooking and cleaning. Patient previously had a lumbar RFA bilaterally of L4-L5 and L5-S1 back on October 24, 2022 that did provide significant relief. Patient does believe this is started to wear off. She is prescribed compounding cream. Her Bob has been reviewed and is appropriate. Review of Systems: General: No recent weight changes, no fever, no sleep disturbances Respiratory: No cough, no shortness of air, no recurring pulmonary infections Cardiovascular/peripheral vascular: No chest pain, no palpitations, no edema, no shortness of breath Gastrointestinal: No new onset incontinence, normal bowel movements reported Genitourinary: No new onset incontinence Musculoskeletal: Low back pain Psychiatric: [Normal mood/affect] Neurological: [Denies weakness in extremities], [denies balance issues] Objective:: Physical Exam: General: Alert and oriented x3, no acute distress, pleasant and cooperative Lungs: Respirations even and unlabored, symmetrical chest expansion Eyes: PERRL Musculoskeletal: Flexion and extension of lumbar [spine] somewhat guarded secondary to pain, [antalgic gait noted] positive Kemps test Neurological: Speech clear, no gross sensory deficit Assessment:: Degenerative disc disease of lumbar spine with lumbar radiculopathy symptoms, lumbar facet arthropathy, lumbar spondylosis Plan:: Patient is experiencing worsening pain in her low back with limited range of motion. Patient denies any radiating symptoms into her legs. She did have a positive Kemps sign during today's visit. I have discussed with the patient that she may benefit from repeat lumbar RFA. Risk and benefits were discussed and she would like to proceed forward with this plan of care. Patient is not on any blood thinners. Patient did have 2 successful medial branch blocks in the past and a very successful lumbar ablation back in October. Patient will be scheduled for a lumbar RFA bilaterally L4-L5 and L5-S1. This will be done under fluoroscopic guidance. Patient has been instructed to contact the clinic with any concerns before the next appointment. Dr. Schafer has reviewed this note and agrees with this plan of care. This note was dictated using voice recognition software and make contain errors or omissions. [facility] Disclaimer: The information contained in this section may have been updated after the patient was seen, as this information can be updated by other users. Medical History Allergic rhinitis, unspecified Aortic insufficiency Asthma Dyspnea Dyspnea on exertion HLD (hyperlipidemia) Mild intermittent asthma Restrictive lung disease due to kyphoscoliosis Sleep-related breathing disorder Surgical History History of lumbar fusion History of tonsillectomy Family History Other Coronary artery disease Diabetes Hyperlipidemia Hypertension Social History Smoking Status: Never smoker second hand exposure: No alcohol intake: never counseling provided: none substance use type: denies use current occupational status: retired Travel in the last 8 weeks: None
[2023-05-14 12:47] VITALS: BP 186/71; PULSE 57; RESP 19; O2SAT 95; BMI 31.3
== END ==
LOC: SC.PAIN 10:25
PROVIDERS: PCP Family Medicine; Visit Provider Nurse Practitioner Family
DX: M51.16 Intervertebral disc disorders with radiculopathy, lumbar region (principal); M47.26 Other spondylosis with radiculopathy, lumbar region
CPT/HCPCS: 99212; G0463

== ENCOUNTER 2023-05-19 12:12 | Emergency (ER) | payer MEDICARE, SELFPAY ==
[2023-05-19 13:45] VITALS: BP 176/71; PULSE 53; RESP 18; TEMP 36.7; O2SAT 94; BMI 31.3
--- NOTE | 2023-05-19 14:02 | EXP.UTC ---
Discharge Plan Disposition Patient Disposition: Home, Self-Care Condition: Good Prescriptions Prescriptions: New amoxicillin [amoxicillin] 500 mg tablet 500 mg PO BID 10 Days Qty: 20 0RF No Action duloxetine 60 mg capsule,delayed release(DR/EC) 60 mg PO DAILY 30 Days Qty: 30 Patient Comments: trazodone 50 mg tablet 50 mg PO HS PRN (Reason: Sleep) meloxicam 15 mg tablet 15 mg PO DAILY aripiprazole 2 mg tablet 2 mg PO DAILY sitagliptin phos-metformin 50-1,000 mg tablet, ER multiphase 24 hr 1 tab PO BID albuterol sulfate 90 mcg/actuation HFA aerosol inhaler 2 inh inhalation Q6H PRN (Reason: shortness of breath or wheezing) 90 Days Qty: 8.5 1RF levothyroxine 88 mcg tablet 88 mcg PO DAILY 90 Days Qty: 90 2RF losartan 100 mg tablet See Rx Instructions .ROUTE .COMPLEX Qty: 90 1RF Dose Instruction: TAKE 1 TABLET BY MOUTH EVERY DAY Rx Instructions: TAKE 1 TABLET BY MOUTH EVERY DAY amlodipine 10 mg tablet See Rx Instructions .ROUTE .COMPLEX Qty: 90 3RF Dose Instruction: TAKE 1 TABLET BY MOUTH EVERY DAY Rx Instructions: TAKE 1 TABLET BY MOUTH EVERY DAY gabapentin 100 mg capsule 200 mg PO BID PRN (Reason: BACK PAIN) bisoprolol fumarate 5 mg tablet 5 mg PO BID furosemide [Lasix] 20 mg tablet 20 mg PO DAILY azelastine 137 mcg (0.1 %) aerosol,spray 1 spray INTRANASAL BID Rx Instructions: administer into each nostril fluticasone propionate 50 mcg/actuation spray,suspension 2 spray INTRANASAL DAILY Rx Instructions: administer into each nostril fluticasone furoate-vilanterol [Breo Ellipta] 200-25 mcg/dose blister with device 1 inh inhalation DAILY Referrals Follow up/Referrals: Nikos Shepard [Primary Care Provider] - See instructions Activity Restrictions/Add. Instructions Additional Instructions/Restrictions: Start antibiotic as soon as possible and be sure to take as ordered for full length of time even though he should start feeling better in 24-48 hours. Tylenol or Motrin as needed for pain or fever Encourage fluids, water, Gatorade, Powerade, Pedialyte if /toddler/child Warm compresses often helps when placed over ear Return immediately for new or worsening symptoms no noticeable improvement in 48-72 hours and in 10-14 days to ensure the ears are return to baseline. Follow-up with primary care Clinical Impressions Clinical Impression: Otitis media Qualifiers: Otitis media type: suppurative Chronicity: acute Laterality: left Recurrence: non-recurrent Spontaneous tympanic membrane rupture: with spontaneous rupture Qualified Code(s): H66.012 - Acute suppurative otitis media with spontaneous rupture of ear drum, left ear Instructions Patient Instructions: Middle Ear Infection Discharge ED Provider: Lyndsay ([facility])Yves [facility] HPI General Stated complaint: ear pain Mode of Arrival: Ambulatory Source of Information: Patient Limitations: No Limitations Time Seen by Provider: 05/19/23 14:02 Description of Symptoms (Recalled from Triage Doc. by RN): left ear pain HEENT Symptoms (Recalled from RN notes): Yes Resp Symptoms (Recalled from RN notes): No Skin Symptoms (Recalled from RN notes): No MS Symptoms (Recalled from RN notes): No Functional Status (Recalled from RN notes): n/a History of Present Illness Provider Complaint: 67 yr old female presents for left ear pain with bloody drainage that started thurs Related Data Home Medications Medication Instructions Recorded Confirmed duloxetine 60 mg capsule,delayed 60 mg PO DAILY MOOD 30 days ##30 09/05/17 05/14/23 release gabapentin 100 mg capsule 200 mg PO BID PRN BACK PAIN 07/15/20 05/14/23 sitagliptin phos 50 mg-metformin 1 tab PO BID Diabetes 07/15/20 05/14/23 ER 1,000 mg tablet,extend rel 24h mp trazodone 50 mg tablet 50 mg PO HS PRN Sleep 08/06/20 05/14/23 meloxicam 15 mg tablet 15 mg PO DAILY Pain 05/20
[2023-05-19 14:11] VITALS: BP 176/71; PULSE 53; RESP 18; TEMP 36.7; O2SAT 94
== END 2023-05-19 14:11 | disposition home or self-care (01) ==
PROVIDERS: Emergency Provider Nurse Practitioner Family; PCP Family Medicine
DX: H66.012 Acute suppurative otitis media with spontaneous rupture of ear drum, left ear (principal); I35.1 Nonrheumatic aortic (valve) insufficiency; J45.909 Unspecified asthma, uncomplicated; E78.5 Hyperlipidemia, unspecified
CPT/HCPCS: 99204; 99212; G0463

== ENCOUNTER 2023-06-15 11:47 | Day surgery (SDC) | payer MEDICARE, SELFPAY ==
[2023-06-15 12:10] VITALS: BP 164/71; PULSE 75; RESP 16; TEMP 36.3; O2SAT 95; BMI 30.4
[2023-06-15] MEDS: methylPREDNISolone ACETATE 80MG/ML VIAL 80 MG (12:39)
[2023-06-15] MEDS: BUPIVACAINE 0.25% 10ML INJ 25 MG IJ (12:39)
[2023-06-15] MEDS: LIDOCAINE 1% 5ML PF VIAL 15 ML (12:39)
[2023-06-15 12:40] VITALS: BP 194/90; PULSE 64; RESP 18; O2SAT 94
[2023-06-15 12:41] VITALS: BP 190/90; PULSE 66; RESP 18; O2SAT 94
[2023-06-15 12:47] VITALS: BP 185/76; PULSE 53; RESP 16; O2SAT 95
--- NOTE | 2023-06-15 12:47 | P.PCN_ITS ---
Procedure Date: 06/15/23 Time: 12:00 Anesthesiologist:: Doni Malone CRNA Complications:: None Pre-procedure Diagnosis:: Degenerative disc lumbar spine multilevels. Lumbar radiculopathy. Lumbar spondylosis. Multilevel lumbar facet arthropathy. Lumbar postlaminectomy syndrome. Post-procedure Diagnosis:: Same. Indications for Procedure:: Patient is a very pleasant 67-year-old female comes our clinic today for bilateral radiofrequency ablation lumbar L4-5, L5-S1 bilaterally. Patient has responded well to this in the past. She reports low back pain with standing, ambulating, flexion, extension left and right rotation. Sitting for any length of time increases low back pain she describes it as constant, dull, aching. She rates her pain 7/10. Procedure Details:: Informed consent was obtained and the risk and benefits of the procedure was explained to the patient. Patient was placed prone on the procedure table. The patient was prepped and draped in sterile fashion. C-arm fluoroscopy was used to view the lumbar spine. The skin and subcutaneous tissues were anesthetized using lidocaine. I placed 20-gauge RF needles into the facet joints of, L4-L5 and L5- S1 on the left side. We underwent sensory stimulation. There is good sensory stimulation at 0.8 V. We underwent motor stimulation. There is no motor stimulation at 2 V. We then anesthetized these levels with lidocaine and Depo- Medrol. I used a total of 40 mg Depo-Medrol for all 3 levels. I then burned all 3 levels of L4-5 and L5-S1 on the left side for 4 minutes at 80 ?C. This process was then repeated on the right side. Patient tolerated the procedure well with no complication. Plan and Disposition:: Patient was discharged without incident.
== END 2023-06-15 12:47 | disposition home or self-care (01) ==
PROVIDERS: PCP Family Medicine; Visit Provider Nurse Anesthetist, Certified Registered
DX: M51.16 Intervertebral disc disorders with radiculopathy, lumbar region (principal); M47.816 Spondylosis without myelopathy or radiculopathy, lumbar region; M96.1 Postlaminectomy syndrome, not elsewhere classified
CPT/HCPCS: 64635; 64636; J1040

== ENCOUNTER → 2023-06-27 14:58 | Outpatient (POV) | payer MEDICARE, SELFPAY ==
[2023-06-27 15:20] VITALS: BP 124/72; PULSE 65; RESP 18; O2SAT 95; BMI 30.4
--- NOTE | 2023-06-27 15:37 | A.OFFVIS_ITS ---
[facility] Pain Management SOAP Note Subjective:: Patient is a pleasant 67-year-old female who presents today for follow-up of lumbar radiofrequency ablation of L4-L5 and L5-S1 bilaterally on 06/15/2023. We are currently treating the patient for degenerative disc disease of lumbar spine with lumbar radiculopathy symptoms, lumbar facet arthropathy, lumbar spondylosis. Today she rates her pain a 3 out of 10. Patient does state that she has had at least 90% improvement following this injection and that it is still providing additional relief. Patient states she has been able to increase her activity with decreased pain symptoms and feels overall more functional. Patient does state initially she did have significant pain while doing this procedure and did have swelling at the sites of these injections. Patient states that has improved however she does states she continues to have weakness in her bilateral lower extremities. Patient states she recently went to a family members apartment who lives upstairs and she had difficulty going up the stairs. Patient states she feels like she is weak and often times will get off balance and worried that she might fall. Patient is requesting if I can order physical therapy for her. Patient is prescribed compounded cream. Her Bob has been reviewed and is appropriate. Review of Systems: General: No recent weight changes, no fever, no sleep disturbances Respiratory: No cough, no shortness of air, no recurring pulmonary infections Cardiovascular/peripheral vascular: No chest pain, no palpitations, no edema, no shortness of breath Gastrointestinal: No new onset incontinence, normal bowel movements reported Genitourinary: No new onset incontinence Musculoskeletal: Bilateral lower extremity weakness Psychiatric: [Normal mood/affect] Neurological: [Denies weakness in extremities], [denies balance issues] Objective:: Physical Exam: General: Alert and oriented x3, no acute distress, pleasant and cooperative Lungs: Respirations even and unlabored, symmetrical chest expansion Eyes: PERRL Musculoskeletal: Flexion and extension of lumbar [spine] somewhat guarded secondary to pain, [antalgic gait noted] Neurological: Speech clear, no gross sensory deficit Assessment:: Degenerative disc disease of lumbar spine with lumbar radiculopathy symptoms, lumbar facet arthropathy, lumbar spondylosis Plan:: Patient has had significant improvement following her lumbar RFA and does not require any additional injection therapy at this time. I will order the patient physical therapy for her low back pain and lower extremity weakness. Patient will return clinical evaluation of symptoms and plan of care. Patient has been instructed to contact the clinic with any concerns before the next appointment. Dr. Schafer has reviewed this note and agrees with this plan of care. This note was dictated using voice recognition software and make contain errors or omissions. [facility] Disclaimer: The information contained in this section may have been updated after the patient was seen, as this information can be updated by other users. Medical History Allergic rhinitis, unspecified Aortic insufficiency Asthma Dyspnea Dyspnea on exertion HLD (hyperlipidemia) Mild intermittent asthma Restrictive lung disease due to kyphoscoliosis Sleep-related breathing disorder Surgical History History of lumbar fusion History of tonsillectomy Family History Other Coronary artery disease Diabetes Hyperlipidemia Hypertension Social History Smoking Status: Never smoker second hand exposure: No alcohol intake: never counseling provided: none substance use type: denies use current occupational status: retired Travel in the last 8 weeks: None household members: spouse housing: house current occupation: [employer] current occupational exposures/hazards: No caffeine: No
== END ==
LOC: SC.PAIN 14:59
PROVIDERS: PCP Family Medicine; Visit Provider Nurse Practitioner Family
DX: M51.16 Intervertebral disc disorders with radiculopathy, lumbar region (principal); M47.26 Other spondylosis with radiculopathy, lumbar region
CPT/HCPCS: 99212; G0463

== ENCOUNTER 2023-08-09 10:00 | Outpatient (RCR) | payer MEDICARE, SELFPAY ==
--- NOTE | 2023-07-13 14:56 | HMH.PTOPEV ---
PT Outpatient Evaluation Rehab PT Outpatient Evaluation Start: 07/13/23 14:00 Freq: Status: Active Protocol: Document 07/13/23 14:26 NATHAN (Rec: 07/13/23 14:56 NATHAN [id number]) E-signed By Andrea Osborne, PT Outpatient Therapy Subjective History Subjective History This is the initial PT eval for Tatyana Cano, 67 yowf who presents with chronic low back pain all my life and newer onset fo poor balance and coordination. She recently underwent L4/5 and L5/S1 ablation procedure which, didn't really help me much at all. She also has hx of loyola rods throughout her spine due to scoliosis which severely limits her baseline ROM throughout her spine. She also has PMH of open CCY, C- section, partial hysterectomy and NOEMY. Chief Complaint Pain,Stiff,Weakness,Decreased Coordination Symptom Type Ache Symptoms Relieved By Rest/Positioning,Heat,Ice Symptoms Aggravated By Physical Activity,Walking Prior Functional Limitations Standing,Sitting,Walking Current Functional Limitations Housework,Standing,Sitting, Recreation Activity,Walking, Stairs Symptom Description Constant but Variable Level of pain today (0-10) 4 Pain scale - at its worst (0-10) 10 Lumbopelvic Eval Manual Muscle Test Bilateral Knee Extension Strength Grade 5 Normal Knee Flexion Strength Grade 4 Good Hip Flexion Strength Grade 4- Good- Hip Abduction Strength Grade 4 Good Hip Adduction Strength Grade 5 Normal Extensor Hallucis Longus Strength Grade 5 Normal Ankle Dorsiflexion Strength Grade 5 Normal Gastronemius/Soleus Strength Grade 5 Normal Dynamic Gait Index Test Protocol Gait Level Surface Normal Query Text: Instructions: Walk at your normal speed from here to the next abbi (20'). Grading: Abbi the lowest category that applies. Change in Gait Speed Normal Query Text: Instructions: Begin walking at your normal pace (for 5'), when I tell you go , walk as fast as you can (for 5'). When I tell you slow , walk as slowly as you can (for 5'). Grading: Abbi the lowest category that applies. Gait with Horizontal Head Turns Mild Impairment Query Text: Instructions: Begin walking at your normal pace. When I tell you to look right , keep walking straight, but turn you head to the right. Keep looking to the right unit I tell you look left , then keep walking straight and turn your head to the left. Keep your head to the left until I tell you look straight , then keep walking straight, but return you head to the center. Grading: Abbi the lowest category that applies. Gait with Vertical Head Turns Mild Impairment Query Text: Instructions: Begin walking at your normal pace. When I tell you to look up , keep walking staight, but tip your head up. Keep looking up until I tell you to look down , then keep walking straight and tip your head down. Keep your head down until I tell you look straight , then keep walking straight, but return your head to the center. Grading: Abbi the lowest category that applies. Gait and Pivot Turn Moderate Impairment Query Text: Instructions: Begin walking at your normal pace. When I tell you turn and stop , turn as quickly as you can to face the opposite direction and stop. Grading: Abbi the lowest category that applies. Step Over Obstacle Moderate Impairment Query Text: Instructions: Begin walking at your normal speed. When you come to the shoebox, step over it, not around it and keep walking. Grading: Abbi the lowest category that applies. Step Around Obstacles Normal Query Text: Instructions: Begin walking at normal speed. When you come to the first cone (about 6' away), walk around the right side of it. When you come to the second cone (6' past first cone), walk around it to the left. Grading: Abbi the lowest category that applies. Steps Moderate Impairment Query Text: Instructions: Walk up these stairs as you would at home. At the top, turn around and walk down. Grading: Abbi the lowest category that applies. Scoring Dynamic Gait Index Score 16 Oswestry Index Section 1 Pain Intensity The pain is moderate and does not vary much Section 2 Personal Care (Washing,Dresing) my way of washing or dressing even though it causes some pain Section 3 Lifting I can only lift very light weights at most Section 4 Walking I cannot walk more than 1/4 mile without increasing pain Section 5 Sitting Pain prevents me from sitting for more than one hour Section 6 Standing I cannot stand more than 1/2 hour without increasing pain Section 7 Sleeping Because of my pain, my normal night's sleep is less than 4 hours Section 8 Social Life Pain has restricted my social life and I do not go out often Section 9 Traveling I get extra pain while traveling, but it does not compel me to seek al Section 10 Changing Degreee of Pain My pain is neither getting better or worse Score and Risk Level Oswestry Sc 29 Oswestry Risk Level Severe Disability Outpatient Therapy Assessment Impairments Problems/Impairmments Impaired Range of Motion, Impaired Strength,Impaired Endurance,Impaired Gait Pattern,Impaired Walking, Impaired Standing,Impaired Lifting,Impaired Dressing, Impaired Shower/Bathing, Impaired Household Care, Impaired Stair Climbing, Impaired Incline Stepping, Impaired Stepping on Uneven Surface,Impaired Squatting, Impaired Bending,Impaired Recreational Activities, Impaired Balance,Impaired DGI Score,Subjective C/O Pain, Impaired Self Care/Self Management Prognosis Rehab Potential Good Clinical Impression Consistent with Diagnosis Yes Short Term Goals Number of Weeks 2 Increase Strength Yes: B LE 4/5 throughout Improve Gait Pattern without Assistive Yes Device Improve Balance Yes Increase DGI Score Yes: >18 Patient to be Ind w/ HEP Yes Bowling Ball Molder Goals Number of Weeks 4 Increase Strength Yes: B LE 5/5 throughout Increase Ability to Walk Yes: > 15 min without discomfort Improve Ability to Climb Stairs Yes Improve Ability to Step on Uneven Yes Surfaces Increase DGI Score Yes: >20 Patient to be Ind w/ Advanced HEP Yes Outpatient Therapy Plan of Care Treatment Plan May Include Therapeutic Exercise Including Home Yes Exercise Program Manual Therapy Techniques Yes Neuromuscular Re-education Yes Gait Training Yes ADL/Self Care Education Yes Thermal Modalities Yes Electrical Stimulation Yes Orthotics/Bracing/Splinting Yes Massage Yes Eval/Re-Eval Yes Aquatic Therapy Yes Frequency Times per week 2 Duration Number of Weeks 4 Addendums This patient is a candidate for social No or vocational rehab? Patient/Guardian verbally acknowledges Yes understanding of treatment program and consents to further treatment? Patient/Guardian verbally acknowledges Yes understanding of diagnosis, prognosis and goals for treatment? Eval Complexity PT Charges 93046 - High Complexity Shoulder/Elbow Eval Shoulder Objective Measurements Elbow Objective Measurements PHYSICIAN CERTIFICATION: I certify the specified therapy services for Tatyana Cano are required, authorized, and reviewed every 30 days.
== END 2023-08-09 10:05 | disposition home or self-care (01) ==
LOC: PT 10:00
PROVIDERS: PCP Family Medicine; Visit Provider Nurse Practitioner Family
DX: M54.50 Low back pain, unspecified (principal)
CPT/HCPCS: 97110; 97163; 97530

== ENCOUNTER 2023-08-27 09:32 | Outpatient (POV) | payer MEDICARE, SELFPAY ==
--- NOTE | 2023-08-27 10:00 | EXP.PAIN.SOA ---
[facility] SOAP [facility] Subjective:: Patient is a pleasant 57-year-old female who presents today for follow-up. We are currently treating the patient for degenerative disc disease of the lumbar spine with lumbar radiculopathy symptoms, lumbar facet arthropathy, lumbar spondylosis. Today she rates her pain a 10 out of 10. Patient states that she all of a sudden over the last couple weeks has been experiencing worsening pain in and around her low back and right hip. Patient does state that it goes into her buttocks area and describes it as an aching, throbbing sensation that is worse with increased activity cavity such as walking or standing. Patient states that she has tried Tylenol and ibuprofen along with heat and ice and her compounded cream with minimal relief. Patient was going to physical therapy prior to this pain and states that it was really making a difference in her leg weakness. Patient did stop her physical therapy currently due to the knee pain however she would like to get back to this soon as possible. Her Bob has been reviewed and is appropriate. Review of Systems: General: No recent weight changes, no fever, no sleep disturbances Respiratory: No cough, no shortness of air, no recurring pulmonary infections Cardiovascular/peripheral vascular: No chest pain, no palpitations, no edema, no shortness of breath Gastrointestinal: No new onset incontinence, normal bowel movements reported Genitourinary: No new onset incontinence Musculoskeletal: Low back pain, right hip pain Psychiatric: [Normal mood/affect] Neurological: [Denies weakness in extremities], [denies balance issues] Objective:: Physical Exam: General: Alert and oriented x3, no acute distress, pleasant and cooperative Lungs: Respirations even and unlabored, symmetrical chest expansion Eyes: PERRL Musculoskeletal: Flexion and extension of lumbar [spine] somewhat guarded secondary to pain, [antalgic gait noted] point tenderness along right SI with positive right Pilar's, Vernon's, Gaenslen's, compression and distraction exam Neurological: Speech clear, no gross sensory deficit Assessment:: Degenerative disc disease of lumbar spine with lumbar radiculopathy symptoms, lumbar facet arthropathy, lumbar spondylosis Plan:: Patient did have point tenderness along her right SI with a positive right Pilar's, Vernon's, Gaenslen's, compression and distraction exam. I have discussed with the patient that she may benefit from a right SI injection. Risk and benefits were discussed with patient and she would like to proceed forward with this plan of care. Patient has tried and failed conservative treatment such as oral medication, heat and ice, compounded cream and current physical therapy. Patient will be scheduled for a right SI injection under fluoroscopy. Patient has been instructed to contact the clinic with any concerns before the next appointment. Dr. Schafer has reviewed this note and agrees with this plan of care. This note was dictated using voice recognition software and make contain errors or omissions. [facility] Disclaimer: The information contained in this section may have been updated after the patient was seen, as this information can be updated by other users. Medical History Allergic rhinitis, unspecified Aortic insufficiency Asthma Dyspnea Dyspnea on exertion HLD (hyperlipidemia) Mild intermittent asthma Restrictive lung disease due to kyphoscoliosis Sleep-related breathing disorder Surgical History History of lumbar fusion History of tonsillectomy Family History Other Coronary artery disease Diabetes Hyperlipidemia Hypertension Social History Smoking Status: Never smoker second hand exposure: No alcohol intake: never counseling provided: none substance use type: denies use current occupational status: retired Travel in the last 8 weeks: None household members: spouse housing: house current occupation: [employer] current occupational exposures/hazards: No caffeine: No
[2023-08-27 10:04] VITALS: BP 194/77; PULSE 55; RESP 19; O2SAT 96; BMI 31.3
== END 2023-08-27 23:59 ==
LOC: SC.PAIN 09:33
PROVIDERS: PCP Family Medicine; Visit Provider Nurse Practitioner Family
DX: M51.16 Intervertebral disc disorders with radiculopathy, lumbar region (principal); M47.26 Other spondylosis with radiculopathy, lumbar region; M46.1 Sacroiliitis, not elsewhere classified
CPT/HCPCS: 99212; G0463